=== PATIENT | male | born 1940 | race Caucasian/White ===

== ENCOUNTER 2018-02-25 18:37 | Inpatient (IN) | END 2018-03-13 14:15 | DRG 57 | DX: G30.1 Alzheimer's disease with late onset (principal); F02.81 Dementia in other diseases classified elsewhere, unspecified severity, with behavioral disturbance; I50.9 Heart failure, unspecified; R17 Unspecified jaundice; I25.10 Atherosclerotic heart disease of native coronary artery without angina pectoris; I25.2 Old myocardial infarction; Z59.0 Homelessness; Z86.73 Personal history of transient ischemic attack (TIA), and cerebral infarction without residual deficits; Z91.14 Patient's other noncompliance with medication regimen ==

== ENCOUNTER → 2018-03-27 | Outpatient (CLI) | payer MEDICARE ==
[~2018-03-27] MED LIST: CARV3.12 PO; ECASA81 PO; IOHEXOL 350 MG/ML 10 ML VIAL (for RAD DIAG) IVCONTRAST ONE; SERO50TA PO
--- NOTE | 2018-03-27 16:21 | RADRPT ---
EXAM DATE: 03/27/2018 4:06 PM EDT AGE/SEX: 77 years / Male INDICATIONS: Lower extremity pain with non healing wound left lower leg. CLINICAL DATA: This is the patient's initial encounter. Patient reports that signs and symptoms have been present for 1 month and indicates a pain score of 5/10. MEDICAL/SURGICAL HISTORY: Cardiovascular disease. Congestive heart failure. None. RADIATION DOSE: 8.20 CTDI (mGy) COMPARISON: No prior [place] exams available for comparison. TECHNIQUE: Volumetric scanning was performed using a multi-row detector CT scanner during bolus infu beto of 95 ml Omnipaque 350 (iohexol) nonionic water-soluble contrast as a single exam dose. The d johanna was post processed with a variety of visualization algorithms including full volume maximum inten sity projection, multi-planar sliding thin slab reformation, curved planar reformation, and surface r endering techniques. Using automated exposure control and adjustment of the mA and/or kV according t o patient size, radiation dose was kept as low as reasonably achievable to obtain optimal diagnostic quality images. FINDINGS: The abdominal aorta is notable for mild atheromatous irregularity and patchy intimal calcification. N o aortic stenosis, aneurysm or dissection is identified. Looking at the aortic visceral vessels, ther e is moderate arcuate ligament compression of the celiac artery. 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 Moderately severe bilateral renal artery stenosis. Ostial stenosis of the TIFFANI. In the pelvis, no significant iliac inflow stenosis is identified. The hypogastrics are patent bilate rally. Moderately diseased common femoral arteries are patent. Profundas are patent bilaterally. In the legs, the superficial femoral arteries are occluded bilaterally. On the left, flow reconstitutes in a severely diseased distal SFA which continues to a severely disea sed popliteal artery. The anterior tibial artery is patent to the distal calf however the vessel appe ars discontinuous distally. The peroneal reconstitutes and continues to the ankle. On the right side, SFA and popliteal are occluded. Tenuous flow reconstitutes in the proximal right p eroneal which continues to the foot. Elsewhere on the exam, note is made of fibrotic changes in the lung bases and small bilateral effusio ns. Cardiomegaly. Renal cysts, including a greater than 10 cm cyst arising from the lower pole of the right kidney. 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 CONCLUSION: Severe, unreconstructable occlusive runoff disease bilaterally Severe disease involving the visceral arteries Electronically signed by: Cihco Zheng MD 03/27/2018 4:19 PM EDT
== END ==
LOC: HRAD 13:06
PROVIDERS: ATTEND Family Medicine
DX: I25.10 Atherosclerotic heart disease of native coronary artery without angina pectoris (principal); I10 Essential (primary) hypertension; I74.3 Embolism and thrombosis of arteries of the lower extremities; I50.40 Unspecified combined systolic (congestive) and diastolic (congestive) heart failure; G30.1 Alzheimer's disease with late onset; F02.81 Dementia in other diseases classified elsewhere, unspecified severity, with behavioral disturbance
CPT/HCPCS: 75635; Q9967

== ENCOUNTER 2018-04-15 01:21 | Inpatient (IN) | payer MEDICARE ==
[2018-04-15] VITALS (47 sets, daily range): BP systolic 74–148; BP diastolic 44–84; PULSE 60–90; RESP 0–31; TEMP 93.2–99.4; O2SAT 95–100
[~2018-04-15] VITALS: Ht 177.8 cm; Wt 76.2 kg
[~2018-04-15 01:21] MED LIST changes: -IOHEXOL 350 MG/ML 10 ML VIAL (for RAD DIAG) IVCONTRAST ONE
[2018-04-15] MEDS ORDERED: PROPOFOL 1000 MG/100 ML INJ 100 ML IV PRN ×2 (01:30→04:00)
[2018-04-15] MEDS ORDERED: TERBUTALINE INJ 1 MG/ML AMP SQ PRN ×2 (01:30→04:00)
[2018-04-15] MEDS ORDERED: NOREPINEPHRINE-DEXTROSE DRIP 250 ML IV PRN ×3 (01:30→04:00)
[2018-04-15] MEDS: NOREPINEPHRINE 4 MG/4 ML AMP ONE ×2 (01:41→02:27)
[2018-04-15 01:54] LABS: AUTOMATED NEUTROPHIL # 6.1 TH/MM3 (1.8-7.7); BASOPHIL % 0.5 % (0.0-2.0); EOSINOPHIL % 0.2 % (0.0-4.0); HEMATOCRIT 33.6 % (39.0-51.0); LYMPH % 11.9 % (9.0-44.0); LYMPHOCYTE # 0.9 TH/MM3 (1.0-4.8); MEAN CELL VOLUME 102.8 FL (80.0-100.0); MEAN CORPUSCULAR HEMOGLOBIN 30.7 PG (27.0-34.0); MEAN PLATELET VOLUME 9.4 FL (7.0-11.0); MONOCYTE # 0.5 TH/MM3 (0-0.9); NEUT % 80.4 % (16.0-70.0); PLATELET COUNT 120 TH/MM3 (150-450); RED BLOOD COUNT 3.27 MIL/MM3 (4.50-5.90); RED CELL DISTRIBUTION WIDTH 18.2 % (11.6-17.2); WHITE BLOOD COUNT 7.5 TH/MM3 (4.0-11.0)
[2018-04-15 01:55] LABS: MEAN CORPUSCULAR HGB CONC 29.9 % (32.0-36.0)
--- NOTE | 2018-04-15 02:00 | RADRPT ---
EXAM DATE: 04/15/2018 1:50 AM EDT AGE/SEX: 77 years / Male INDICATIONS: Intubation on a unresponsive patient. CLINICAL DATA: This is the patient's initial encounter. Patient reports that signs and symptoms have been present for 1 day and indicates a pain score of Nonresponsive. MEDICAL/SURGICAL HISTORY: Cardiovascular disease. Congestive heart failure. None. COMPARISON: No prior exams available for comparison. FINDINGS: The ET tube tip is 5 cm from the henry. The NG tube tip is in the distal esophagus. This should be a dvanced. The heart size is mildly enlarged. This increased density at the medial left base in the ret rocardiac area. There is an increased density seen at the upper medial left chest. This could be rela jermaine to something on the patient. CONCLUSION: ET tube in good position. NG tube with tip in the distal esophagus. This should be advanced. Linear atelectasis or consolidation medial left base. Electronically signed by: Chico Stokes MD 04/15/2018 1:59 AM EDT
[2018-04-15 02:04] LABS: INTERNATIONAL NORMALIZED RATIO 2.5 RATIO; PROTHROMBIN TIME - PATIENT 25.5 SEC (9.8-11.6)
[2018-04-15 02:30] LABS: LACTIC ACID SEPSIS PROTOCOL 11.9 mmol/L (0.4-2.0)
[2018-04-15 02:44] LABS: BANDS 37 % (0-6); LYMPHOCYTES 10 % (9-44); METAMYELOCYTES 4 % (0-1); MONOCYTES 4 % (0-8); MYELOCYTES 1 % (0-0); NEUTROPHIL # MANUAL DIFF 6.5 TH/MM3 (1.8-7.7); POLYS (SEG NEUTROPHILS) 44 % (16-70)
--- NOTE | 2018-04-15 02:54 | PD ---
HPI Chief Complaint: Code Blue Time Seen by Provider: 01:29 Travel History International Travel<30 days: No (CARLOS) Contact w/Intl Traveler<30days: No (CARLOS) Traveled to known affect area: No (CARLOS) History of Present Illness HPI 77-year-old man presents emergency department from nursing facility following cardiac arrest. Patient was reportedly normal an hour before EMS was called, with a medical check on again he was unresponsive. EMS arrived to find CPR in progress. Therefore presenting rhythm of PEA, got to epi, had return of spontaneous circulation in route. Then lost pulses again and PEA arrest, responded again to epi. He was intubated. No other history is available. History Past Medical History Narrative Medical From review of records: Dementia, no next of kin ASCVD CHF Hypertension Peripheral arterial disease Social History Alcohol Use: No Tobacco Use: No Allergies-Medications (Allergen,Severity, Reaction): Coded Allergies: No Known Allergies (Unverified , 02/25/18) Reported Meds & Prescriptions Reported Meds & Active Scripts Active Seroquel (Quetiapine Fumarate) 50 Mg Tab 50 Mg PO DAILY@1200,[address] (Aspirin) 81 Mg Tabdr 81 Mg PO DAILY Carvedilol 3.125 Mg Tab 3.125 Mg PO BID Review of Systems ROS Limitations: Clinical Condition Physical Exam Narrative GENERAL: Ill-appearing 77-year-old man, toxic, unresponsive to any stimuli SKIN: Pale, slightly decreased skin turgor, edema in the lower extremities. HEAD: Atraumatic. Normocephalic. EYES: Pupils small, 1 mm, no response to light. ENT: No nasal bleeding or discharge. Mucous membranes pink and moist. NECK: Trachea midline. No JVD. CARDIOVASCULAR: Regular rate and rhythm. No murmur appreciated. RESPIRATORY: No spontaneous respirations GASTROINTESTINAL: Abdomen soft, non-tender, nondistended. Hepatic and splenic margins not palpable. MUSCULOSKELETAL: No obvious deformities. Decreased muscle bulk. Edema in both lower extremities. NEUROLOGICAL: Obtunded. No response to any stimulus. Data Data Last Documented VS Vital Signs Date Time Temp Pulse Resp B/P (MAP) Pulse Ox O2 Delivery O2 Flow Rate FiO2 04/15/18 02:14 79 24 99/66 (77) 100 Ventilator 100 04/15/18 01:44 99.4 Orders Orders Complete Blood Count With Diff (04/15/18 01:29) Comprehensive Metabolic Panel (04/15/18 01:29) Act Partial Throm Time (Ptt) (04/15/18 01:29) Prothrombin Time / Inr (Pt) (04/15/18 01:29) Arterial Blood Gas (Abg) (04/15/18 ) Iv Access Insert/Monitor (04/15/18 01:29) Ct Brain W/O Iv Contrast(Rout) (04/15/18 ) Chest, Single Ap (04/15/18 ) ^ Infusion (04/15/18 ) Norepinephrine-Dextrose Drip (Levophed-D (04/15/18 01:30) Terbutaline Inj (Brethine Inj) (04/15/18 01:30) Propofol 1000 Mg/100 Ml Inj (Diprivan 10 (04/15/18 01:30) Lactic Acid Sepsis Protocol (04/15/18 01:29) Blood Culture (04/15/18 01:29) Norepinephrine-Dextrose Drip (Levophed-D (04/15/18 01:45) Norepinephrine Inj (Levophed Inj) (04/15/18 01:41) Urinary Catheter Insert/Apply (04/15/18 02:24) Restraints Non-Violent MATTHEW.Q3H (04/15/18 02:24) Urinalysis - C+S If Indicated (04/15/18 02:24) Admit Order (Ed Use Only) (04/15/18 ) Ed Poc Ultrasound (04/15/18 ) Labs Laboratory Tests Test 04/15/18 01:35 04/15/18 02:05 04/15/18 02:30 04/15/18 02:39 White Blood Count 7.5 TH/MM3 Red Blood Count 3.27 MIL/MM3 Hemoglobin 10.0 GM/DL Hematocrit 33.6 % Mean Corpuscular Volume 102.8 FL Mean Corpuscular Hemoglobin 30.7 PG Mean Corpuscular Hemoglobin Concent 29.9 % Red Cell Distribution Width 18.2 % Platelet Count 120 TH/MM3 Mean Platelet Volume 9.4 FL Neutrophils (%) (Auto) 80.4 % Lymphocytes (%) (Auto) 11.9 % Monocytes (%) (Auto) 7.0 % Eosinophils (%) (Auto) 0.2 % Basophils (%) (Auto) 0.5 % Neutrophils # (Auto) 6.1 TH/MM3 Lymphocytes # (Auto) 0.9 TH/MM3 Monocytes # (Auto) 0.5 TH/MM3 Eosinophils # (Auto) 0.0 TH/MM3 Basophils # (Auto) 0.0 TH/MM3 CBC Comment AUTO DIFF Prothrombin Time 25.5 SEC Prothromb Time International Ratio 2.5 RATIO Activated Partial Thromboplast Time 61.2 SEC Lactic Acid Level 11.9 mmol/L Blood Gas Puncture Site RT FEMORAL Blood Gas Patient Temperature 98.6 Blood Gas HCO3 9 mmol/L Blood Gas Base Excess -20.3 mmol/L Blood Gas Oxygen Saturation 97 % Arterial Blood pH 7.01 Arterial Blood Partial Pressure CO2 35 mmHg Arterial Blood Partial Pressure O2 206 mmHG Arterial Blood Oxygen Content 14.4 Vol % Arterial Blood Carboxyhemoglobin 0.2 % Arterial Blood Methemoglobin 0.5 % Blood Gas Hemoglobin 10.2 G/DL Oxygen Delivery Device VENTILATOR Blood Gas Ventilator Setting Blood Gas Inspired Oxygen 100 % MDM Medical Decision Making Medical Screen Exam Complete: Yes Emergency Medical Condition: Yes Interpretation(s) My review of EKG: Normal sinus rhythm at a rate of 85, leftward axis, QRS complexes wide at 141, no definite evidence of acute ischemia. LABS: CBC shows mild anemia CMP Lactate 11.9 INR 2.5 UA pending ABG 7.0 /, base excess -20.3 Chest x-ray: ET tube in good position. NG tube within the distal esophagus. Differential Diagnosis Cardiac arrest, hypoglycemia, infection, Narrative Course Medical decision making This is a 77-year-old longterm patient with dementia. No known next of kin. Came in following cardiac arrest. Etiology of cardiac arrest and ischemic. This could cause a cardiac arrest could be secondary to the arrest or to sepsis or infection. Final return of spontaneous relations perfusion still appeared very poor. His gas shows severe metabolic acidosis. He appears volume up on exam. He has edema. I did a bedside ultrasound which showed full left ventricle, and a plethoric IVC with no respiratory variation. Proceeded with adding vasopressor, and propofol as he was jumping on the tube. We will get a CT scan of his head. Will admit to the ICU. I spoke with Dr. Worrell, who will admit the patient. Critical Care Narrative Aggregate critical care time was 45 minutes. Time to perform other separately billable procedures was not included in the critical care time. My time did not include minutes spent treating any other patients simultaneously or on activities that did not directly contribute to the patient's treatment. The services I provided to this patient were to treat and/or prevent clinically significant deterioration that could result in: , disability, recommend sepsis, heart failure, increased morbidity. I provided critical care services requiring my management, as noted below: Chart data review, documentation time, medication orders and management, vital sign assessments/reviewing monitor data, ordering and reviewing lab tests, ordering and interpreting/reviewing x-rays and diagnostic studies, care of the patient and discussion of the patient with the admitting physicians. Procedures Procedure Narrative [id number] ultrasound: Focused echo shows full LV with decreased contractility, plethoric IVC with no respiratory variation. Physician Communication Physician Communication Spoke with Dr. Worrell, will admit the patient to the ICU. José Miguel Morales MD Apr 15, 2018 02:54
[2018-04-15 02:56] LABS: BACTERIA, URINE MANY /hpf; BILIRUBIN, URINE NEG (NEG); BLOOD, URINE MOD (NEG); GLUCOSE,URINE NEG (NEG); HYALINE CAST, URINE 32 /lpf (RARE); KETONE, URINE NEG (NEG); MUCUS URINE FEW /lpf (OCC); NITRITE,URINE NEG (NEG); SPERM, URINE RARE; SQUAMOUS EPITHELIAL CELL URINE 2 /hpf (0-5); URINE COLOR Amber (YELLW/STRAW); URINE LEUKOCYTE ESTERASE NEG (NEG)
[2018-04-15] MEDS ORDERED: CEFEPIME INJ 2,000 MG in SODIUM CHLORIDE 0.9% INJ 100 ML IV ONE (03:00)
[2018-04-15] MEDS ORDERED: VANCOMYCIN INJ 1,000 MG in SODIUM CHLOR 0.9% 250 ML INJ 250 ML IV ONE (03:00)
[2018-04-15] MEDS ORDERED: SODIUM CHLOR 0.9% 1000 ML INJ 1,000 ML IV ONE (03:15)
[2018-04-15] MEDS ORDERED: fentaNYL DRIP 250 ML ONE (03:39)
[2018-04-15] MEDS ORDERED: SODIUM CHLOR 0.9% 1000 ML INJ 1,000 ML IV SCH (03:47)
[2018-04-15] MEDS: fentaNYL DRIP 250 ML IV PRN ×2 (03:50→15:49)
--- NOTE | 2018-04-15 03:58 | HHI.HP ---
HPI Service Critical Care Medicine Primary Care Physician Unknown Admission Diagnosis Cardiac arrest Diagnosis: Travel History International Travel<30 Days: No (CARLOS) Contact w/Intl Traveler <30 Da: No (CARLOS) Traveled to Known Affected Are: No (CARLOS) History of Present Illness 77-year-old man presents emergency department from nursing facility following cardiac arrest. Patient was reportedly normal an hour before EMS was called, with a medical check on again he was unresponsive. EMS arrived to find CPR in progress. Initial rhythm of PEA, he has received 2 cycles of CPR and 2 doses of epinephrine with return of spontaneous circulation in route. Then lost pulses again and PEA arrest, responded again to epinephrine. He was intubated. No other history is available. Review of Systems ROS Unobtainable patient sedated and intubated Past Family Social History Allergies: Coded Allergies: No Known Allergies (Unverified , 04/15/18) Past Medical History Dementia, no next of kin ASCVD CHF Hypertension Peripheral arterial disease Past Surgical History Unable to obtain Reported Medications Reported Meds & Active Scripts Active Seroquel (Quetiapine Fumarate) 50 Mg Tab 50 Mg PO DAILY@1200,[address] (Aspirin) 81 Mg Tabdr 81 Mg PO DAILY Carvedilol 3.125 Mg Tab 3.125 Mg PO BID Reported Tylenol (Acetaminophen) 325 Mg Tab 325 Mg PO BID Hydrochlorothiazide 12.5 Mg Cap 12.5 Mg PO DAILY Aricept (Donepezil) 23 Mg Tab 10 Mg PO HS Do not split, crushed or chewed. Active Ordered Medications Current Medications Medications (Trade) Dose Ordered Sig/Aure Route PRN Reason Start Time Stop Time Status Last Admin Dose Admin Terbutaline Sulfate (Brethine Inj) 1 mg UNSCH PRN SQ For Extravasation 04/15/18 01:30 Fentanyl Citrate 250 ml @ 5 mls/hr TITRATE PRN IV SEDATION 04/15/18 03:30 04/15/18 03:50 Aspirin (Ecotrin Ec) 81 mg DAILY PO 04/15/18 09:00 Quetiapine Fumarate (SEROquel) 50 mg DAILY@1200,1800 PO 04/15/18 12:00 Sodium Chloride 1,000 ml @ 84 mls/hr [id number] IV 04/15/18 03:47 Sodium Chloride (NS Flush) 2 ml UNSCH PRN IV FLUSH FLUSH AFTER USING IV ACCESS 04/15/18 04:00 Sodium Chloride (NS Flush) 2 ml BID IV FLUSH 04/15/18 09:00 Acetaminophen (Tylenol) 650 mg Q6H PRN PO PAIN 1-5 AND/OR FEVER >101F 04/15/18 04:00 Morphine Sulfate (Morphine Inj) 2 mg Q2H PRN IV PUSH PAIN SCALE 6 TO 10 04/15/18 04:00 Famotidine (Pepcid Inj) 20 mg Q12HR IV PUSH 04/15/18 09:00 Lorazepam (Ativan Inj) 1 mg Q1H PRN IV PUSH Agitation/Sedation 04/15/18 04:00 Artificial Tears (Tears Naturale Opth Soln) 1 drop TID EACH EYE 04/15/18 09:00 Ondansetron HCl (Zofran Odt) 4 mg Q6H PRN PO NAUSEA OR VOMITING 04/15/18 04:00 Albuterol/ Ipratropium (Duoneb Neb) 1 ampule Q2HR NEB PRN INH WHEEZING 04/15/18 04:00 Miscellaneous Information ([facility] [place] Nursing Information) 1 [id number] XX 04/15/18 04:00 Chlorhexidine Gluconate (Chlorhexidine 2% Cloth) 3 pack Taper DAILY@04 TOP 04/15/18 04:00 04/11/19 03:59 Chlorhexidine Gluconate (Chlorhexidine 2% Cloth) 3 pack UNSCH PRN TOP HYGIENIC CARE 04/15/18 04:00 Senna/Docusate Sodium (Mary-Colace) 1 tab BID PO 04/15/18 09:00 Magnesium Hydroxide (Milk Of Magnesia Liq) 30 ml Q12H PRN PO Mild constipation 04/15/18 04:00 Sennosides (Senokot) 17.2 mg Q12H PRN PO Moderate constipation 04/15/18 04:00 Bisacodyl (Dulcolax Supp) 10 mg DAILY PRN RECTAL SEVERE CONSITIPATION 04/15/18 04:00 Lactulose (Lactulose Liq) 30 ml DAILY PRN PO SEVERE CONSITIPATION 04/15/18 04:00 Chlorhexidine Gluconate (Peridex 0.12% Liq) 15 ml BID@08,20 MT 04/15/18 08:00 Propofol 100 ml @ 2.1 mls/hr TITRATE PRN IV SEDATION 04/15/18 04:00 Lorazepam (Ativan Inj) 1 mg Q1H PRN IV PUSH SEE LABEL COMMENTS 04/15/18 04:00 Meperidine HCl (Demerol Inj) 25 mg Q2H PRN IV PUSH SHIVERING 04/15/18 04:00 Artificial Tears (Lacrilube Opht Oint) 1 applic Q4H PRN EACH EYE While on Neuromuscular Nelia 04/15/18 04:00 Miscellaneous Information 0 ml @ 0 mls/hr UNSCH IV 04/15/18 04:00 Potassium Chloride 100 ml @ 50 mls/hr Q2H PRN IV For Potassium 2.8 - 3.2 mEq/L 04/15/18 04:00 Potassium Chloride 100 ml @ 50 mls/hr Q2H PRN IV For Potassium 2.8 - 3.2 mEq/L 04/15/18 04:00 Potassium Bicarb/ Potassium Chloride (K-Lyte Cl Eff) 50 meq UNSCH PRN PO For Potassium 3.3 - 3.5 mEq/L 04/15/18 04:00 Potassium Chloride 100 ml @ 25 mls/hr UNSCH PRN IV For Potassium 3.3 - 3.5 mEq/L 04/15/18 04:00 Potassium Chloride 100 ml @ 50 mls/hr Q2H PRN IV For Potassium 3.3 - 3.5 mEq/L 04/15/18 04:00 Magnesium Sulfate 4 gm/Sodium Chloride 100 ml @ 50 mls/hr UNSCH PRN IV For Magnesium 0.9 - 1.1 mg/dL 04/15/18 04:00 Magnesium Oxide (Mag-Ox) 800 mg UNSCH PRN PO For Magnesium 1.2 - 1.6 mg/dL 04/15/18 04:00 Magnesium Sulfate 2 gm/Sodium Chloride 100 ml @ 50 mls/hr UNSCH PRN IV For Magnesium 1.2 - 1.6 mg/dL 04/15/18 04:00 Potassium Phosphate (K-Phos) 2,000 mg Q4H PRN PO For Phosphorus < 2.5 mg/dL 04/15/18 04:00 Sodium Phosphate 30 mmol/Sodium Chloride 250 ml @ 42 mls/hr UNSCH PRN IV For Phosphorus < 2.5 mg/dL 04/15/18 04:00 Potassium Phosphate (K-Phos) 2,000 mg UNSCH PRN PO/TUBE SEE LABEL COMMENTS 04/15/18 04:00 Potassium Phosphate 30 mmol/ Sodium Chloride 260 ml @ 42 mls/hr UNSCH PRN IV SEE LABEL COMMENTS 04/15/18 04:00 Terbutaline Sulfate (Brethine Inj) 1 mg UNSCH PRN SQ For Extravasation 04/15/18 04:00 Norepinephrine Bitartrate 4 mg/ Sodium Chloride 250 ml @ 7.5 mls/hr TITRATE PRN IV Blood pressure management 04/15/18 04:15 Dextrose (D50w (Vial) Inj) 50 ml UNSCH PRN IV PUSH HYPOGLYCEMIA-SEE COMMENTS 04/15/18 04:30 Glucagon (Glucagon Inj) 1 mg UNSCH PRN OTHER HYPOGLYCEMIA-SEE COMMENTS 04/15/18 04:30 Family History Unable to obtain Social History Unable to obtain Physical Exam Vital Signs Vital Signs Date Time Temp Pulse Resp B/P (MAP) Pulse Ox O2 Delivery O2 Flow Rate FiO2 04/15/18 03:30 78 95/49 (64) 04/15/18 03:18 72 28 83/44 (57) 97 Ventilator 70 04/15/18 03:13 71 78/42 04/15/18 03:12 71 30 79/44 (56) 97 Ventilator 70 04/15/18 03:09 71 31 89/44 (59) 99 Ventilator 70 04/15/18 03:02 72 30 86/46 (59) 98 Ventilator 70 04/15/18 03:01 73 86/46 04/15/18 02:57 73 29 100/47 (64) 98 Ventilator 70 04/15/18 02:47 76 30 148/56 (86) 100 Ventilator 70 04/15/18 02:14 79 24 99/66 (77) 100 Ventilator 100 04/15/18 02:05 100 70 04/15/18 02:03 82 24 92/59 (70) 99 Ventilator 100 04/15/18 01:51 84 22 92/58 (69) 99 Ventilator 100 04/15/18 01:44 99.4 84 21 91/58 (69) 100 Ventilator 100 04/15/18 01:40 100 04/15/18 01:30 85 14 109/72 (84) 98 04/15/18 01:20 98 100 Physical Exam GENERAL: Elderly appearing gentleman, comatose, mechanically ventilated SKIN: Warm and dry. HEAD: Normocephalic. EYES: No scleral icterus. No injection or drainage. NECK: Supple, trachea midline. No JVD or lymphadenopathy. CARDIOVASCULAR: Regular rate and rhythm without murmurs, gallops, or rubs. RESPIRATORY: Breath sounds equal bilaterally. No accessory muscle use. GASTROINTESTINAL: Abdomen soft, non-tender, nondistended. MUSCULOSKELETAL: No cyanosis, or edema. BACK: Nontender without obvious deformity. NEURO EXAM: GCS: 3 Mental Status: The patient is unresponsive, GCS 3, pupils symmetrical 1 mm sluggish. Laboratory Laboratory Tests Test 04/15/18 01:35 04/15/18 02:05 04/15/18 02:30 04/15/18 03:00 White Blood Count 7.5 Red Blood Count 3.27 Hemoglobin 10.0 Hematocrit 33.6 Mean Corpuscular Volume 102.8 Mean Corpuscular Hemoglobin 30.7 Mean Corpuscular Hemoglobin Concent 29.9 Red Cell Distribution Width 18.2 Platelet Count 120 Mean Platelet Volume 9.4 Neutrophils (%) (Auto) 80.4 Lymphocytes (%) (Auto) 11.9 Monocytes (%) (Auto) 7.0 Eosinophils (%) (Auto) 0.2 Basophils (%) (Auto) 0.5 Neutrophils # (Auto) 6.1 Lymphocytes # (Auto) 0.9 Monocytes # (Auto) 0.5 Eosinophils # (Auto) 0.0 Basophils # (Auto) 0.0 CBC Comment AUTO DIFF Differential Total Cells Counted 100 Neutrophils % (Manual) 44 Band Neutrophils % 37 Lymphocytes % 10 Monocytes % 4 Neutrophils # (Manual) 6.5 Metamyelocytes 4 Myelocytes 1 Differential Comment FINAL DIFF MANUAL Platelet Estimate LOW Platelet Morphology Comment ENLARGED Prothrombin Time 25.5 Prothromb Time International Ratio 2.5 Activated Partial Thromboplast Time 61.2 Lactic Acid Level 11.9 Blood Gas Puncture Site RT FEMORAL RT FEMORAL Blood Gas Patient Temperature 98.6 98.6 Blood Gas HCO3 9 8 Blood Gas Base Excess -20.3 -19.1 Blood Gas Oxygen Saturation 97 97 Arterial Blood pH 7.01 7.12 Arterial Blood Partial Pressure CO2 35 27 Arterial Blood Partial Pressure O2 206 183 Arterial Blood Oxygen Content 14.4 13.8 Arterial Blood Carboxyhemoglobin 0.2 0.6 Arterial Blood Methemoglobin 0.5 0.7 Blood Gas Hemoglobin 10.2 9.9 Oxygen Delivery Device VENTILATOR VENTILATOR Blood Gas Ventilator Setting Blood Gas Inspired Oxygen 100 70 Urine Color Kristy Urine Turbidity TURBID Urine pH 5.0 Urine Specific [place] 1.024 Urine Protein >=500 Urine Glucose (UA) NEG Urine Ketones NEG Urine Occult Blood MOD Urine Nitrite NEG Urine Bilirubin NEG Urine Urobilinogen 4.0 OR GREATER Urine Leukocyte Esterase NEG Urine RBC 56 Urine WBC 25 Urine Squamous Epithelial Cells 2 Urine Bacteria MANY Urine Hyaline Casts 32 Urine Granular Casts 25 Urine Mucus FEW Urine Sperm RARE Microscopic Urinalysis Comment CATH-CULTURE IND Test 04/15/18 03:50 Date/Time Source Procedure Growth Status 04/15/18 01:35 Blood Peripheral Aerobic Blood Culture Pending Received 04/15/18 01:35 Blood Peripheral Anaerobic Blood Culture Pending Received 04/15/18 02:30 Urine Catheterized Urine Urine Culture Pending Received Result Diagram: 04/15/18 0135 Imaging Last 24 hours Impressions Chest X-Ray 04/15/18 0000 Signed Impressions: CONCLUSION: ET tube in good position. NG tube with tip in the distal esophagus. This should be advanced. Linear atelectasis or consolidation medial left base. Caprini VTE Risk Assessment Caprini VTE Risk Assessment: Mod/High Risk (score >= 2) Caprini Risk Assessment Model Point Value = 1 Point Value = 2 Point Value = 3 Point Value = 5 Age 41-60 Minor surgery BMI > 25 kg/m2 Swollen legs Varicose veins or History of unexplained or recurrent spontaneous Oral contraceptives or hormone replacement Sepsis (< 1 month) Serious lung disease, including pneumonia (< 1 month) Abnormal pulmonary function Acute myocardial infarction Congestive heart failure (< 1 month) History of inflammatory bowel disease Medical patient at bed rest Age 61-74 Arthroscopic surgery Major open surgery (> 45 min) Laparoscopic surgery (> 45 min) Malignancy Confined to bed (> 72 hours) Immobilizing plaster cast Central venous access Age >= 75 History of VTE Family history of VTE Factor V Leiden Prothrombin [id number] Lupus anticoagulant Anticardiolipin antibodies Elevated serum homocysteine Heparin-induced thrombocytopenia Other congenital or acquired thrombophilia Stroke (< 1 month) Elective arthroplasty Hip, pelvis, or leg fracture Acute spinal cord injury (< 1 month) Prophylaxis Regimen Total Risk Factor Score Risk Level Prophylaxis Regimen 0-1 Low Early ambulation 2 Moderate Order ONE of the following: *Sequential Compression Device (SCD) *Heparin 5000 units SQ BID 3-4 Higher Order ONE of the following medications: *Heparin 5000 units SQ TID *Enoxaparin/Lovenox 40 mg SQ daily (WT < 150 kg, CrCl > 30 mL/min) *Enoxaparin/Lovenox 30 mg SQ daily (WT < 150 kg, CrCl > 10-29 mL/min) *Enoxaparin/Lovenox 30 mg SQ BID (WT < 150 kg, CrCl > 30 mL/min) AND/OR *Sequential Compression Device (SCD) 5 or more Highest Order ONE of the following medications: *Heparin 5000 units SQ TID (Preferred with Epidurals) *Enoxaparin/Lovenox 40 mg SQ daily (WT < 150 kg, CrCl > 30 mL/min) *Enoxaparin/Lovenox 30 mg SQ daily (WT < 150 kg, CrCl > 10-29 mL/min) *Enoxaparin/Lovenox 30 mg SQ BID (WT < 150 kg, CrCl > 30 mL/min) AND *Sequential Compression Device (SCD) Assessment and Plan Assessment and Plan Respiratory failure -Status post cardiac arrest -Mechanical ventilation -No weaning until neurologically improved -Vent bundle -CXR and ABG daily Cardiac arrest -Rule out acute coronary syndrome -No EKG changes suggestive ST elevation -Troponin 0.5 -We will monitor trend -Hypothermia protocol -CT head pending Metabolic acidosis -With shock liver -Likely due to hypoperfusion -Sodium bicarbonate -Follow-up blood cultures to rule out sepsis Coagulopathy -With shock liver -No documented anticoagulation meds -Monitor for bleeding -Supportive care DVT GI prophylaxis -Teds SCDs -No pharmacological DVT prophylaxis due to coagulopathy and liver failure -IV Pepcid Critical Care: The total critical care time was 35 minutes. Time to perform other separately billable procedures was not included in the critical care time. Brennan Worrell MD Apr 15, 2018 3:58 am
[2018-04-15] MEDS ORDERED: POTASSIUM CHLORIDE 25 MEQ EFFERVESCENT TAB PO PRN (04:00)
[2018-04-15] MEDS: CHLORHEXIDINE GLUCONATE 2 % 1 PACK (2 CLOTHS) TOP SCH (04:00)
[2018-04-15] MEDS ORDERED: MORPHINE SULFATE 4 MG/ML INJ IV PUSH PRN (04:00)
[2018-04-15] MEDS ORDERED: RESP: ALBUTEROL 2.5 MG/IPRATROPIUM 0.5 MG NEB (PRN) INH (04:00)
[2018-04-15] MEDS ORDERED: LACTULOSE SYRUP 20 GM/30 ML CUP PO PRN (04:00)
[2018-04-15] MEDS ORDERED: MAGNESIUM HYDROXIDE SUSP 30 ML CUP PO PRN (04:00)
[2018-04-15] MEDS ORDERED: ONDANSETRON ODT 4 MG TAB PO PRN (04:00)
[2018-04-15] MEDS ORDERED: SODIUM PHOSPHATE INJ 30 MMOL in SODIUM CHLOR 0.9% 250 ML INJ 240 ML IV PRN (04:00)
[2018-04-15] MEDS ORDERED: POTASSIUM PHOSPHATE MONOBASIC 500 MG TAB PO PRN (04:00)
[2018-04-15] MEDS ORDERED: NURSING INFORMATION XX SCH (04:00)
[2018-04-15] MEDS ORDERED: CHLORHEXIDINE GLUCONATE 2 % 1 PACK (2 CLOTHS) TOP PRN (04:00)
[2018-04-15] MEDS ORDERED: SENNOSIDES 8.6 MG TAB PO PRN (04:00)
[2018-04-15] MEDS ORDERED: MEPERIDINE HCL 25 MG/ML VIAL IV PUSH PRN (04:00)
[2018-04-15] MEDS ORDERED: POTASSIUM CHLOR 40 MEQ PREMIX 100 ML IV PRN ×2 (04:00)
[2018-04-15] MEDS ORDERED: SODIUM CHLORIDE 0.9% FLUSH 10 ML FLUSH IV FLUSH PRN ×2 (04:00)
[2018-04-15] MEDS ORDERED: POTASSIUM PHOSPHATE MONOBASIC 500 MG TAB PO/TUBE PRN (04:00)
[2018-04-15] MEDS ORDERED: MAGNESIUM SULFATE INJ 2 GM in SODIUM CHLORIDE 0.9% INJ 96 ML IV PRN (04:00)
[2018-04-15] MEDS ORDERED: MAGNESIUM OXIDE 400 MG TAB PO PRN (04:00)
[2018-04-15] MEDS ORDERED: POTASSIUM PHOSPHATE INJ 30 MMOL in SODIUM CHLOR 0.9% 250 ML INJ 250 ML IV PRN (04:00)
[2018-04-15] MEDS ORDERED: LORazepam 2 MG/ML VIAL IV PUSH PRN ×2 (04:00)
[2018-04-15] MEDS ORDERED: BISACODYL 10 MG SUPP RECTAL PRN (04:00)
[2018-04-15] MEDS ORDERED: ACETAMINOPHEN 325 MG TAB PO PRN (04:00)
[2018-04-15] MEDS ORDERED: ARTIFICIAL TEARS OPTH OINT 3.5 APPLIC/3.5 GM TUBO EACH EYE PRN (04:00)
[2018-04-15] MEDS ORDERED: POTASSIUM CHLOR 20 MEQ PREMIX 100 ML IV PRN ×2 (04:00)
[2018-04-15] MEDS ORDERED: MAGNESIUM SULFATE INJ 4 GM in SODIUM CHLORIDE 0.9% INJ 92 ML IV PRN (04:00)
[2018-04-15] MEDS ORDERED: HYDR12.57 PO (04:27)
[2018-04-15] MEDS ORDERED: ARIC23TA PO (04:27)
[2018-04-15] MEDS ORDERED: TYLE325T PO (04:27)
[2018-04-15] MEDS ORDERED: DEXTROSE 50% IN WATER 50 ML VIAL(D50) IV PUSH PRN ×2 (04:30→05:00)
[2018-04-15] MEDS ORDERED: GLUCAGON 1 MG/ML VIAL OTHER PRN ×2 (04:30→05:00)
[2018-04-15 04:43] LABS: CREATININE 1.63 MG/DL (0.60-1.30)
[2018-04-15 04:44] LABS: TOTAL PROTEIN 4.4 GM/DL (6.4-8.2)
[2018-04-15 04:45] LABS: ALBUMIN 1.9 GM/DL (3.4-5.0); CALCIUM 6.3 MG/DL (8.5-10.1); CALCIUM-PROTEIN CORRECTED 7.6 MG/DL (8.5-10.1); MAGNESIUM 2.2 MG/DL (1.5-2.5); PHOSPHORUS 7.2 MG/DL (2.5-4.9)
[2018-04-15 04:46] LABS: TOTAL BILIRUBIN ADULT 1.4 MG/DL (0.2-1.0)
[2018-04-15 04:47] LABS: TROPONIN I 0.51 NG/ML (0.02-0.05)
[2018-04-15] MEDS: SODIUM BICARBONATE 8.4% INJ 150 MEQ in DEXTROSE 5% IN WATE 1000ML INJ 1,000 ML IV SCH ×4 (05:34→17:39)
--- NOTE | 2018-04-15 05:58 | RADRPT ---
EXAM DATE: 04/15/2018 5:53 AM EDT AGE/SEX: 77 years / Male INDICATIONS: Post code. CLINICAL DATA: This is the patient's initial encounter. Patient reports that signs and symptoms have been present for 1 day and indicates a pain score of Nonresponsive. MEDICAL/SURGICAL HISTORY: Congestive heart failure. Myocardial infarction Tonsillectomy. RADIATION DOSE: 66.34 CTDI (mGy) COMPARISON: No prior exams available for comparison. TECHNIQUE: CT of the head without contrast. Using automated exposure control and adjustment of the mA and/or kV according to patient size, radiation dose was kept as low as reasonably achievable to ob tain optimal diagnostic quality images. DICOM format image data is available electronically for revi ew and comparison. FINDINGS: Cerebrum: The ventricles are dilated. There is mild widening of the sulci. There is decreased densit y in the periventricular regions. There is decreased density in the right frontal white matter. No e vidence of midline shift, mass lesion, hemorrhage or acute infarction. No extraaxial fluid collectio ns are seen. Posterior Fossa: There appears to be a small hypodensity potentially representing an old lacunar inf arct at the posterior medial left cerebellar hemisphere. Otherwise, the cerebellum and brainstem are intact. The 4th ventricle is midline. The cerebellopontine angle is unremarkable. Extracranial: The visualized portion of the orbits is intact. Skull: The calvaria is intact. No evidence of skull fracture. CONCLUSION: 1. Enlargement of the ventricles and mild dilatation of the sulci. This could be related to normal p ressure hydrocephalus given the ventricles are dilated out of proportion to the sulcal widening. 2. Decreased density in the periventricular white matter. This is most prominent in the right fronta l white matter 3. No areas of definite hemorrhage or mass effect are seen. Electronically signed by: Chico Stokes MD 04/15/2018 5:57 AM EDT
[2018-04-15] MEDS ORDERED: VASOPRESSIN INJ 40 UNITS in DEXTROSE 5% IN WATER 100ML INJ 98 ML IV SCH ×2 (07:54)
[2018-04-15] MEDS ORDERED: MIDAZOLAM 100 MG/100 ML INJ 100 ML IV PRN (08:00)
[2018-04-15] MEDS: INSULIN NovoLIN REGULAR SUPPLEMENTAL SCALE SQ SCH ×4 (08:00→20:21)
[2018-04-15] MEDS ORDERED: RASS Change Order XX ONE (08:30)
[2018-04-15] MEDS ORDERED: SODIUM BICARBONATE 8.4% INJ 50 MEQ/50 ML SYR IV PUSH ONE (08:30)
[2018-04-15] MEDS: VASOPRESSIN INJ 40 UNITS in SODIUM CHLORIDE 0.9% INJ 98 ML IV SCH (08:55)
[2018-04-15] MEDS: MIDAZOLAM 50 MG/NS 50 ML DRIP Premix IV PRN ×2 (08:57→15:49)
[2018-04-15] MEDS: NOREPINEPHRINE INJ 4 MG in SODIUM CHLOR 0.9% 250 ML INJ 246 ML IV PRN ×2 (08:57→15:49)
[2018-04-15] MEDS: DOCUSATE SODIUM 50 MG/SENNA 8.6 MG TAB PO SCH ×2 (08:58→20:12)
[2018-04-15] MEDS: ASPIRIN EC 81 MG TABEC PO SCH (08:58)
[2018-04-15] MEDS: FAMOTIDINE 20 MG/2 ML VIAL IV PUSH SCH ×2 (08:58→20:15)
[2018-04-15] MEDS ORDERED: SODIUM CHLORIDE 0.9% FLUSH 10 ML FLUSH IV FLUSH SCH (09:00)
[2018-04-15] MEDS: ARTIFICIAL TEARS OPTH SOLN 15 ML BTL EACH EYE SCH ×3 (09:00→17:40)
[2018-04-15] MEDS: SODIUM CHLORIDE 0.9% FLUSH 10 ML FLUSH IV FLUSH SCH ×2 (09:01→20:11)
[2018-04-15] MEDS: CHLORHEXIDINE 0.12% (ORAL KIT) 15 ML CUP MT SCH ×2 (09:01→20:00)
[2018-04-15] MEDS ORDERED: GELATIN 12 MM/7 MM FOAM ONE ×2 (10:17→12:51)
--- NOTE | 2018-04-15 11:42 | PD.CONS ---
Consult Service Palliative Care . Consult Requested By Dr. Worrell . Primary Care Physician Unknown . Reason for Consultation a. To assist with evaluation and management of symptoms including: pain b. To assist medical decision maker(s) with: better understanding of current medical conditions; weighing benefits/burdens of medical treatment options; making medical treatment decisions. . HPI History of Present Illness Mr. Fountain is a 77-year-old male shelter resident who presented to [facility] ED status post PEA arrest. Patient had reportedly been seen normal 1 hour before 911 was activated. Upon EMS arrival, CPR was in progress. Initial rhythm of PEA; patient received 2 rounds of CPR and 2 doses of epinephrine with ROSC. He again went into PEA arrest and responded again to epinephrine. Patient was intubated en route. Additional diagnostic data: * Vital signs: Pulse 85, respirations 14, BP 109/72, oxygen saturation 98% on room air * WBC: 7.5, hemoglobin 10.0, hematocrit 33.6, platelets 120, neutrophils 80.4% * Lactic acid: 11.9 * Sodium: 138, potassium 5.6, chloride 107, glucose 288, calcium 6.3, phosphorus 7.2, magnesium 2.2 * BUN: 25, creatinine 1.63, GFR 41 * Total bilirubin: 1.4, AST 7768, ALT 3281, alkaline phosphatase 240 * Ammonia: 77 * Troponin: 0.51 * Total protein: 4.4, albumin 1.9 * PT: 25.5, INR 2.5, APTT 61.2 * Urinalysis indicative of UTI; culture pending * Blood culture pending * Toxicology screenings were negative * CT brain showing enlargement of the ventricles and mild dilatation of the sulci. This could be related to normal pressure hydrocephalus given the ventricles are dilated out of proportion to the sulcal widening. Decreased density in the periventricular white matter. This is most prominent in the right frontal white matter. No areas of definite hemorrhage or mass-effect are seen. * Chest x-ray showed linear atelectasis or consolidation medial left base. Patient was admitted to the intensive care unit; hypothermia protocol was initiated. Patient is sedated on fentanyl and Versed, requiring significant pressor support. Palliative Care was consulted to assist with symptom management and to assist with clarification of medical treatment goals. In reviewing the notes, patient has a niece (Kathryn Manriquez) who previously expressed that she did not wish to act in the role of healthcare proxy decision- maker. A message was left on her voicemail with palliative care contact information x 2; awaiting return phone call. . Function/Cognitive Trajectory Patient has a history of dementia. Per facility staff, patient was ambulating with a rolling walker. He was relatively independent with ADLs and would refuse assistance from staff members. Occasionally incontinent of urine. . Review of Systems ROS Limitations: Clinical Condition, Intubated, Altered Mental Status, Poor Historian Past Family Social History Coded Allergies: No Known Allergies (Unverified , 04/15/18) Past Medical History Dementia ASCVD CHF Hypertension Peripheral arterial disease . Past Surgical History Seroquel (Quetiapine Fumarate) 50 Mg Tab 50 Mg PO DAILY@1200,[address] (Aspirin) 81 Mg Tabdr 81 Mg PO DAILY Carvedilol 3.125 Mg Tab 3.125 Mg PO BID . Reported Medications Reported Tylenol (Acetaminophen) 325 Mg Tab 325 Mg PO BID Hydrochlorothiazide 12.5 Mg Cap 12.5 Mg PO DAILY Aricept (Donepezil) 23 Mg Tab 10 Mg PO HS Do not split, crushed or chewed. . Current Medications Medications (Trade) Dose Ordered Sig/Aure Route Start Time Stop Time Status Last Admin Fentanyl Citrate 250 ml @ 5 mls/hr TITRATE PRN IV 04/15/18 03:30 04/15/18 03:50 (Ecotrin Ec) 81 mg DAILY PO 04/15/18 09:00 04/15/18 08:58 (SEROquel) 50 mg DAILY@1200,1800 PO 04/15/18 12:00 (NS Flush) 2 ml UNSCH PRN IV FLUSH 04/15/18 04:00 (NS Flush) 2 ml BID IV FLUSH 04/15/18 09:00 04/15/18 09:01 (Tylenol) 650 mg Q6H PRN PO 04/15/18 04:00 (Morphine Inj) 2 mg Q2H PRN IV PUSH 04/15/18 04:00 (Pepcid Inj) 20 mg Q12HR IV PUSH 04/15/18 09:00 04/15/18 08:58 (Ativan Inj) 1 mg Q1H PRN IV PUSH 04/15/18 04:00 (Tears Naturale Opth Soln) 1 drop TID EACH EYE 04/15/18 09:00 (Zofran Odt) 4 mg Q6H PRN PO 04/15/18 04:00 (Duoneb Neb) 1 ampule Q2HR NEB PRN INH 04/15/18 04:00 ([facility] Information) 1 [id number] XX 04/15/18 04:00 (Chlorhexidine 2% Cloth) 3 pack Taper DAILY@04 TOP 04/15/18 04:00 04/11/19 03:59 (Chlorhexidine 2% Cloth) 3 pack UNSCH PRN TOP 04/15/18 04:00 (Mary-Colace) 1 tab BID PO 04/15/18 09:00 04/15/18 08:58 (Milk Of Magnesia Liq) 30 ml Q12H PRN PO 04/15/18 04:00 (Senokot) 17.2 mg Q12H PRN PO 04/15/18 04:00 (Dulcolax Supp) 10 mg DAILY PRN RECTAL 04/15/18 04:00 (Lactulose Liq) 30 ml DAILY PRN PO 04/15/18 04:00 (Peridex 0.12% Liq) 15 ml BID@08,20 MT 04/15/18 08:00 04/15/18 09:01 Propofol 100 ml @ 2.1 mls/hr TITRATE PRN IV 04/15/18 04:00 (Ativan Inj) 1 mg Q1H PRN IV PUSH 04/15/18 04:00 (Demerol Inj) 25 mg Q2H PRN IV PUSH 04/15/18 04:00 (Lacrilube Opht Oint) 1 applic Q4H PRN EACH EYE 04/15/18 04:00 Miscellaneous Information 0 ml @ 0 mls/hr UNSCH IV 04/15/18 04:00 Potassium Chloride 100 ml @ 50 mls/hr Q2H PRN IV 04/15/18 04:00 Potassium Chloride 100 ml @ 50 mls/hr Q2H PRN IV 04/15/18 04:00 (K-Lyte Cl Eff) 50 meq UNSCH PRN PO 04/15/18 04:00 Potassium Chloride 100 ml @ 25 mls/hr UNSCH PRN IV 04/15/18 04:00 Potassium Chloride 100 ml @ 50 mls/hr Q2H PRN IV 04/15/18 04:00 Magnesium Sulfate 4 gm/Sodium Chloride 100 ml @ 50 mls/hr UNSCH PRN IV 04/15/18 04:00 (Mag-Ox) 800 mg UNSCH PRN PO 04/15/18 04:00 Magnesium Sulfate 2 gm/Sodium Chloride 100 ml @ 50 mls/hr UNSCH PRN IV 04/15/18 04:00 (K-Phos) 2,000 mg Q4H PRN PO 04/15/18 04:00 Sodium Phosphate 30 mmol/Sodium Chloride 250 ml @ 42 mls/hr UNSCH PRN IV 04/15/18 04:00 (K-Phos) 2,000 mg UNSCH PRN PO/TUBE 04/15/18 04:00 Potassium Phosphate 30 mmol/ Sodium Chloride 260 ml @ 42 mls/hr UNSCH PRN IV 04/15/18 04:00 (Brethine Inj) 1 mg UNSCH PRN SQ 04/15/18 04:00 Norepinephrine Bitartrate 4 mg/ Sodium Chloride 250 ml @ 7.5 mls/hr TITRATE PRN IV 04/15/18 04:15 04/15/18 08:57 (D50w (Vial) Inj) 50 ml UNSCH PRN IV PUSH 04/15/18 05:00 (Glucagon Inj) 1 mg UNSCH PRN OTHER 04/15/18 05:00 (NovoLIN R SUPPLEMENTAL SCALE) 1 ACHS SLIDING SCALE SQ 04/15/18 08:00 Sodium Bicarbonate 150 meq/Dextrose 1,150 ml @ 75 mls/hr [id number] IV 04/15/18 05:00 04/15/18 05:34 Midazolam HCl 50 ml @ 2 mls/hr TITRATE PRN IV 04/15/18 08:15 04/15/18 08:57 Vasopressin 40 units/Sodium Chloride 100 ml @ 6 mls/hr [id number] IV 04/15/18 08:30 04/15/18 08:55 Family History Patient was born in [place]. He is single. Substance Use Tobacco: Alcohol: Prescription med abuse: Illicits: Psychosocial History Patient is originally from [place], [place]. He was Mcbride Acted on 02/26/2018 secondary to self neglecting behavior and disorganization. Patient was homeless at that time; he has been living at [facility] since being discharged on 03/13/2018. . . Spiritual/Cultural Factors Unknown at this time. . Ethical and Legal Issues No known ethical or legal issues at this time. Physical Exam Vital Signs Date Time Temp Pulse Resp B/P (MAP) Pulse Ox O2 Delivery O2 Flow Rate FiO2 04/15/18 09:55 100 40 04/15/18 08:57 74 99/53 04/15/18 08:57 74 95/52 04/15/18 08:55 74 102/55 04/15/18 08:21 100 50 04/15/18 06:24 04/15/18 06:10 96.1 90 14 117/73 (88) 98 04/15/18 06:01 99 50 04/15/18 05:48 100 100 04/15/18 05:48 100 50 04/15/18 05:48 82 26 98 Ventilator 60 136/71 (92) 04/15/18 05:18 83 23 98 Ventilator 60 121/59 (79) 04/15/18 05:05 82 28 99 Ventilator 60 119/55 (76) 04/15/18 04:46 81 27 97 Ventilator 60 114/55 (74) 04/15/18 04:35 78 20 95 Ventilator 70 114/51 (72) 04/15/18 04:30 79 18 95 Ventilator 70 80/50 (60) 04/15/18 04:12 77 30 97 Ventilator 91/50 (64) 04/15/18 03:30 78 95/49 (64) 04/15/18 03:18 72 28 83/44 (57) 97 Ventilator 70 04/15/18 03:13 71 78/42 04/15/18 03:12 71 30 79/44 (56) 97 Ventilator 70 04/15/18 03:09 71 31 89/44 (59) 99 Ventilator 70 04/15/18 03:02 72 30 86/46 (59) 98 Ventilator 70 04/15/18 03:01 73 86/46 04/15/18 02:57 73 29 100/47 (64) 98 Ventilator 70 04/15/18 02:47 76 30 148/56 (86) 100 Ventilator 70 04/15/18 02:14 79 24 99/66 (77) 100 Ventilator 100 04/15/18 02:05 100 70 04/15/18 02:03 82 24 92/59 (70) 99 Ventilator 100 04/15/18 01:51 84 22 92/58 (69) 99 Ventilator 100 04/15/18 01:44 99.4 84 21 91/58 (69) 100 Ventilator 100 04/15/18 01:40 100 04/15/18 01:30 85 14 109/72 (84) 98 04/15/18 01:20 98 100 . 04/15/18 04/16/18 19:00 07:00 Intake Total 190 ml Output Total 0 ml Balance 190 ml Intake IV Total 190 ml Output Urine Total 0 ml . Exam CONSTITUTIONAL/GENERAL: This is an elderly, male patient currently intubated on mechanical ventilation. TUBES/LINES/DRAINS: CVL, PIV x 3, horton, ETT, arterial line SKIN: Jaundice. Ecchymoses on upper extremities. Wound on left lower extremity skin temperature appropriate. Not diaphoretic. Chronic stasis changes over bilateral lower extremities HEAD: Atraumatic. Normocephalic. EYES: Pupils round and reactive, sluggish. No injection or drainage. ENT: Nose without bleeding or purulent drainage. Unable to visualize throat secondary to tubes. NECK: Trachea midline. Supple, nontender. No palpable thyroid enlargement or nodularity. CARDIOVASCULAR: Regular rate and rhythm without murmurs, gallops, or rubs. No JVD. Peripheral pulses symmetric. RESPIRATORY/CHEST: Intubated on mechanical ventilation. Coarse air exchange. GASTROINTESTINAL: Abdomen soft, non-tender, nondistended. No guarding. Bowel sounds present. GENITOURINARY: Without palpable bladder distension. Horton catheter in place. MUSCULOSKELETAL: Extremities without clubbing, cyanosis, or edema. No mottling or clubbing. LYMPHATICS: No palpable cervical or supraclavicular adenopathy. NEUROLOGICAL: Sedated. Unresponsive. Does not withdraw to noxious stimuli. PSYCHIATRIC: Unable to assess given current clinical condition. . Diagnostic Tests Laboratory Laboratory Tests Test 04/15/18 01:35 04/15/18 02:05 04/15/18 02:30 04/15/18 03:00 White Blood Count 7.5 TH/MM3 (4.0-11.0) Red Blood Count 3.27 MIL/MM3 (4.50-5.90) Hemoglobin 10.0 GM/DL (13.0-17.0) Hematocrit 33.6 % (39.0-51.0) Mean Corpuscular Volume 102.8 FL (80.0-100.0) Mean Corpuscular Hemoglobin 30.7 PG (27.0-34.0) Mean Corpuscular Hemoglobin Concent 29.9 % (32.0-36.0) Red Cell Distribution Width 18.2 % (11.6-17.2) Platelet Count 120 TH/MM3 (150-450) Mean Platelet Volume 9.4 FL (7.0-11.0) Neutrophils (%) (Auto) 80.4 % (16.0-70.0) Lymphocytes (%) (Auto) 11.9 % (9.0-44.0) Monocytes (%) (Auto) 7.0 % (0.0-8.0) Eosinophils (%) (Auto) 0.2 % (0.0-4.0) Basophils (%) (Auto) 0.5 % (0.0-2.0) Neutrophils # (Auto) 6.1 TH/MM3 (1.8-7.7) Lymphocytes # (Auto) 0.9 TH/MM3 (1.0-4.8) Monocytes # (Auto) 0.5 TH/MM3 (0-0.9) Eosinophils # (Auto) 0.0 TH/MM3 (0-0.4) Basophils # (Auto) 0.0 TH/MM3 (0-0.2) CBC Comment AUTO DIFF Differential Total Cells Counted 100 Neutrophils % (Manual) 44 % (16-70) Band Neutrophils % 37 % (0-6) Lymphocytes % 10 % (9-44) Monocytes % 4 % (0-8) Neutrophils # (Manual) 6.5 TH/MM3 (1.8-7.7) Metamyelocytes 4 % (0-1) Myelocytes 1 % (0-0) Differential Comment FINAL DIFF MANUAL Platelet Estimate LOW (NORMAL) Platelet Morphology Comment ENLARGED (NORMAL) Prothrombin Time 25.5 SEC (9.8-11.6) Prothromb Time International Ratio 2.5 RATIO Activated Partial Thromboplast Time 61.2 SEC (24.3-30.1) Lactic Acid Level 11.9 mmol/L (0.4-2.0) Blood Gas Puncture Site RT FEMORAL RT FEMORAL Blood Gas Patient Temperature 98.6 98.6 Blood Gas HCO3 9 mmol/L (22-26) 8 mmol/L (22-26) Blood Gas Base Excess -20.3 mmol/L (-2-2) -19.1 mmol/L (-2-2) Blood Gas Oxygen Saturation 97 % (90-100) 97 % (90-100) Arterial Blood pH 7.01 (7.380-7.420) 7.12 (7.380-7.420) Arterial Blood Partial Pressure CO2 35 mmHg (38-42) 27 mmHg (38-42) Arterial Blood Partial Pressure O2 206 mmHG (61-120) 183 mmHG (61-120) Arterial Blood Oxygen Content 14.4 Vol % (12.0-20.0) 13.8 Vol % (12.0-20.0) Arterial Blood Carboxyhemoglobin 0.2 % (0-4) 0.6 % (0-4) Arterial Blood Methemoglobin 0.5 % (0-2) 0.7 % (0-2) Blood Gas Hemoglobin 10.2 G/DL (12.0-16.0) 9.9 G/DL (12.0-16.0) Oxygen Delivery Device VENTILATOR VENTILATOR Blood Gas Ventilator Setting Blood Gas Inspired Oxygen 100 % 70 % Urine Color Kristy (YELLW/STRAW) Urine Turbidity TURBID (CLEAR) Urine pH 5.0 (5.0-8.5) Urine Specific [place] 1.024 (1.002-1.035) Urine Protein >=500 mg/dL (NEG-TRACE) Urine Glucose (UA) NEG mg/dL (NEG) Urine Ketones NEG mg/dL (NEG) Urine Occult Blood MOD (NEG) Urine Nitrite NEG (NEG) Urine Bilirubin NEG (NEG) Urine Urobilinogen 4.0 OR GREATER mg/dL (LESS Urine Leukocyte Esterase NEG (NEG) Urine RBC 56 /hpf (0-3) Urine WBC 25 /hpf (0-5) Urine Squamous Epithelial Cells 2 /hpf (0-5) Urine Bacteria MANY /hpf (NONE) Urine Hyaline Casts 32 /lpf (RARE) Urine Granular Casts 25 /lpf (NONE) Urine Mucus FEW /lpf (OCC) Urine Sperm RARE (NONE) Microscopic Urinalysis Comment CATH-CULTURE IND Urine Opiates Screen NEG (NEG) Urine Barbiturates Screen NEG (NEG) Urine Amphetamines Screen NEG (NEG) Urine Benzodiazepines Screen NEG (NEG) Urine Cocaine Screen NEG (NEG) Urine Cannabinoids Screen NEG (NEG) Test 04/15/18 04:15 04/15/18 04:17 04/15/18 06:17 04/15/18 09:02 Lactic Acid Level 12.6 mmol/L (0.4-2.0) Blood Urea Nitrogen 25 MG/DL (7-18) Creatinine 1.63 MG/DL (0.60-1.30) Random Glucose 288 MG/DL (74-106) Total Protein 4.4 GM/DL (6.4-8.2) Albumin 1.9 GM/DL (3.4-5.0) Calcium Level 6.3 MG/DL (8.5-10.1) Phosphorus Level 7.2 MG/DL (2.5-4.9) Magnesium Level 2.2 MG/DL (1.5-2.5) Alkaline Phosphatase 240 U/L (45-117) Aspartate Amino Transf (AST/SGOT) 7768 U/L (15-37) Alanine Aminotransferase (ALT/SGPT) 3281 U/L (12-78) Total Bilirubin 1.4 MG/DL (0.2-1.0) Sodium Level 138 MEQ/L (136-145) Potassium Level 5.6 MEQ/L (3.5-5.1) Chloride Level 107 MEQ/L (98-107) Carbon Dioxide Level 10.0 MEQ/L (21.0-32.0) Anion Gap 21 MEQ/L (5-15) Estimat Glomerular Filtration Rate 41 ML/MIN (>89) Protein Corrected Calcium 7.6 MG/DL (8.5-10.1) Ammonia 77 MCMOL/L (11-32) Troponin I 0.51 NG/ML (0.02-0.05) Blood Gas Puncture Site ART LINE ART LINE Blood Gas Patient Temperature 98.6 98.6 Blood Gas HCO3 10 mmol/L (22-26) 16 mmol/L (22-26) Blood Gas Base Excess -18.2 mmol/L (-2-2) -9.7 mmol/L (-2-2) Blood Gas Oxygen Saturation 95 % (90-100) 96 % (90-100) Arterial Blood pH 7.10 (7.380-7.420) 7.25 (7.380-7.420) Arterial Blood Partial Pressure CO2 32 mmHg (38-42) 39 mmHg (38-42) Arterial Blood Partial Pressure O2 137 mmHg (61-120) 136 mmHg (61-120) Arterial Blood Oxygen Content 14.0 Vol % (12.0-20.0) 13.6 Vol % (12.0-20.0) Arterial Blood Carboxyhemoglobin 0.3 % (0-4) 0.6 % (0-4) Arterial Blood Methemoglobin 1.4 % (0-2) 1.2 % (0-2) Blood Gas Hemoglobin 10.3 G/DL (12.0-16.0) 9.8 G/DL (12.0-16.0) Oxygen Delivery Device VENTILATOR VENTILATOR Blood Gas Ventilator Setting PRVC/ AC Blood Gas Inspired Oxygen 50 % 50 % Test 04/15/18 09:36 . Result Diagram: 04/15/18 0135 04/15/18 0417 Microbiology Microbiology Date/Time Source Procedure Growth Status 04/15/18 01:35 Blood Peripheral Aerobic Blood Culture Pending Received 04/15/18 01:35 Blood Peripheral Anaerobic Blood Culture Pending Received 04/15/18 01:20 Blood Peripheral Aerobic Blood Culture Pending Received 04/15/18 01:20 Blood Peripheral Anaerobic Blood Culture Pending Received 04/15/18 02:30 Urine Catheterized Urine Urine Culture Pending Received . Imaging Last [address] 04/15/18 0000 Signed Impressions: CONCLUSION: 1. Enlargement of the ventricles and mild dilatation of the sulci. This could be related to normal pressure hydrocephalus given the ventricles are dilated ou t of proportion to the sulcal widening. 2. Decreased density in the periventricular white matter. This is most promine nt in the right frontal white matter 3. No areas of definite hemorrhage or mass effect are seen. Chest X-Ray 04/15/18 0000 Signed Impressions: CONCLUSION: ET tube in good position. NG tube with tip in the distal esophagus. This should be advanced. Linear atelectasis or consolidation medial left base. . Procedures 04/15/2018: Intubation (en route) 04/15/2018: NGT placed Patient/Family Conference Present at Family Conference: Phone calls placed to patient's niece 2. Messages left with palliative care contact information; awaiting return phone call. . Family Conference Location: Telephone Issues Discussed: * Palliative care role, purpose, approach * Palliative care contact information provided . Assessment and Plan Disease Oriented Problem List: (1) Cardiac arrest (2) Major neurocognitive disorder due to Alzheimer's disease, probable, without behavioral disturbance (3) Acute renal failure (4) CAD (coronary artery disease) (5) Elevated bilirubin Symptom Scale: (1) Pain 0-10 Scale: Unable to quantify Pertinent Non-Medical Issues Psychosocial:Patient is originally from [place], [place]. He was Mcbride Acted on 02/26/2018 secondary to self neglecting behavior and disorganization. Patient was homeless at that time; he has been living at [facility] since being discharged on 03/13/2018. Spiritual: Unknown at this time. Legal: Per [place] statutes, in the absence of written advanced directives healthcare proxy decision making would fall to the patient's niece. Ethical issues impacting care: No known ethical issues impacting care at this time. . Important Contacts Kathryn Manriquez, niece: [phone] . Prognosis 77-year-old male status post cardiac arrest who was started on hypothermia protocol; now with multisystem organ dysfunction. Multisystem organ dysfunction. Overall prognosis is poor. . Code Status: Full Code Plan * FULL CODE * Decision-making. Patient currently does not have capacity for medical decision -making. He has a niece (Kathryn Manriquez) who, per review of notes, had previously stated she did not wish to act in the role as the healthcare proxy decision-maker, however nurse (Josr) has been getting consents for treatment from her today. * Attempt to reach the patient's niece via telephone x 2 today. Palliative Care contact information was provided; awaiting return phone call. * Discussed patient with RN (Josr). * Symptom management-pain: Multifactoral. Status post CPR 2; suspected infection, poor circulation, intubation, invasive lines, immobility. Currently sedated on fentanyl and midazolam, PRN morphine is available but has not been required. * Palliative care will continue to follow this patient throughout his hospitalization to establish trust, assist with symptom management and clarification of medical treatment goals. Thank you for the opportunity to participate in the care of Mr. Fountain. . Attestation To help prompt me to consider important information that might be impacting today's encounter and assessment, information from prior notes written by myself or my colleagues may have been "brought forward" into today's note. My signature on this note, however, is an attestation that I personally performed the exam, history, and/or decision-making noted today, and, unless otherwise indicated, the interactions with patient, family, and staff as well as the review of records all occurred today. I also attest that the listed assessment and stated plan reflect my best clinical judgment today based on the combination of historical information, prior notes, and today's exam/ interactions. When time spent is documented, it refers only to time spent today by the signer, or if indicated, combined time spent today by collaborating physician/nurse practitioner. . Winifred Freeman Apr 15, 2018 11:42
[2018-04-15] MEDS: QUEtiapine FUMARATE 25 MG TAB PO SCH ×2 (12:21→17:41)
[2018-04-15 12:59] LABS: AUTOMATED NEUTROPHIL # 8.5 TH/MM3 (1.8-7.7); BASOPHIL % 0.3 % (0.0-2.0); HEMATOCRIT 30.8 % (39.0-51.0); HEMOGLOBIN 9.5 GM/DL (13.0-17.0); LYMPH % 3.2 % (9.0-44.0); LYMPHOCYTE # 0.3 TH/MM3 (1.0-4.8); MEAN CELL VOLUME 96.7 FL (80.0-100.0); MEAN CORPUSCULAR HEMOGLOBIN 29.8 PG (27.0-34.0); MEAN CORPUSCULAR HGB CONC 30.8 % (32.0-36.0); MEAN PLATELET VOLUME 9.3 FL (7.0-11.0); MONO % 6.4 % (0.0-8.0); MONOCYTE # 0.6 TH/MM3 (0-0.9); NEUT % 90.1 % (16.0-70.0); PLATELET COUNT 114 TH/MM3 (150-450); RED BLOOD COUNT 3.18 MIL/MM3 (4.50-5.90); RED CELL DISTRIBUTION WIDTH 17.3 % (11.6-17.2); WHITE BLOOD COUNT 9.5 TH/MM3 (4.0-11.0)
[2018-04-15 13:16] LABS: INTERNATIONAL NORMALIZED RATIO 3.9 RATIO; PROTHROMBIN TIME - PATIENT 39.4 SEC (9.8-11.6)
[2018-04-15] MEDS ORDERED: SODIUM CHLOR 0.9% 250 ML INJ 250 ML IV ONE (13:30)
[2018-04-15 13:36] LABS: BANDS 20 % (0-6); LYMPHOCYTES 6 % (9-44); METAMYELOCYTES 1 % (0-1); MONOCYTES 5 % (0-8); NEUTROPHIL # MANUAL DIFF 8.5 TH/MM3 (1.8-7.7); POLYS (SEG NEUTROPHILS) 68 % (16-70)
[2018-04-15 13:37] LABS: OVALOCYTES 1+ (NORMAL)
[2018-04-15 13:51] LABS: ALBUMIN 2.2 GM/DL (3.4-5.0); CALCIUM 6.6 MG/DL (8.5-10.1); CREATININE 2.06 MG/DL (0.60-1.30)
--- NOTE | 2018-04-15 13:56 | HHI.CCPN ---
Subjective Remarks/Hospital Course 77-year-old man presents emergency department from nursing facility following cardiac arrest. Patient was reportedly normal an hour before EMS was called, with a medical check on again he was unresponsive. EMS arrived to find CPR in progress. Initial rhythm of PEA, he has received 2 cycles of CPR and 2 doses of epinephrine with return of spontaneous circulation in route. Then lost pulses again and PEA arrest, responded again to epinephrine. He was intubated. No other history is available. 04/15: Patient remains very critically ill. This morning due to increased pressor requirements patient was started on vasopressin in addition to norepinephrine. He is currently undergoing hypothermia protocol. Continuous oozing from cooling catheter site. Currently on norepinephrine at 12 micrograms per minute and vasopressin at 0.04. Urine output is low. Refractory metabolic acidosis requiring additional bicarb pushes this morning and continues bicarb infusion. He sedated with midazolam and fentanyl infusions. Objective Vital Signs Date Time Temp Pulse Resp B/P (MAP) Pulse Ox O2 Delivery O2 Flow Rate FiO2 04/15/18 13:10 100 40 04/15/18 08:57 74 99/53 04/15/18 06:10 96.1 14 04/15/18 05:48 Ventilator Intake and Output 04/15/18 04/15/18 04/16/18 08:00 16:00 00:00 Intake Total 1350 ml 190 ml Output Total 0 ml 0 ml Balance 1350 ml 190 ml Result Diagram: 04/15/18 1230 04/15/18 0417 Other Results Laboratory Tests Test 04/15/18 02:05 04/15/18 03:00 04/15/18 06:17 04/15/18 09:02 Blood Gas Puncture Site RT FEMORAL RT FEMORAL ART LINE ART LINE Blood Gas Patient Temperature 98.6 98.6 98.6 98.6 Blood Gas HCO3 9 mmol/L (22-26) 8 mmol/L (22-26) 10 mmol/L (22-26) 16 mmol/L (22-26) Blood Gas Base Excess -20.3 mmol/L (-2-2) -19.1 mmol/L (-2-2) -18.2 mmol/L (-2-2) -9.7 mmol/L (-2-2) Blood Gas Oxygen Saturation 97 % (90-100) 97 % (90-100) 95 % (90-100) 96 % ( 90-100) Arterial Blood pH 7.01 (7.380-7.420) 7.12 (7.380-7.420) 7.10 (7.380-7.420) 7.25 (7.380-7.420) Arterial Blood Partial Pressure CO2 35 mmHg (38-42) 27 mmHg (38-42) 32 mmHg (38-42) 39 mmHg (38-42) Arterial Blood Partial Pressure O2 206 mmHG (61-120) 183 mmHG (61-120) 137 mmHg (61-120) 136 mmHg (61-120) Arterial Blood Oxygen Content 14.4 Vol % (12.0-20.0) 13.8 Vol % (12.0-20.0) 14.0 Vol % (12.0-20.0) 13.6 Vol % (12.0-20.0) Arterial Blood Carboxyhemoglobin 0.2 % (0-4) 0.6 % (0-4) 0.3 % (0-4) 0.6 % (0-4) Arterial Blood Methemoglobin 0.5 % (0-2) 0.7 % (0-2) 1.4 % (0-2) 1.2 % (0-2) Blood Gas Hemoglobin 10.2 G/DL (12.0-16.0) 9.9 G/DL (12.0-16.0) 10.3 G/DL (12.0-16.0) 9.8 G/DL (12.0-16.0) Oxygen Delivery Device VENTILATOR VENTILATOR VENTILATOR VENTILATOR Blood Gas Ventilator Setting PRVC/ AC Blood Gas Inspired Oxygen 100 % 70 % 50 % 50 % Imaging Last 24 hours Impressions Chest X-Ray 04/15/18 0000 Signed Impressions: CONCLUSION: ET tube in good position. NG tube with tip in the distal esophagus. This should be advanced. Linear atelectasis or consolidation medial left base. Objective Remarks GENERAL: Elderly gentleman, intubated and sedated, unresponsive, ill-appearing SKIN: Chronic stasis changes over bilateral lower extremities HEAD: Normocephalic. Orally intubated EYES: Pupils are equal, small, very sluggishly reactive. Clear are anicteric. NECK: Supple, no rigidity. Neck vein distention appreciated. CARDIOVASCULAR: Regular heart sounds, no murmurs. RESPIRATORY: Coarse breath sounds bilateral. Good air entry. No wheezes. GASTROINTESTINAL: Abdomen soft, non-tender, nondistended. Bowel sounds are present. MUSCULOSKELETAL: No cyanosis, or edema. NEURO EXAM: Sedated and intubated. Unresponsive. No grimacing to pain. Pupils are equal, small and very sluggishly reactive. Patient is overbreathing the ventilator. No cough, no corneal. A/P Assessment and Plan 1. Cardiac arrest -started on hypothermia protocol 2. Acute respiratory failure 3. Circulatory shock 4. Acute kidney injury with oliguria 5. Shock liver 6. Severe lactic/metabolic acidosis 7. Hyperkalemia 8. Coagulopathy 9. Hyperammonemia 10. Non-STEMI -with mild troponin elevation 1. Continue PRVC current ventilator settings 520/24/40% with a PEEP of 5. Last blood gas 7.3/28.7/171/14. Patient is synchronized with the ventilator, no auto PEEP, PIP is 23 2. Vent bundle and bronchodilators 3. Continue norepinephrine and vasopressin to keep MAP above 65 4. Continue bicarb infusion 5. Echocardiogram 6. Repeat potassium. If potassium remains elevated we will need nephrology consult and possible CRRT 7. Serial lactic acid 8. Transfuse 10 units cryo and 4 units FFP due to continuous bleeding from cooling catheter site 9. On hypothermia. Labs per protocol 10. Start vancomycin and Zosyn pending cultures 11. Send sputum culture 12. Start stress dose steroids 13. Mechanical DVT prophylaxis with SCDs 14. GI prophylaxis with famotidine I spent an additional 45 minutes of critical care time, excluding procedures, managing ventilator, pressors, severe refractory acidosis, reviewing data and ordering investigations, discussing with nursing staff. No family present at bedside. Palliative care following -appreciate their help. Cal Freitas MD Apr 15, 2018 13:56
[2018-04-15 14:01] LABS: BICARBONATE 17.8 MEQ/L (21.0-32.0); CALCIUM-PROTEIN CORRECTED 7.9 MG/DL (8.5-10.1); TOTAL BILIRUBIN ADULT 2.7 MG/DL (0.2-1.0); TOTAL PROTEIN 4.6 GM/DL (6.4-8.2)
--- NOTE | 2018-04-15 14:09 | PD.CONS ---
HPI Service Nephrology Consult Requested By Dr. Worrell Reason for Consult Acute renal failure Primary Care Physician Unknown History of Present Illness Patient is a 77-year-old male with history of hypertension who had cardiac arrest and was brought in resuscitation, there is approximately 1 hour of time Before he was seen well, he was down for unknown amount of time and CPR was done and he responded has been intubated, he is in acute renal failure unresponsive. Creatinine is rising, he remains anuric, on ventilator Review of Systems ROS Limitations: Clinical Condition Past Family Social History Allergies: Coded Allergies: No Known Allergies (Unverified , 04/15/18) Past Medical History Dementia, no next of kin ASCVD CHF Hypertension Peripheral arterial disease Past Surgical History Not available Reported Medications Reported Meds & Active Scripts Active Seroquel (Quetiapine Fumarate) 50 Mg Tab 50 Mg PO DAILY@1200,[address] (Aspirin) 81 Mg Tabdr 81 Mg PO DAILY Carvedilol 3.125 Mg Tab 3.125 Mg PO BID Reported Tylenol (Acetaminophen) 325 Mg Tab 325 Mg PO BID Hydrochlorothiazide 12.5 Mg Cap 12.5 Mg PO DAILY Aricept (Donepezil) 23 Mg Tab 10 Mg PO HS Do not split, crushed or chewed. Active Ordered Medications Current Medications Medications (Trade) Dose Ordered Sig/Aure Route Start Time Stop Time Status Last Admin Fentanyl Citrate 250 ml @ 5 mls/hr TITRATE PRN IV 04/15/18 03:30 04/15/18 03:50 (Ecotrin Ec) 81 mg DAILY PO 04/15/18 09:00 04/15/18 08:58 (SEROquel) 50 mg DAILY@1200,1800 PO 04/15/18 12:00 04/15/18 12:21 (NS Flush) 2 ml UNSCH PRN IV FLUSH 04/15/18 04:00 (NS Flush) 2 ml BID IV FLUSH 04/15/18 09:00 04/15/18 09:01 (Tylenol) 650 mg Q6H PRN PO 04/15/18 04:00 (Morphine Inj) 2 mg Q2H PRN IV PUSH 04/15/18 04:00 (Pepcid Inj) 20 mg Q12HR IV PUSH 04/15/18 09:00 04/15/18 08:58 (Ativan Inj) 1 mg Q1H PRN IV PUSH 04/15/18 04:00 (Tears Naturale Opth Soln) 1 drop TID EACH EYE 04/15/18 09:00 (Zofran Odt) 4 mg Q6H PRN PO 04/15/18 04:00 (Duoneb Neb) 1 ampule Q2HR NEB PRN INH 04/15/18 04:00 ([facility] [place] Nursing Information) 1 [id number] XX 04/15/18 04:00 (Chlorhexidine 2% Cloth) 3 pack Taper DAILY@04 TOP 04/15/18 04:00 04/11/19 03:59 (Chlorhexidine 2% Cloth) 3 pack UNSCH PRN TOP 04/15/18 04:00 (Mary-Colace) 1 tab BID PO 04/15/18 09:00 04/15/18 08:58 (Milk Of Magnesia Liq) 30 ml Q12H PRN PO 04/15/18 04:00 (Senokot) 17.2 mg Q12H PRN PO 04/15/18 04:00 (Dulcolax Supp) 10 mg DAILY PRN RECTAL 04/15/18 04:00 (Lactulose Liq) 30 ml DAILY PRN PO 04/15/18 04:00 (Peridex 0.12% Liq) 15 ml BID@08,20 MT 04/15/18 08:00 04/15/18 09:01 Propofol 100 ml @ 2.1 mls/hr TITRATE PRN IV 04/15/18 04:00 (Ativan Inj) 1 mg Q1H PRN IV PUSH 04/15/18 04:00 (Demerol Inj) 25 mg Q2H PRN IV PUSH 04/15/18 04:00 (Lacrilube Opht Oint) 1 applic Q4H PRN EACH EYE 04/15/18 04:00 Miscellaneous Information 0 ml @ 0 mls/hr UNSCH IV 04/15/18 04:00 Potassium Chloride 100 ml @ 50 mls/hr Q2H PRN IV 04/15/18 04:00 Potassium Chloride 100 ml @ 50 mls/hr Q2H PRN IV 04/15/18 04:00 (K-Lyte Cl Eff) 50 meq UNSCH PRN PO 04/15/18 04:00 Potassium Chloride 100 ml @ 25 mls/hr UNSCH PRN IV 04/15/18 04:00 Potassium Chloride 100 ml @ 50 mls/hr Q2H PRN IV 04/15/18 04:00 Magnesium Sulfate 4 gm/Sodium Chloride 100 ml @ 50 mls/hr UNSCH PRN IV 04/15/18 04:00 (Mag-Ox) 800 mg UNSCH PRN PO 04/15/18 04:00 Magnesium Sulfate 2 gm/Sodium Chloride 100 ml @ 50 mls/hr UNSCH PRN IV 04/15/18 04:00 (K-Phos) 2,000 mg Q4H PRN PO 04/15/18 04:00 Sodium Phosphate 30 mmol/Sodium Chloride 250 ml @ 42 mls/hr UNSCH PRN IV 04/15/18 04:00 (K-Phos) 2,000 mg UNSCH PRN PO/TUBE 04/15/18 04:00 Potassium Phosphate 30 mmol/ Sodium Chloride 260 ml @ 42 mls/hr UNSCH PRN IV 04/15/18 04:00 (Brethine Inj) 1 mg UNSCH PRN SQ 04/15/18 04:00 Norepinephrine Bitartrate 4 mg/ Sodium Chloride 250 ml @ 7.5 mls/hr TITRATE PRN IV 04/15/18 04:15 04/15/18 08:57 (D50w (Vial) Inj) 50 ml UNSCH PRN IV PUSH 04/15/18 05:00 (Glucagon Inj) 1 mg UNSCH PRN OTHER 04/15/18 05:00 (NovoLIN R SUPPLEMENTAL SCALE) 1 ACHS SLIDING SCALE SQ 04/15/18 08:00 Sodium Bicarbonate 150 meq/Dextrose 1,150 ml @ 75 mls/hr [id number] IV 04/15/18 05:00 04/15/18 05:34 Midazolam HCl 50 ml @ 2 mls/hr TITRATE PRN IV 04/15/18 08:15 04/15/18 08:57 Vasopressin 40 units/Sodium Chloride 100 ml @ 6 mls/hr [id number] IV 04/15/18 08:30 04/15/18 08:55 Sodium Chloride 250 ml @ 15 mls/hr ONCE ONCE IV 04/15/18 13:30 04/16/18 06:09 Family History Not available Social History Not available Physical Exam Vital Signs Vital Signs Date Time Temp Pulse Resp B/P (MAP) Pulse Ox O2 Delivery O2 Flow Rate FiO2 04/15/18 13:10 100 40 04/15/18 09:55 100 40 04/15/18 08:57 74 99/53 04/15/18 08:57 74 95/52 04/15/18 08:55 74 102/55 04/15/18 08:21 100 50 04/15/18 06:24 04/15/18 06:10 96.1 90 14 117/73 (88) 98 04/15/18 06:01 99 50 04/15/18 05:48 100 100 04/15/18 05:48 100 50 04/15/18 05:48 82 26 98 Ventilator 60 136/71 (92) 04/15/18 05:18 83 23 98 Ventilator 60 121/59 (79) 04/15/18 05:05 82 28 99 Ventilator 60 119/55 (76) 04/15/18 04:46 81 27 97 Ventilator 60 114/55 (74) 04/15/18 04:35 78 20 95 Ventilator 70 114/51 (72) 04/15/18 04:30 79 18 95 Ventilator 70 80/50 (60) 04/15/18 04:12 77 30 97 Ventilator 91/50 (64) 04/15/18 03:30 78 95/49 (64) 04/15/18 03:18 72 28 83/44 (57) 97 Ventilator 70 04/15/18 03:13 71 78/42 04/15/18 03:12 71 30 79/44 (56) 97 Ventilator 70 04/15/18 03:09 71 31 89/44 (59) 99 Ventilator 70 04/15/18 03:02 72 30 86/46 (59) 98 Ventilator 70 04/15/18 03:01 73 86/46 04/15/18 02:57 73 29 100/47 (64) 98 Ventilator 70 04/15/18 02:47 76 30 148/56 (86) 100 Ventilator 70 04/15/18 02:14 79 24 99/66 (77) 100 Ventilator 100 04/15/18 02:05 100 70 04/15/18 02:03 82 24 92/59 (70) 99 Ventilator 100 04/15/18 01:51 84 22 92/58 (69) 99 Ventilator 100 04/15/18 01:44 99.4 84 21 91/58 (69) 100 Ventilator 100 04/15/18 01:40 100 04/15/18 01:30 85 14 109/72 (84) 98 04/15/18 01:20 98 100 Physical Exam GENERAL: Sick appearing patient. SKIN: Warm and dry. HEAD: Intubated. EYES: No scleral icterus. No injection or drainage. NECK: Supple, trachea midline. No JVD or lymphadenopathy. CARDIOVASCULAR: Regular rate and rhythm without murmurs, gallops, or rubs. RESPIRATORY: Breath sounds equal bilaterally. No accessory muscle use. GASTROINTESTINAL: Abdomen soft, non-tender, nondistended. EXTREMITIES: No cyanosis, or edema. NEUROLOGICAL: Intubated unresponsive Laboratory Laboratory Tests Test 04/15/18 01:35 04/15/18 02:05 04/15/18 02:30 04/15/18 03:00 White Blood Count 7.5 Red Blood Count 3.27 Hemoglobin 10.0 Hematocrit 33.6 Mean Corpuscular Volume 102.8 Mean Corpuscular Hemoglobin 30.7 Mean Corpuscular Hemoglobin Concent 29.9 Red Cell Distribution Width 18.2 Platelet Count 120 Mean Platelet Volume 9.4 Neutrophils (%) (Auto) 80.4 Lymphocytes (%) (Auto) 11.9 Monocytes (%) (Auto) 7.0 Eosinophils (%) (Auto) 0.2 Basophils (%) (Auto) 0.5 Neutrophils # (Auto) 6.1 Lymphocytes # (Auto) 0.9 Monocytes # (Auto) 0.5 Eosinophils # (Auto) 0.0 Basophils # (Auto) 0.0 CBC Comment AUTO DIFF Differential Total Cells Counted 100 Neutrophils % (Manual) 44 Band Neutrophils % 37 Lymphocytes % 10 Monocytes % 4 Neutrophils # (Manual) 6.5 Metamyelocytes 4 Myelocytes 1 Differential Comment FINAL DIFF MANUAL Platelet Estimate LOW Platelet Morphology Comment ENLARGED Prothrombin Time 25.5 Prothromb Time International Ratio 2.5 Activated Partial Thromboplast Time 61.2 Lactic Acid Level 11.9 Blood Gas Puncture Site RT FEMORAL RT FEMORAL Blood Gas Patient Temperature 98.6 98.6 Blood Gas HCO3 9 8 Blood Gas Base Excess -20.3 -19.1 Blood Gas Oxygen Saturation 97 97 Arterial Blood pH 7.01 7.12 Arterial Blood Partial Pressure CO2 35 27 Arterial Blood Partial Pressure O2 206 183 Arterial Blood Oxygen Content 14.4 13.8 Arterial Blood Carboxyhemoglobin 0.2 0.6 Arterial Blood Methemoglobin 0.5 0.7 Blood Gas Hemoglobin 10.2 9.9 Oxygen Delivery Device VENTILATOR VENTILATOR Blood Gas Ventilator Setting Blood Gas Inspired Oxygen 100 70 Urine Color Kristy Urine Turbidity TURBID Urine pH 5.0 Urine Specific [place] 1.024 Urine Protein >=500 Urine Glucose (UA) NEG Urine Ketones NEG Urine Occult Blood MOD Urine Nitrite NEG Urine Bilirubin NEG Urine Urobilinogen 4.0 OR GREATER Urine Leukocyte Esterase NEG Urine RBC 56 Urine WBC 25 Urine Squamous Epithelial Cells 2 Urine Bacteria MANY Urine Hyaline Casts 32 Urine Granular Casts 25 Urine Mucus FEW Urine Sperm RARE Microscopic Urinalysis Comment CATH-CULTURE IND Urine Opiates Screen NEG Urine Barbiturates Screen NEG Urine Amphetamines Screen NEG Urine Benzodiazepines Screen NEG Urine Cocaine Screen NEG Urine Cannabinoids Screen NEG Test 04/15/18 04:15 04/15/18 04:17 04/15/18 06:17 04/15/18 09:02 Lactic Acid Level 12.6 Blood Urea Nitrogen 25 Creatinine 1.63 Random Glucose 288 Total Protein 4.4 Albumin 1.9 Calcium Level 6.3 Phosphorus Level 7.2 Magnesium Level 2.2 Alkaline Phosphatase 240 Aspartate Amino Transf (AST/SGOT) 7768 Alanine Aminotransferase (ALT/SGPT) 3281 Total Bilirubin 1.4 Sodium Level 138 Potassium Level 5.6 Chloride Level 107 Carbon Dioxide Level 10.0 Anion Gap 21 Estimat Glomerular Filtration Rate 41 Protein Corrected Calcium 7.6 Ammonia 77 Troponin I 0.51 Blood Gas Puncture Site ART LINE ART LINE Blood Gas Patient Temperature 98.6 98.6 Blood Gas HCO3 10 16 Blood Gas Base Excess -18.2 -9.7 Blood Gas Oxygen Saturation 95 96 Arterial Blood pH 7.10 7.25 Arterial Blood Partial Pressure CO2 32 39 Arterial Blood Partial Pressure O2 137 136 Arterial Blood Oxygen Content 14.0 13.6 Arterial Blood Carboxyhemoglobin 0.3 0.6 Arterial Blood Methemoglobin 1.4 1.2 Blood Gas Hemoglobin 10.3 9.8 Oxygen Delivery Device VENTILATOR VENTILATOR Blood Gas Ventilator Setting PRVC/ AC Blood Gas Inspired Oxygen 50 50 Test 04/15/18 09:36 04/15/18 12:30 04/15/18 13:50 Nasal Screen MRSA (PCR) MRSA NOT DETECTED Troponin I 0.96 White Blood Count 9.5 Red Blood Count 3.18 Hemoglobin 9.5 Hematocrit 30.8 Mean Corpuscular Volume 96.7 Mean Corpuscular Hemoglobin 29.8 Mean Corpuscular Hemoglobin Concent 30.8 Red Cell Distribution Width 17.3 Platelet Count 114 Mean Platelet Volume 9.3 Neutrophils (%) (Auto) 90.1 Lymphocytes (%) (Auto) 3.2 Monocytes (%) (Auto) 6.4 Eosinophils (%) (Auto) 0.0 Basophils (%) (Auto) 0.3 Neutrophils # (Auto) 8.5 Lymphocytes # (Auto) 0.3 Monocytes # (Auto) 0.6 Eosinophils # (Auto) 0.0 Basophils # (Auto) 0.0 CBC Comment AUTO DIFF Differential Total Cells Counted 100 Neutrophils % (Manual) 68 Band Neutrophils % 20 Lymphocytes % 6 Monocytes % 5 Neutrophils # (Manual) 8.5 Metamyelocytes 1 Differential Comment FINAL DIFF MANUAL Platelet Estimate LOW Platelet Morphology Comment NORMAL Ovalocytes 1+ Prothrombin Time 39.4 Prothromb Time International Ratio 3.9 Fibrinogen 69 Blood Urea Nitrogen 30 Creatinine 2.06 Random Glucose 175 Albumin 2.2 Calcium Level 6.6 Alkaline Phosphatase 255 Aspartate Amino Transf (AST/SGOT) 57191 Alanine Aminotransferase (ALT/SGPT) 4549 Potassium Level 4.7 Chloride Level 107 Estimat Glomerular Filtration Rate 32 Lactic Acid Level 12.3 Blood Gas Puncture Site ART LINE Blood Gas Patient Temperature 98.6 Blood Gas HCO3 14 Blood Gas Base Excess -11.3 Blood Gas Oxygen Saturation 97 Arterial Blood pH 7.30 Arterial Blood Partial Pressure CO2 29 Arterial Blood Partial Pressure O2 171 Arterial Blood Oxygen Content 12.6 Arterial Blood Carboxyhemoglobin 0.8 Arterial Blood Methemoglobin 1.2 Blood Gas Hemoglobin 8.9 Oxygen Delivery Device VENTILATOR Blood Gas Ventilator Setting Blood Gas Inspired Oxygen 40 Date/Time Source Procedure Growth Status 04/15/18 01:35 Blood Peripheral Aerobic Blood Culture Pending Received 04/15/18 01:35 Blood Peripheral Anaerobic Blood Culture Pending Received 04/15/18 02:30 Urine Catheterized Urine Urine Culture Pending Received Result Diagram: 04/15/18 1230 04/15/18 1230 Imaging Last Impressions Head CT 04/15/18 0000 Signed Impressions: CONCLUSION: 1. Enlargement of the ventricles and mild dilatation of the sulci. This could be related to normal pressure hydrocephalus given the ventricles are dilated ou t of proportion to the sulcal widening. 2. Decreased density in the periventricular white matter. This is most promine nt in the right frontal white matter 3. No areas of definite hemorrhage or mass effect are seen. Chest X-Ray 04/15/18 0000 Signed Impressions: CONCLUSION: ET tube in good position. NG tube with tip in the distal esophagus. This should be advanced. Linear atelectasis or consolidation medial left base. 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
[2018-04-15] MEDS ORDERED: Vancomycin Consult Pharmacy 1 EA OTHER SCH (14:15)
[2018-04-15] MEDS: HYDROCORTISONE SOD SUCCINATE 100 MG VIAL IV PUSH SCH ×3 (15:50→23:06)
[2018-04-15] MEDS: PIPERACIL-TAZO 2.25 GM PREMIX 50 ML IV SCH ×2 (15:54→20:08)
--- NOTE | 2018-04-15 16:37 | ECHRPT ---
Indication: HEART FAILURE CONCLUSIONS Moderately dilated left ventricle. Wall thickness is normal. The left ventricular systolic function is severely reduced with an estimated ejection fraction less than 20%. The right ventricular systoilc function is moderately decreased. The left atrial size is upper limits of normal. Atrial septal aneurysm is present (benign finding). Mitral annular calcification is present. Trace mitral valve regurgitation. Anterior mitral valve leaflet prolapse. Small mobile density attached to the anterior mitral valve leaflet. Aortic valve sclerosis is present. Trace aortic valve regurgitation. There is mild tricuspid valve regurgitation. There is estimated moderate pulmonary hypertension present (65 mmHg). A moderate left sided pleural effusion is noted. BP: / HR: Rhythm: MEASUREMENTS (Male / Female) Normal Values Technical Quality: 2D ECHO LV Diastolic Diameter PLAX 6.2 cm 4.2 - 5.9 / 3.9 - 5.3 cm LV Systolic Diameter PLAX 5.9 cm IVS Diastolic Thickness 0.7 cm 0.6 - 1.0 / 0.6 - 0.9 cm LVPW Diastolic Thickness 0.6 cm 0.6 - 1.0 / 0.6 - 0.9 cm LV Relative Wall Thickness 0.2 RV Internal Dim ED PLAX 2.3 cm M-MODE Aortic Root Diameter MM 3.4 cm AV Cusp Separation MM 2.2 cm DOPPLER Mitral E Point Velocity 50.6 cm/s TR Peak Velocity 371.0 cm/s TR Peak Gradient 55.1 mmHg Right Atrial Pressure 10.0 mmHg Pulmonary Artery Systolic Pressu 65.1 mmHg Right Ventricular Systolic Press 65.1 mmHg FINDINGS LEFT VENTRICLE Moderately dilated left ventricle. Wall thickness is normal. The left ventricular systolic function is severely reduced with an estimated ejection fraction less than 20%. RIGHT VENTRICLE The right ventricular systoilc function is moderately decreased. LEFT ATRIUM The left atrial size is upper limits of normal. ATRIAL SEPTUM Atrial septal aneurysm is present (benign finding). MITRAL VALVE Mitral annular calcification is present. Trace mitral valve regurgitation. Anterior mitral valve leaflet prolapse. Small mobile density attached to the anterior mitral valve leaflet. AORTIC VALVE Aortic valve sclerosis is present. Trace aortic valve regurgitation. TRICUSPID VALVE There is mild tricuspid valve regurgitation. There is estimated moderate pulmonary hypertension present (65 mmHg). PULMONARY VALVE Trivial pulmonary valve regurgitation. PERICARDIUM A moderate left sided pleural effusion is noted. Jose R Forrest MD, FACC (Electronically Signed) Final Date:15 April 2018 16:36
--- NOTE | 2018-04-15 20:16 | PD.PROCEDR ---
Procedure Note Procedure Central line placement A time-out was completed verifying correct patient, procedure, site, positioning , and special equipment if applicable. The patient was placed in a dependent position appropriate for central line placement based on the vein to be cannulated. The patients right groin was prepped and draped in sterile fashion. 1% Lidocaine was used to anesthetize the surrounding skin area. A triple lumen hypothermia catheter was introduced into the the common femoral vein using the Seldinger technique and under ultrasound guidance. The catheter was threaded smoothly over the guide wire and appropriate blood return was obtained. Each lumen of the catheter was evacuated of air and flushed with sterile saline. The catheter was then sutured in place to the skin and a sterile dressing applied. Perfusion to the extremity distal to the point of catheter insertion was checked and found to be adequate. Estimated Blood Loss: 1ml The patient tolerated the procedure well and there were no complications. Brennan Worrell MD Apr 15, 2018 8:16 pm
--- NOTE | 2018-04-15 22:20 | EKG ---
Date Performed: 04/15/2018 Time Performed: 11:06:02 PTAGE: 77 years EKG: Sinus rhythm WITH FIRST DEGREE AV BLOCK MARKED LEFT AXIS DEVIATION MODERATE INTRAVENTRICULAR CONDUCTION DELAY MIN IMAL ST DEPRESSION ABNORMAL QRS-T ANGLE PROLONGED QT INTERVAL ABNORMAL ECG PREVIOUS TRACING : 04/15/2018 01.25 Compared to previous tracing, QTc is longer, ST depression s laterally are more prominent DOCTOR: Shay Reyes Interpretating Date/Time 04/15/2018 22:19:28
[2018-04-15 22:27] LABS: BICARBONATE 12.3 MEQ/L (21.0-32.0); CALCIUM 6.7 MG/DL (8.5-10.1); CREATININE 2.16 MG/DL (0.60-1.30); MAGNESIUM 2.3 MG/DL (1.5-2.5)
[2018-04-15 22:41] LABS: CALCIUM-PROTEIN CORRECTED 7.7 MG/DL (8.5-10.1); TOTAL PROTEIN 5.2 GM/DL (6.4-8.2)
--- NOTE | 2018-04-15 22:59 | EKG ---
Date Performed: 04/15/2018 Time Performed: 01:25:10 PTAGE: 77 years EKG: Sinus rhythm WITH FIRST DEGREE AV BLOCK MARKED LEFT AXIS DEVIATION INTRAVENTRICULAR CONDUCTION DELAY ABNORMAL ECG PREVIOUS TRACING : 02/25/2018 20.11 Since the previous tracing, no significant change noted DOCTOR: Shay Reyes Interpretating Date/Time 04/15/2018 22:58:51
[2018-04-16] VITALS (30 sets, daily range): BP systolic 92–115; BP diastolic 52–73; PULSE 52–67; RESP 0–24; TEMP 93–94.8; O2SAT 74–100
[2018-04-16] MEDS: VASOPRESSIN INJ 40 UNITS in SODIUM CHLORIDE 0.9% INJ 98 ML IV SCH ×3 (00:14→17:19)
[2018-04-16] MEDS: SODIUM BICARBONATE 8.4% INJ 150 MEQ in DEXTROSE 5% IN WATE 1000ML INJ 1,000 ML IV SCH ×4 (00:19→09:30)
[2018-04-16] MEDS: PIPERACIL-TAZO 2.25 GM PREMIX 50 ML IV SCH ×4 (02:05→22:22)
[2018-04-16] MEDS: CHLORHEXIDINE GLUCONATE 2 % 1 PACK (2 CLOTHS) TOP SCH (03:04)
[2018-04-16 04:27] LABS: AUTOMATED NEUTROPHIL # 7.4 TH/MM3 (1.8-7.7); BASOPHIL % 0.1 % (0.0-2.0); EOSINOPHIL # 0.1 TH/MM3 (0-0.4); EOSINOPHIL % 0.9 % (0.0-4.0); HEMATOCRIT 22.8 % (39.0-51.0); HEMOGLOBIN 7.2 GM/DL (13.0-17.0); LYMPH % 5.7 % (9.0-44.0); LYMPHOCYTE # 0.5 TH/MM3 (1.0-4.8); MEAN CELL VOLUME 96.3 FL (80.0-100.0); MEAN CORPUSCULAR HEMOGLOBIN 30.3 PG (27.0-34.0); MEAN CORPUSCULAR HGB CONC 31.5 % (32.0-36.0); MEAN PLATELET VOLUME 9.7 FL (7.0-11.0); MONO % 4.8 % (0.0-8.0); MONOCYTE # 0.4 TH/MM3 (0-0.9); NEUT % 88.5 % (16.0-70.0); PLATELET COUNT 55 TH/MM3 (150-450); RED BLOOD COUNT 2.36 MIL/MM3 (4.50-5.90); RED CELL DISTRIBUTION WIDTH 17.5 % (11.6-17.2); WHITE BLOOD COUNT 8.4 TH/MM3 (4.0-11.0)
[2018-04-16 04:38] LABS: INTERNATIONAL NORMALIZED RATIO 2.3 RATIO; PROTHROMBIN TIME - PATIENT 23.2 SEC (9.8-11.6)
[2018-04-16 05:07] LABS: ALBUMIN 2.4 GM/DL (3.4-5.0); BICARBONATE 14.6 MEQ/L (21.0-32.0); CALCIUM 6.3 MG/DL (8.5-10.1); CREATININE 2.41 MG/DL (0.60-1.30); MAGNESIUM 2.1 MG/DL (1.5-2.5); PHOSPHORUS 7.5 MG/DL (2.5-4.9)
[2018-04-16] MEDS: HYDROCORTISONE SOD SUCCINATE 100 MG VIAL IV PUSH SCH ×4 (05:14→22:23)
[2018-04-16 05:24] LABS: RANDOM VANCOMYCIN 9.9 COMMENT; TOTAL BILIRUBIN ADULT 3.4 MG/DL (0.2-1.0); TOTAL PROTEIN 4.9 GM/DL (6.4-8.2)
[2018-04-16 05:25] LABS: CALCIUM-PROTEIN CORRECTED 7.4 MG/DL (8.5-10.1)
[2018-04-16] MEDS: MIDAZOLAM 50 MG/NS 50 ML DRIP Premix IV PRN (06:42)
[2018-04-16 07:06] LABS: BANDS 34 % (0-6); CORRECTED NUCLEATED RBC 1 /100 WBC (0-0); KERATOCYTES OCC (NORMAL); LYMPHOCYTES 5 % (9-44); MONOCYTES 4 % (0-8); NEUTROPHIL # MANUAL DIFF 7.6 TH/MM3 (1.8-7.7); NUCLEATED RED BLOOD CELL 1 (0-0); OVALOCYTES 1+ (NORMAL); POLYS (SEG NEUTROPHILS) 57 % (16-70)
[2018-04-16 07:07] LABS: ACANTHOCYTES OCC (NORMAL)
[2018-04-16] MEDS: INSULIN NovoLIN REGULAR SUPPLEMENTAL SCALE SQ SCH ×4 (07:28→21:00)
[2018-04-16] MEDS: SODIUM CHLORIDE 0.9% FLUSH 10 ML FLUSH IV FLUSH SCH ×2 (07:28→22:23)
[2018-04-16] MEDS: CHLORHEXIDINE 0.12% (ORAL KIT) 15 ML CUP MT SCH ×2 (07:28→22:23)
[2018-04-16] MEDS: FAMOTIDINE 20 MG/2 ML VIAL IV PUSH SCH ×2 (07:28→22:22)
[2018-04-16] MEDS: ARTIFICIAL TEARS OPTH SOLN 15 ML BTL EACH EYE SCH ×3 (07:28→18:30)
[2018-04-16] MEDS: ASPIRIN EC 81 MG TABEC PO SCH (07:29)
[2018-04-16] MEDS: DOCUSATE SODIUM 50 MG/SENNA 8.6 MG TAB PO SCH ×2 (07:29→22:22)
--- NOTE | 2018-04-16 08:50 | HHI.CCPN ---
Subjective Remarks/Hospital Course 77-year-old man presents emergency department from nursing facility following cardiac arrest. Patient was reportedly normal an hour before EMS was called, with a medical check on again he was unresponsive. EMS arrived to find CPR in progress. Initial rhythm of PEA, he has received 2 cycles of CPR and 2 doses of epinephrine with return of spontaneous circulation in route. Then lost pulses again and PEA arrest, responded again to epinephrine. He was intubated. No other history is available. 04/15: Patient remains very critically ill. This morning due to increased pressor requirements patient was started on vasopressin in addition to norepinephrine. He is currently undergoing hypothermia protocol. Continuous oozing from cooling catheter site. Currently on norepinephrine at 12 micrograms per minute and vasopressin at 0.04. Urine output is low. Refractory metabolic acidosis requiring additional bicarb pushes this morning and continues bicarb infusion. He sedated with midazolam and fentanyl infusions. 04/16: Patient continues on vasopressors to maintain MAP greater than 65, echo revealed EF 20%. Rewarming initiated this a.m.. Severe acidosis worsening. Noted ischemic changes bilateral lower extremities no pulses palpated or dopplerable DP, PT, popliteal. Venous and arterial Doppler studies in progress. Patient noted to be in DIC yesterday ,received cryoprecipitate. Fibrinogen level pending. Hemoglobin noted to be 7.2, plan for transfusion packed red blood cells. Cardiology also has been consulted Objective Vital Signs Date Time Temp Pulse Resp B/P (MAP) Pulse Ox O2 Delivery O2 Flow Rate FiO2 04/16/18 06:00 93.9 57 24 102/67 (79) 97 107/55 (72) 04/16/18 03:30 35 04/15/18 05:48 Ventilator Intake and Output 04/16/18 04/16/18 04/17/18 08:00 16:00 00:00 Intake Total 1400 ml Output Total 10 ml Balance 1390 ml Result Diagram: 04/16/18 0400 04/16/18 0400 Other Results Last Impressions Head CT 04/15/18 0000 Signed Impressions: CONCLUSION: 1. Enlargement of the ventricles and mild dilatation of the sulci. This could be related to normal pressure hydrocephalus given the ventricles are dilated ou t of proportion to the sulcal widening. 2. Decreased density in the periventricular white matter. This is most promine nt in the right frontal white matter 3. No areas of definite hemorrhage or mass effect are seen. Chest X-Ray 04/15/18 0000 Signed Impressions: CONCLUSION: ET tube in good position. NG tube with tip in the distal esophagus. This should be advanced. Linear atelectasis or consolidation medial left base. Laboratory Tests Test 04/15/18 09:02 04/15/18 13:50 04/15/18 20:00 04/16/18 06:19 Blood Gas Puncture Site ART LINE ART LINE ART LINE ART LINE Blood Gas Patient Temperature 98.6 98.6 98.6 98.6 Blood Gas HCO3 16 mmol/L (22-26) 14 mmol/L (22-26) 12 mmol/L (22-26) 14 mmol/L (22-26) Blood Gas Base Excess -9.7 mmol/L (-2-2) -11.3 mmol/L (-2-2) -13.1 mmol/L (-2-2) -10.9 mmol/L (-2-2) Blood Gas Oxygen Saturation 96 % (90-100) 97 % (90-100) 96 % (90-100) 97 % ( 90-100) Arterial Blood pH 7.25 (7.380-7.420) 7.30 (7.380-7.420) 7.29 (7.380-7.420) 7.33 (7.380-7.420) Arterial Blood Partial Pressure CO2 39 mmHg (38-42) 29 mmHg (38-42) 26 mmHg (38-42) 27 mmHg (38-42) Arterial Blood Partial Pressure O2 136 mmHg (61-120) 171 mmHg (61-120) 152 mmHg (61-120) 174 mmHg (61-120) Arterial Blood Oxygen Content 13.6 Vol % (12.0-20.0) 12.6 Vol % (12.0-20.0) 11.0 Vol % (12.0-20.0) 9.7 Vol % (12.0-20.0) Arterial Blood Carboxyhemoglobin 0.6 % (0-4) 0.8 % (0-4) 1.0 % (0-4) 1.1 % (0-4) Arterial Blood Methemoglobin 1.2 % (0-2) 1.2 % (0-2) 1.5 % (0-2) 1.3 % (0-2) Blood Gas Hemoglobin 9.8 G/DL (12.0-16.0) 8.9 G/DL (12.0-16.0) 7.9 G/DL (12.0-16.0) 6.8 G/DL (12.0-16.0) Oxygen Delivery Device VENTILATOR VENTILATOR VENTILATOR VENTILATOR Blood Gas Ventilator Setting PRVC/AC PRVC/ AC Blood Gas Inspired Oxygen 50 % 40 % 35 % 35 % Imaging Last 24 hours Impressions Chest X-Ray 04/15/18 0000 Signed Impressions: CONCLUSION: ET tube in good position. NG tube with tip in the distal esophagus. This should be advanced. Linear atelectasis or consolidation medial left base. Objective Remarks GENERAL: This is a critically ill-appearing elderly gentleman, intubated and sedated, unresponsive SKIN: Chronic stasis changes over bilateral lower extremities, no pulses DP, PT , popliteal B/L lower extremities. Scrotal edema with discoloration. Multiple sites of ecchymosis, B/L upper extremities. B/L lower extremities cool to touch HEAD: Normocephalic. Orally intubated EYES: Pupils are equal, small, very sluggishly reactive. Clear are anicteric. NECK: Supple, no rigidity. No JVD CARDIOVASCULAR: Regular heart sounds, no murmurs. RESPIRATORY: Coarse breath sounds bilateral. Good air entry. No wheezes. GASTROINTESTINAL: Abdomen soft, non-tender, nondistended. Bowel sounds are present. MUSCULOSKELETAL: No cyanosis, or edema. NEURO EXAM: Sedated and intubated. Nonresponsive. No grimacing to pain. Pupils are equal, small and very sluggishly reactive. No cough, corneal reflexes. A/P Problem List: (1) Anemia ICD Code: D64.9 - Anemia, unspecified Status: Acute (2) Ischemic dilated cardiomyopathy ICD Code: I25.5 - Ischemic cardiomyopathy; I42.0 - Dilated cardiomyopathy Status: Chronic (3) Acute renal failure ICD Code: N17.9 - Acute kidney failure, unspecified Status: Acute (4) Cardiac arrest ICD Code: I46.9 - Cardiac arrest, cause unspecified (5) CAD (coronary artery disease) ICD Code: I25.10 - Atherosclerotic heart disease of [place] coronary artery without angina pectoris Status: Chronic (6) Hypertension ICD Code: I10 - Essential (primary) hypertension Status: Chronic (7) Bandemia without diagnosis of specific infection ICD Code: D72.825 - Bandemia Status: Acute (8) Thrombocytopenia ICD Code: D69.6 - Thrombocytopenia, unspecified Status: Acute (9) PAD (peripheral artery disease) ICD Code: I73.9 - Peripheral vascular disease, unspecified Status: Chronic (10) Pulmonary hypertension ICD Code: I27.20 - Pulmonary hypertension, unspecified Status: Chronic (11) Cardiomegaly ICD Code: I51.7 - Cardiomegaly Status: Chronic (12) CHF (congestive heart failure) ICD Code: I50.9 - Heart failure, unspecified Status: Chronic Assessment and Plan Plan by systems: Neurologic: Possible anoxic encephalopathy S/P Cardiac Arrest Rewarming initiated Sedation vacation upon completion of rewarming Obtain neurology consult post rewarming Obtain EEG post rewarming 04/15- CT brain-old lacunar infarct, no MLS, possible normal pressure hydrocephalus Continue stress dose steroids-hydrocortisone Trend ammonia level Respiratory: Acute respiratory failure Maintain O2 saturation greater than 92 % FiO2 currently at 35% Continue bronchodilators every 6 hours scheduled every 2 hours as needed Begin vent weaning trials upon completion of rewarming Ventilator bundle Cardiovascular: S/P PEA arrest Essential hypertension PAD Ischemic cardiomyopathy Cardiomegaly NSTEMI Cardiogenic shock 04/15-hypothermia protocol initiated 04/16-rewarming initiated 04/15-echo EF 20% trace MVR, trace AVR, moderate pulmonary hypertension, moderate left pleural effusion 04/16-patient continues on vasopressin 0.04, and norepinephrine 2 mcgs/min 04/16- cardiology consulted F/U arterial and venous flow studies Renal: MERCEDES Nephrology following -- Strict I/Os FEN/GI: Metabolic acidosis Lactic acidemia Hyperammonemia Shock liver-elevated LFT's Lactate level continues to rise secondary to ischemia and possible infectious process Patient was notably and DIC ultrasound abdominal complete in progress, unable to Doppler bilateral lower extremity pulses popliteal DP and PT follow-up ultrasound arterial/venous BL lower extremities, consider vascular consult upon result Continue sodium bicarbonate infusion Continue serial lactate levels Replete electrolytes per ICU protocol LFTs downtrending, continue to monitor CMP Heme/ID: Anemia Thrombocytopenia Bandemia Coagulopathy Blood cultures- NGTD Urine culture- pending Obtain sputum culture Continue empiric antibiotics vancomycin and Zosyn (day 2) S/P 1 cryoprecipitate, 4 units of FFP (04/15), F/U fibrinogen level Hemoglobin 7.2-plan transfusion 2 units packed red blood cells INR 2.3, continue to monitor Endocrine: Glucose monitoring per ICU protocol low dose regimen -- SSI Prophylaxis: GI Prophylaxis Famotidine DVT Prophylaxis -- SCDs No pharmacological DVT prophylaxis in the setting of thrombocytopenia Lines: Right femoral hypothermic cooling catheter, radial arterial line, peripheral IVs 2. Dispo: my billing statement This patient remains critically ill with one or more organ systems which are or may become a threat to life. I have spent in excess of 39 minutes discontinuously in the care and management of this patient. This time is exclusive of procedures, and includes, but is not limited to, evaluation of the patient, review of the medical record, discussions with family, consultants, nursing staff, or respiratory therapy, and documentation in the medical record. The patient remains critically ill, with continued elevation lactic acidemia. Continues on vasopressor support. Prognosis is very guarded. Palliative care has been consulted, to define goals of care. Carlos Enrique Kathryn Manriquez [phone] Telephone discussion with Ms. Manriquez this morning, next of kin. Provided medical status. Ms. Manriquez wishes at this time to make the patient DNR ( Alternate Code Status) and requests no dialysis be initiated. Josr Ledesma RN also confirmed via telephone request of family member. All questions answered. Physician Monica Quinones Problem Qualifiers (1) CHF (congestive heart failure): Monica Quinones MD Apr 16, 2018 08:50
[2018-04-16] MEDS: NOREPINEPHRINE INJ 4 MG in SODIUM CHLOR 0.9% 250 ML INJ 246 ML IV PRN (09:31)
[2018-04-16] MEDS: fentaNYL DRIP 250 ML IV PRN (09:33)
[2018-04-16] MEDS ORDERED: RESP: ALBUTEROL 2.5 MG/IPRATROPIUM 0.5 MG NEB (PRN) NEB (09:45)
[2018-04-16] MEDS: RESP: ALBUTEROL 2.5 MG/IPRATROPIUM 0.5 MG NEB (SCH) NEB ×3 (10:05→20:33)
--- NOTE | 2018-04-16 10:23 | RADRPT ---
EXAM DATE: 04/16/2018 10:07 AM EDT AGE/SEX: 77 years / Male INDICATIONS: Respiratory failure CLINICAL DATA: This is the patient's subsequent encounter. Patient reports that signs and symptoms h ave been present for 2 days and indicates a pain score of Nonresponsive. MEDICAL/SURGICAL HISTORY: Cardiovascular disease. Chronic obstructive pulmonary disease. Non-r esponsive. COMPARISON: [facility] [place], CHEST SINGLE AP, 04/15/2018. . FINDINGS: Endotracheal tube is present in good position several centimeters above the henry. Nasogastric tube descends to the stomach. Hazy bilateral pleural parenchymal opacity likely reflects parenchymal edema and layering effusion, right worse than left. Cardiac contours are grossly stable. CONCLUSION: Developing parenchymal opacities and likely effusions right worse than left Electronically signed by: Chico Zheng MD 04/16/2018 10:22 AM EDT
--- NOTE | 2018-04-16 11:28 | RADRPT ---
EXAM DATE: 04/16/2018 11:07 AM EDT AGE/SEX: 77 years / Male INDICATIONS: Cold extremities without pedal pulses. CLINICAL DATA: This is the patient's initial encounter. Patient reports that signs and symptoms have been present for 1 day and indicates a pain score of Nonresponsive. MEDICAL/SURGICAL HISTORY: Congestive heart failure. Hypertension. Peripheral artery disease. Status post cardiac arrest. Non-responsive. COMPARISON: No prior exams available for comparison. TECHNIQUE: Bilateral lower extremity ultrasound of the arterial vessels was performed. Perry-scale, C olor Doppler, and Spectral Doppler techniques were utilized. MEASUREMENTS: PEAK SYSTOLIC VELOCITIES: RIGHT: External Iliac Artery:__46 cm/sec Triphasic Common Femoral Artery:__43 cm/sec Triphasic Superficial Femoral Artery:__Occluded cm/sec Monophasic Profunda Femoris Artery:__22 cm/sec Monophasic Popliteal Artery:__Occluded cm/sec Posterior Tibial Artery:__Occluded Anterior Tibial Artery:__Occluded Peroneal Artery:__Occluded LEFT: External Iliac Artery:__26 cm/sec Triphasic Common Femoral Artery:__29 cm/sec Monophasic Superficial Femoral Artery:__5 cm/sec Monophasic Profunda Femoris Artery:__25 cm/sec Monophasic Popliteal Artery:__6 cm/sec Monophasic Posterior Tibial Artery:__Occluded Anterior Tibial Artery:__Occluded Peroneal Artery:__Occluded FINDINGS: Right Lower Extremity: Right SFA occlusion with severe diffuse runoff disease and no viable distal t arget vessels visualized Left Lower Extremity: Severe diffuse runoff disease Other: None. CONCLUSION: 1. 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 2. MRA runoff examination suggested for further evaluation if clinically indicated. Electronically signed by: Chico Zheng MD 04/16/2018 11:26 AM EDT
--- NOTE | 2018-04-16 11:30 | RADRPT ---
EXAM DATE: 04/16/2018 11:28 AM EDT AGE/SEX: 77 years / Male INDICATIONS: Bilateral leg stasis. CLINICAL DATA: This is the patient's initial encounter. Patient reports that signs and symptoms have been present for 1 day and indicates a pain score of Nonresponsive. MEDICAL/SURGICAL HISTORY: Congestive heart failure. Deep venous thrombosis. Dementia. Heart at tack. Coronary artery disease. Tonsillectomy. COMPARISON: No prior exams available for comparison. TECHNIQUE: Venous ultrasound of both lower extremities was performed from the inguinal ligament to t he proximal calf. Real-time, color Doppler and spectral tracing, compression and augmentation techni ques were used. FINDINGS: Right Leg: Normal compression of the deep venous system from the inguinal region to the proximal gilberto f. No echogenic clot is seen. Normal response of the venous system to augmentation and respiration. Left Leg: Normal compression of the deep venous system from the inguinal region to the proximal calf . No echogenic clot is seen. Normal response of the venous system to augmentation and respiration. Other: Please note that the right external iliac and common femoral vein were not optimally visualiz ed secondary to line placement. There is subcutaneous edema bilaterally. CONCLUSION: No venous thrombosis is identified within either lower extremity. Electronically signed by: Chico Phillip MD 04/16/2018 11:29 AM EDT
--- NOTE | 2018-04-16 11:59 | RADRPT ---
EXAM DATE: 04/16/2018 11:46 AM EDT AGE/SEX: 77 years / Male INDICATIONS: Increased lab values. CLINICAL DATA: This is the patient's initial encounter. Patient reports that signs and symptoms have been present for 1 day and indicates a pain score of 0/10. MEDICAL/SURGICAL HISTORY: Congestive heart failure. Deep venous thrombosis. Heart attack. Mervat nary artery disease. Tonsillectomy. COMPARISON: No prior exams available for comparison. MEASUREMENTS: Liver:__ 17.2 cm. Common Bile Duct:___ 4mm. Right Kidney:___18.1 x 9.0 x 6.1 cm. Left Kidney:___9.8 x 5.1 x 4.0 cm. Spleen:___9.5 cm. FINDINGS: Liver: Increased echotexture without focal lesion or ductal dilation. Portal Vein: Hepatopedal flow seen in portal vein. Common Duct: No intraluminal mass or stone visualized. Gallbladder: Mural Edema And Wall Thickening Measuring Upwards Of 1.6 Cm In Diameter. Pericholecystic Fluid Is Probably Related To Mild, Diffuse Perineal Ascites. Pancreas: The visualized portions are within normal limits Right Kidney: Large, 12.5 x 7.9 x 10.9 cm cyst in the upper pole of the right kidney. Some increase in cortical echotexture Left Kidney: Increased echotexture. No mass or hydronephrosis. Ascites: FINDINGS Pleural Effusion: None Spleen: No focal lesion. Aorta: Non aneurysmal. IVC: Central venous catheter identified in the IVC Other: Mild, diffuse ascites. CONCLUSION: 1. Mild, diffuse ascites. 2. Increased hepatic echotexture suggesting some degree of fatty infiltration. 3. Large, 12.5 cm cyst in the upper pole cortex of the right kidney. Both kidneys show some increase in cortical echotexture possibly representing some degree of medical renal disease. 4. Gallbladder wall thickening. Nonspecific and could represent passive congestion associated with t he diffuse ascites. 5. Central venous catheter is identified within the lumen of the IVC. Electronically signed by: Walter Linder MD 04/16/2018 11:58 AM EDT
[2018-04-16] MEDS ORDERED: VANCOMYCIN INJ 1,250 MG in SODIUM CHLOR 0.9% 250 ML INJ 250 ML IV ONE (14:00)
--- NOTE | 2018-04-16 15:01 | HHI.HCPN ---
Reason for visit a. To assist with evaluation and management of symptoms including: pain b. To assist medical decision maker(s) with: better understanding of current medical conditions; weighing benefits/burdens of medical treatment options; making medical treatment decisions. . Subjective/Interval History Mr. Fountain is a 77-year-old male prison resident who presented to [place] ED status post PEA arrest x 2 with prolonged CPR. He was intubated en route. Upon arrival to the hospital, hypothermia protocol was initiated; Rewarming was initiated this morning. Follow-up visit for symptom management and clarification of medical treatment goals. Patient was seen and assessed in the intensive care unit, room 525. No family was present. Patient remains intubated on mechanical ventilation, requiring pressor support to maintain map >65. Ischemic changes noted in the bilateral lower extremities that are cool to touch and mottled. Unable to palpate pedal pulses. Echocardiogram on 04/15/2018 showing severely reduced left ventricular systolic function with an estimated EF fraction <20%. Cardiology has been consulted. Patient was noted to be in DIC yesterday; received cryoprecipitate and FFP. Currently being transfused with RBCs FOR H/H of 7.2/22.8 WBC: 8.4, neutrophils 88.5%, sodium 141, potassium 4.7, chloride 101, glucose 157, calcium 6.3, prot corrected calcium 7.4, phosphorus 7.5, magnesium 2.1, lactic acid 15.9, total bilirubin 3.4, AST 11,924, ALT 3813, alkaline phosphatase 198, total protein 4.9, albumin 2.4 Nephrology was consulted for acute renal failure. Patient remains anuric. Creatinine has increased from 1.63 yesterday to 2.41 today 04/16/18. Family has opted against dialysis. Dr. Quinones, critical care, spoke with the patient niece (Kathryn Manriquez) this morning to provide an update on the patient's clinical condition; CODE STATUS was changed to ALTERNATE CODE. Palliative care spoke with the patient's niece again this afternoon. She understands the patient will likely not survive this hospitalization. We discuss the process of withdrawing artificial life support. She is not ready to make that decision at this time, but she does not want to prolong his suffering either. Palliative care will continue to follow this patient to establish trust, assist with symptom management and clarification of medical treatment goals. . . Family/friend interactions See interval history . Advance Directives Advance Directive Specifics Significant change in goals: CODE STATUS changed to ALTERNATE CODE . Objective Vital Signs Date Time Temp Pulse Resp B/P (MAP) Pulse Ox O2 Delivery O2 Flow Rate FiO2 04/16/18 14:00 66 04/16/18 14:00 96.1 66 0 98/66 (77) 87 113/62 (79) 04/16/18 13:00 95.9 60 0 103/70 (81) 84 115/62 (79) 04/16/18 12:00 95.2 60 3 101/67 (78) 80 112/60 (77) 04/16/18 12:00 60 04/16/18 11:13 94.8 04/16/18 11:10 93.0 56 24 110/58 04/16/18 11:06 99 35 04/16/18 11:00 94.8 56 8 107/69 (82) 74 109/57 (74) 04/16/18 10:00 53 04/16/18 10:00 94.1 53 24 107/69 (82) 113/59 (77) 04/16/18 09:31 54 112/60 04/16/18 09:31 55 112/60 04/16/18 09:00 93.7 56 24 107/68 (81) 114/61 (78) 04/16/18 08:29 92 35 04/16/18 08:00 93.9 52 24 107/68 (81) 108/56 (73) 04/16/18 08:00 52 04/16/18 07:00 93.6 55 24 102/67 (79) 108/56 (73) 04/16/18 06:00 93.9 57 24 102/67 (79) 97 107/55 (72) 04/16/18 06:00 57 04/16/18 05:00 93.5 54 24 107/71 (83) 97 108/58 (75) 04/16/18 04:00 93.5 56 24 109/73 (85) 95 111/59 (76) 04/16/18 04:00 56 04/16/18 03:30 95 35 04/16/18 03:00 93.9 60 24 101/68 (79) 100 114/59 (77) 04/16/18 02:40 56 84/52 04/16/18 02:00 93.9 54 24 98/66 (77) 100 105/57 (73) 04/16/18 02:00 54 04/16/18 01:00 93.5 56 24 92/61 (71) 100 101/54 (70) 04/16/18 00:30 96 35 04/16/18 00:14 56 101/53 04/16/18 00:00 93.8 54 24 92/60 (71) 100 100/52 (68) 04/16/18 00:00 54 04/15/18 23:00 93.7 60 24 103/65 (78) 100 117/62 (80) 04/15/18 22:00 94.1 63 24 103/68 (80) 100 118/62 (80) 04/15/18 22:00 63 04/15/18 21:00 93.9 62 24 99/64 (76) 100 117/61 (79) 04/15/18 20:00 93.9 61 24 99/65 (76) 100 113/61 (78) 04/15/18 20:00 61 04/15/18 19:57 97 35 04/15/18 19:30 61 115/61 04/15/18 19:00 93.8 60 24 104/67 (79) 100 112/61 (78) 04/15/18 18:00 93.6 64 24 109/67 (81) 100 123/63 (83) 04/15/18 18:00 64 04/15/18 17:05 93.2 69 24 126/62 100 04/15/18 17:00 93.6 69 24 105/69 (81) 100 125/63 (83) 04/15/18 16:16 100 35 04/15/18 16:00 66 04/15/18 16:00 93.9 66 24 94/61 (72) 100 113/57 (75) 04/15/18 15:49 68 117/59 04/15/18 15:00 93.7 65 0 114/71 (85) 100 119/59 (79) 04/15/18 14:58 93.3 66 24 117/58 Intake & Output 04/16/18 04/16/18 07:00 19:00 Intake Total 2420 ml 580 ml Output Total 15 ml 13 ml Balance 2405 ml 567 ml Intake IV Total 1450 ml Packed Cells 400 ml FFP 780 ml Blood Product IV Normal Saline Flush 190 ml 180 ml Output Urine Total 15 ml 13 ml . Physical Exam CONSTITUTIONAL/GENERAL: This is an elderly, male patient currently intubated on mechanical ventilation. TUBES/LINES/DRAINS: CVL, PIV x 3, horton, ETT, arterial line SKIN: Jaundice. Ecchymoses on upper extremities. Not diaphoretic. Chronic stasis changes over bilateral lower extremities HEAD: Atraumatic. Normocephalic. EYES: Pupils round and reactive, sluggish. No injection or drainage. ENT: Nose without bleeding or purulent drainage. Unable to visualize throat secondary to tubes. NECK: Trachea midline. Supple, nontender. No palpable thyroid enlargement or nodularity. CARDIOVASCULAR: Regular rate and rhythm without murmurs. Bilateral lower extremities are cool to touch and mottled, unable to palpate pedal pulses. RESPIRATORY/CHEST: Intubated on mechanical ventilation. Coarse air exchange. GASTROINTESTINAL: Abdomen soft, non-tender, nondistended. No guarding. Bowel sounds present. GENITOURINARY: Without palpable bladder distension. Horton catheter in place. MUSCULOSKELETAL: Extremities are edematous. LYMPHATICS: No palpable cervical or supraclavicular adenopathy. NEUROLOGICAL: Sedated. Unresponsive. Does not withdraw to noxious stimuli. PSYCHIATRIC: Unable to assess given current clinical condition. . Diagnostic Tests Laboratory Laboratory Tests Test 04/15/18 01:35 04/15/18 02:05 04/15/18 02:30 04/15/18 03:00 White Blood Count 7.5 TH/MM3 (4.0-11.0) Red Blood Count 3.27 MIL/MM3 (4.50-5.90) Hemoglobin 10.0 GM/DL (13.0-17.0) Hematocrit 33.6 % (39.0-51.0) Mean Corpuscular Volume 102.8 FL (80.0-100.0) Mean Corpuscular Hemoglobin 30.7 PG (27.0-34.0) Mean Corpuscular Hemoglobin Concent 29.9 % (32.0-36.0) Red Cell Distribution Width 18.2 % (11.6-17.2) Platelet Count 120 TH/MM3 (150-450) Mean Platelet Volume 9.4 FL (7.0-11.0) Neutrophils (%) (Auto) 80.4 % (16.0-70.0) Lymphocytes (%) (Auto) 11.9 % (9.0-44.0) Monocytes (%) (Auto) 7.0 % (0.0-8.0) Eosinophils (%) (Auto) 0.2 % (0.0-4.0) Basophils (%) (Auto) 0.5 % (0.0-2.0) Neutrophils # (Auto) 6.1 TH/MM3 (1.8-7.7) Lymphocytes # (Auto) 0.9 TH/MM3 (1.0-4.8) Monocytes # (Auto) 0.5 TH/MM3 (0-0.9) Eosinophils # (Auto) 0.0 TH/MM3 (0-0.4) Basophils # (Auto) 0.0 TH/MM3 (0-0.2) CBC Comment AUTO DIFF Differential Total Cells Counted 100 Neutrophils % (Manual) 44 % (16-70) Band Neutrophils % 37 % (0-6) Lymphocytes % 10 % (9-44) Monocytes % 4 % (0-8) Neutrophils # (Manual) 6.5 TH/MM3 (1.8-7.7) Metamyelocytes 4 % (0-1) Myelocytes 1 % (0-0) Differential Comment FINAL DIFF MANUAL Platelet Estimate LOW (NORMAL) Platelet Morphology Comment ENLARGED (NORMAL) Prothrombin Time 25.5 SEC (9.8-11.6) Prothromb Time International Ratio 2.5 RATIO Activated Partial Thromboplast Time 61.2 SEC (24.3-30.1) Lactic Acid Level 11.9 mmol/L (0.4-2.0) Blood Gas Puncture Site RT FEMORAL RT FEMORAL Blood Gas Patient Temperature 98.6 98.6 Blood Gas HCO3 9 mmol/L (22-26) 8 mmol/L (22-26) Blood Gas Base Excess -20.3 mmol/L (-2-2) -19.1 mmol/L (-2-2) Blood Gas Oxygen Saturation 97 % (90-100) 97 % (90-100) Arterial Blood pH 7.01 (7.380-7.420) 7.12 (7.380-7.420) Arterial Blood Partial Pressure CO2 35 mmHg (38-42) 27 mmHg (38-42) Arterial Blood Partial Pressure O2 206 mmHG (61-120) 183 mmHG (61-120) Arterial Blood Oxygen Content 14.4 Vol % (12.0-20.0) 13.8 Vol % (12.0-20.0) Arterial Blood Carboxyhemoglobin 0.2 % (0-4) 0.6 % (0-4) Arterial Blood Methemoglobin 0.5 % (0-2) 0.7 % (0-2) Blood Gas Hemoglobin 10.2 G/DL (12.0-16.0) 9.9 G/DL (12.0-16.0) Oxygen Delivery Device VENTILATOR VENTILATOR Blood Gas Ventilator Setting Blood Gas Inspired Oxygen 100 % 70 % Urine Color Kristy (YELLW/STRAW) Urine Turbidity TURBID (CLEAR) Urine pH 5.0 (5.0-8.5) Urine Specific [place] 1.024 (1.002-1.035) Urine Protein >=500 mg/dL (NEG-TRACE) Urine Glucose (UA) NEG mg/dL (NEG) Urine Ketones NEG mg/dL (NEG) Urine Occult Blood MOD (NEG) Urine Nitrite NEG (NEG) Urine Bilirubin NEG (NEG) Urine Urobilinogen 4.0 OR GREATER mg/dL (LESS Urine Leukocyte Esterase NEG (NEG) Urine RBC 56 /hpf (0-3) Urine WBC 25 /hpf (0-5) Urine Squamous Epithelial Cells 2 /hpf (0-5) Urine Bacteria MANY /hpf (NONE) Urine Hyaline Casts 32 /lpf (RARE) Urine Granular Casts 25 /lpf (NONE) Urine Mucus FEW /lpf (OCC) Urine Sperm RARE (NONE) Microscopic Urinalysis Comment CATH-CULTURE IND Urine Opiates Screen NEG (NEG) Urine Barbiturates Screen NEG (NEG) Urine Amphetamines Screen NEG (NEG) Urine Benzodiazepines Screen NEG (NEG) Urine Cocaine Screen NEG (NEG) Urine Cannabinoids Screen NEG (NEG) Test 04/15/18 04:15 04/15/18 04:17 04/15/18 06:17 04/15/18 09:02 Lactic Acid Level 12.6 mmol/L (0.4-2.0) Blood Urea Nitrogen 25 MG/DL (7-18) Creatinine 1.63 MG/DL (0.60-1.30) Random Glucose 288 MG/DL (74-106) Total Protein 4.4 GM/DL (6.4-8.2) Albumin 1.9 GM/DL (3.4-5.0) Calcium Level 6.3 MG/DL (8.5-10.1) Phosphorus Level 7.2 MG/DL (2.5-4.9) Magnesium Level 2.2 MG/DL (1.5-2.5) Alkaline Phosphatase 240 U/L (45-117) Aspartate Amino Transf (AST/SGOT) 7768 U/L (15-37) Alanine Aminotransferase (ALT/SGPT) 3281 U/L (12-78) Total Bilirubin 1.4 MG/DL (0.2-1.0) Sodium Level 138 MEQ/L (136-145) Potassium Level 5.6 MEQ/L (3.5-5.1) Chloride Level 107 MEQ/L (98-107) Carbon Dioxide Level 10.0 MEQ/L (21.0-32.0) Anion Gap 21 MEQ/L (5-15) Estimat Glomerular Filtration Rate 41 ML/MIN (>89) Protein Corrected Calcium 7.6 MG/DL (8.5-10.1) Ammonia 77 MCMOL/L (11-32) Troponin I 0.51 NG/ML (0.02-0.05) Blood Gas Puncture Site ART LINE ART LINE Blood Gas Patient Temperature 98.6 98.6 Blood Gas HCO3 10 mmol/L (22-26) 16 mmol/L (22-26) Blood Gas Base Excess -18.2 mmol/L (-2-2) -9.7 mmol/L (-2-2) Blood Gas Oxygen Saturation 95 % (90-100) 96 % (90-100) Arterial Blood pH 7.10 (7.380-7.420) 7.25 (7.380-7.420) Arterial Blood Partial Pressure CO2 32 mmHg (38-42) 39 mmHg (38-42) Arterial Blood Partial Pressure O2 137 mmHg (61-120) 136 mmHg (61-120) Arterial Blood Oxygen Content 14.0 Vol % (12.0-20.0) 13.6 Vol % (12.0-20.0) Arterial Blood Carboxyhemoglobin 0.3 % (0-4) 0.6 % (0-4) Arterial Blood Methemoglobin 1.4 % (0-2) 1.2 % (0-2) Blood Gas Hemoglobin 10.3 G/DL (12.0-16.0) 9.8 G/DL (12.0-16.0) Oxygen Delivery Device VENTILATOR VENTILATOR Blood Gas Ventilator Setting PRVC/ AC Blood Gas Inspired Oxygen 50 % 50 % Test 04/15/18 09:36 04/15/18 12:30 04/15/18 13:50 04/15/18 20:00 Nasal Screen MRSA (PCR) MRSA NOT DETECTED (NOT Troponin I 0.96 NG/ML (0.02-0.05) White Blood Count 9.5 TH/MM3 (4.0-11.0) Red Blood Count 3.18 MIL/MM3 (4.50-5.90) Hemoglobin 9.5 GM/DL (13.0-17.0) Hematocrit 30.8 % (39.0-51.0) Mean Corpuscular Volume 96.7 FL (80.0-100.0) Mean Corpuscular Hemoglobin 29.8 PG (27.0-34.0) Mean Corpuscular Hemoglobin Concent 30.8 % (32.0-36.0) Red Cell Distribution Width 17.3 % (11.6-17.2) Platelet Count 114 TH/MM3 (150-450) Mean Platelet Volume 9.3 FL (7.0-11.0) Neutrophils (%) (Auto) 90.1 % (16.0-70.0) Lymphocytes (%) (Auto) 3.2 % (9.0-44.0) Monocytes (%) (Auto) 6.4 % (0.0-8.0) Eosinophils (%) (Auto) 0.0 % (0.0-4.0) Basophils (%) (Auto) 0.3 % (0.0-2.0) Neutrophils # (Auto) 8.5 TH/MM3 (1.8-7.7) Lymphocytes # (Auto) 0.3 TH/MM3 (1.0-4.8) Monocytes # (Auto) 0.6 TH/MM3 (0-0.9) Eosinophils # (Auto) 0.0 TH/MM3 (0-0.4) Basophils # (Auto) 0.0 TH/MM3 (0-0.2) CBC Comment AUTO DIFF Differential Total Cells Counted 100 Neutrophils % (Manual) 68 % (16-70) Band Neutrophils % 20 % (0-6) Lymphocytes % 6 % (9-44) Monocytes % 5 % (0-8) Neutrophils # (Manual) 8.5 TH/MM3 (1.8-7.7) Metamyelocytes 1 % (0-1) Differential Comment FINAL DIFF MANUAL Platelet Estimate LOW (NORMAL) Platelet Morphology Comment NORMAL (NORMAL) Ovalocytes 1+ (NORMAL) Prothrombin Time 39.4 SEC (9.8-11.6) Prothromb Time International Ratio 3.9 RATIO Fibrinogen 69 mg/dL (227-377) Blood Urea Nitrogen 30 MG/DL (7-18) Creatinine 2.06 MG/DL (0.60-1.30) Random Glucose 175 MG/DL (74-106) Total Protein 4.6 GM/DL (6.4-8.2) Albumin 2.2 GM/DL (3.4-5.0) Calcium Level 6.6 MG/DL (8.5-10.1) Alkaline Phosphatase 255 U/L (45-117) Aspartate Amino Transf (AST/SGOT) 38112 U/L (15-37) Alanine Aminotransferase (ALT/SGPT) 4549 U/L (12-78) Total Bilirubin 2.7 MG/DL (0.2-1.0) Sodium Level 144 MEQ/L (136-145) Potassium Level 4.7 MEQ/L (3.5-5.1) Chloride Level 107 MEQ/L (98-107) Carbon Dioxide Level 17.8 MEQ/L (21.0-32.0) Anion Gap 19 MEQ/L (5-15) Estimat Glomerular Filtration Rate 32 ML/MIN (>89) Lactic Acid Level 12.3 mmol/L (0.4-2.0) Protein Corrected Calcium 7.9 MG/DL (8.5-10.1) Blood Gas Puncture Site ART LINE ART LINE Blood Gas Patient Temperature 98.6 98.6 Blood Gas HCO3 14 mmol/L (22-26) 12 mmol/L (22-26) Blood Gas Base Excess -11.3 mmol/L (-2-2) -13.1 mmol/L (-2-2) Blood Gas Oxygen Saturation 97 % (90-100) 96 % (90-100) Arterial Blood pH 7.30 (7.380-7.420) 7.29 (7.380-7.420) Arterial Blood Partial Pressure CO2 29 mmHg (38-42) 26 mmHg (38-42) Arterial Blood Partial Pressure O2 171 mmHg (61-120) 152 mmHg (61-120) Arterial Blood Oxygen Content 12.6 Vol % (12.0-20.0) 11.0 Vol % (12.0-20.0) Arterial Blood Carboxyhemoglobin 0.8 % (0-4) 1.0 % (0-4) Arterial Blood Methemoglobin 1.2 % (0-2) 1.5 % (0-2) Blood Gas Hemoglobin 8.9 G/DL (12.0-16.0) 7.9 G/DL (12.0-16.0) Oxygen Delivery Device VENTILATOR VENTILATOR Blood Gas Ventilator Setting PRVC/AC Blood Gas Inspired Oxygen 40 % 35 % Test 04/15/18 21:00 04/16/18 04:00 04/16/18 06:19 04/16/18 08:51 Blood Urea Nitrogen 34 MG/DL (7-18) 35 MG/DL (7-18) Creatinine 2.16 MG/DL (0.60-1.30) 2.41 MG/DL (0.60-1.30) Random Glucose 189 MG/DL (74-106) 157 MG/DL (74-106) Total Protein 5.2 GM/DL (6.4-8.2) 4.9 GM/DL (6.4-8.2) Calcium Level 6.7 MG/DL (8.5-10.1) 6.3 MG/DL (8.5-10.1) Magnesium Level 2.3 MG/DL (1.5-2.5) 2.1 MG/DL (1.5-2.5) Sodium Level 141 MEQ/L (136-145) 141 MEQ/L (136-145) Potassium Level 4.8 MEQ/L (3.5-5.1) 4.7 MEQ/L (3.5-5.1) Chloride Level 103 MEQ/L (98-107) 101 MEQ/L (98-107) Carbon Dioxide Level 12.3 MEQ/L (21.0-32.0) 14.6 MEQ/L (21.0-32.0) Anion Gap 26 MEQ/L (5-15) 25 MEQ/L (5-15) Estimat Glomerular Filtration Rate 30 ML/MIN (>89) 26 ML/MIN (>89) Protein Corrected Calcium 7.7 MG/DL (8.5-10.1) 7.4 MG/DL (8.5-10.1) White Blood Count 8.4 TH/MM3 (4.0-11.0) Red Blood Count 2.36 MIL/MM3 (4.50-5.90) Hemoglobin 7.2 GM/DL (13.0-17.0) Hematocrit 22.8 % (39.0-51.0) Mean Corpuscular Volume 96.3 FL (80.0-100.0) Mean Corpuscular Hemoglobin 30.3 PG (27.0-34.0) Mean Corpuscular Hemoglobin Concent 31.5 % (32.0-36.0) Red Cell Distribution Width 17.5 % (11.6-17.2) Platelet Count 55 TH/MM3 (150-450) Mean Platelet Volume 9.7 FL (7.0-11.0) Neutrophils (%) (Auto) 88.5 % (16.0-70.0) Lymphocytes (%) (Auto) 5.7 % (9.0-44.0) Monocytes (%) (Auto) 4.8 % (0.0-8.0) Eosinophils (%) (Auto) 0.9 % (0.0-4.0) Basophils (%) (Auto) 0.1 % (0.0-2.0) Neutrophils # (Auto) 7.4 TH/MM3 (1.8-7.7) Lymphocytes # (Auto) 0.5 TH/MM3 (1.0-4.8) Monocytes # (Auto) 0.4 TH/MM3 (0-0.9) Eosinophils # (Auto) 0.1 TH/MM3 (0-0.4) Basophils # (Auto) 0.0 TH/MM3 (0-0.2) CBC Comment AUTO DIFF Differential Total Cells Counted 100 Neutrophils % (Manual) 57 % (16-70) Band Neutrophils % 34 % (0-6) Lymphocytes % 5 % (9-44) Monocytes % 4 % (0-8) Neutrophils # (Manual) 7.6 TH/MM3 (1.8-7.7) Nucleated Red Blood Cells 1 /100 WBC (0-0) Differential Comment FINAL DIFF MANUAL Platelet Estimate LOW (NORMAL) Platelet Morphology Comment NORMAL (NORMAL) Ovalocytes 1+ (NORMAL) Acanthocytes OCC (NORMAL) Keratocytes OCC (NORMAL) Prothrombin Time 23.2 SEC (9.8-11.6) Prothromb Time International Ratio 2.3 RATIO Activated Partial Thromboplast Time 35.4 SEC (24.3-30.1) Albumin 2.4 GM/DL (3.4-5.0) Phosphorus Level 7.5 MG/DL (2.5-4.9) Alkaline Phosphatase 198 U/L (45-117) Aspartate Amino Transf (AST/SGOT) 25632 U/L (15-37) Alanine Aminotransferase (ALT/SGPT) 3813 U/L (12-78) Total Bilirubin 3.4 MG/DL (0.2-1.0) Lactic Acid Level 15.9 mmol/L (0.4-2.0) Random Vancomycin Level 9.9 COMMENT Blood Gas Puncture Site ART LINE SANDRA Blood Gas Patient Temperature 98.6 98.6 Blood Gas HCO3 14 mmol/L (22-26) 15 mmol/L (22-26) Blood Gas Base Excess -10.9 mmol/L (-2-2) -8.7 mmol/L (-2-2) Blood Gas Oxygen Saturation 97 % (90-100) 97 % (90-100) Arterial Blood pH 7.33 (7.380-7.420) 7.40 (7.380-7.420) Arterial Blood Partial Pressure CO2 27 mmHg (38-42) 25 mmHg (38-42) Arterial Blood Partial Pressure O2 174 mmHg (61-120) 199 mmHg (61-120) Arterial Blood Oxygen Content 9.7 Vol % (12.0-20.0) 10.2 Vol % (12.0-20.0) Arterial Blood Carboxyhemoglobin 1.1 % (0-4) 1.1 % (0-4) Arterial Blood Methemoglobin 1.3 % (0-2) 1.5 % (0-2) Blood Gas Hemoglobin 6.8 G/DL (12.0-16.0) 7.1 G/DL (12.0-16.0) Oxygen Delivery Device VENTILATOR VENTILATOR Blood Gas Ventilator Setting PRVC/ AC SEE COMMENTS Blood Gas Inspired Oxygen 35 % 35 % Test 04/16/18 09:10 Fibrinogen 160 mg/dL (227-377) . Result Diagram: 04/16/1839904/16/18 040 Microbiology Microbiology Date/Time Source Procedure Growth Status 04/15/18 21:00 Blood Line Aerobic Blood Culture - Preliminary NO GROWTH IN 1 DAY Resulted 04/15/18 21:00 Blood Line Anaerobic Blood Culture - Preliminary NO GROWTH IN 1 DAY Resulted 04/15/18 01:35 Blood Peripheral Aerobic Blood Culture - Preliminary NO GROWTH IN 1 DAY Resulted 04/15/18 01:35 Blood Peripheral Anaerobic Blood Culture - Preliminary NO GROWTH IN 1 DAY Resulted 04/15/18 01:20 Blood Peripheral Aerobic Blood Culture - Preliminary NO GROWTH IN 1 DAY Resulted 04/15/18 01:20 Blood Peripheral Anaerobic Blood Culture - Preliminary NO GROWTH IN 1 DAY Resulted 04/16/18 13:24 Sputum Endotracheal Gram Stain Pending Received 04/16/18 13:24 Sputum Endotracheal Sputum Culture Pending Received 04/15/18 02:30 Urine Catheterized Urine Urine Culture - Preliminary NO GROWTH IN 24 HOURS. Resulted . Imaging Last 72 hours Impressions Lower Extremity Ultrasound 04/16/18 0000 Signed Impressions: CONCLUSION: No venous thrombosis is identified within either lower extremity. Chest X-Ray 04/16/18 0000 Signed Impressions: CONCLUSION: Developing parenchymal opacities and likely effusions right worse than left Arterial Ultrasound 04/16/18 0000 Signed Impressions: CONCLUSION: 1. Severe bilateral lower extremity runoff disease which appears likely unreco nstructible. 2. MRA runoff examination suggested for further evaluation if clinically indic ated. Abdomen Ultrasound 04/16/18 0000 Signed Impressions: CONCLUSION: 1. Mild, diffuse ascites. 2. Increased hepatic echotexture suggesting some degree of fatty infiltration. 3. Large, 12.5 cm cyst in the upper pole cortex of the right kidney. Both kidn eys show some increase in cortical echotexture possibly representing some degre e of medical renal disease. 4. Gallbladder wall thickening. Nonspecific and could represent passive conges tion associated with the diffuse ascites. 5. Central venous catheter is identified within the lumen of the IVC. Head CT 04/15/18 0000 Signed Impressions: CONCLUSION: 1. Enlargement of the ventricles and mild dilatation of the sulci. This could be related to normal pressure hydrocephalus given the ventricles are dilated ou t of proportion to the sulcal widening. 2. Decreased density in the periventricular white matter. This is most promine nt in the right frontal white matter 3. No areas of definite hemorrhage or mass effect are seen. Chest X-Ray 04/15/18 0000 Signed Impressions: CONCLUSION: ET tube in good position. NG tube with tip in the distal esophagus. This should be advanced. Linear atelectasis or consolidation medial left base. . Procedures 04/15/2018: Intubation (en route) 04/15/2018: NGT placed 04/15/2018: Central line placement . Assessment and Plan Disease Oriented Problem List: (1) Cardiac arrest (2) Major neurocognitive disorder due to Alzheimer's disease, probable, without behavioral disturbance (3) Acute renal failure (4) CAD (coronary artery disease) (5) Elevated bilirubin Symptom Scale: (1) Pain 0-10 Scale: Unable to quantify Pertinent Non-Medical Issues Psychosocial:Patient is originally from [place], [place]. He was [facility] Acted on 02/26/2018 secondary to self neglecting behavior and disorganization. Patient was homeless at that time; he has been living at [facility] since being discharged on 03/13/2018. Spiritual: Unknown at this time. Legal: Per [place] statutes, in the absence of written advanced directives healthcare proxy decision making would fall to the patient's niece. Ethical issues impacting care: No known ethical issues impacting care at this time. . Important Contacts Kathryn Manriquez, niece: [phone] . Prognosis 77-year-old male status post cardiac arrest who was started on hypothermia protocol; now with multisystem organ dysfunction. Multisystem organ dysfunction. Overall prognosis is poor. . Code Status: Full Code Plan * FULL CODE * Decision-making. Patient currently does not have capacity for medical decision -making. He has a niece (Kathryn Manriquez) who is acting in the role of healthcare proxy decision-maker; no other family has been identified. * Dr. Quinones, critical care, spoke with the patient niece (Kathryn Manriquez) this morning to provide an update on the patient's clinical condition; CODE STATUS was changed to ALTERNATE CODE. Palliative care spoke with the patient's niece again this afternoon. She understands the patient will likely not survive this hospitalization. We discuss the process of withdrawing artificial life support. She is not ready to make that decision at this time, but she does not want to prolong his suffering either. Palliative care will follow up tomorrow. * Discussed patient with RN (Josr) and Dr. Quinones. * Symptom management-pain: Multifactoral. Status post CPR 2; suspected infection, poor circulation, intubation, invasive lines, immobility. Currently sedated on fentanyl and midazolam, PRN morphine is available but has not been required. * Palliative care will continue to follow this patient throughout his hospitalization to establish trust, assist with symptom management and clarification of medical treatment goals. Attestation To help prompt me to consider important information that might be impacting today's encounter and assessment, information from prior notes written by myself or my colleagues may have been "brought forward" into today's note. My signature on this note, however, is an attestation that I personally performed the exam, history, and/or decision-making noted today, and, unless otherwise indicated, the interactions with patient, family, and staff as well as the review of records all occurred today. I also attest that the listed assessment and stated plan reflect my best clinical judgment today based on the combination of historical information, prior notes, and today's exam/ interactions. When time spent is documented, it refers only to time spent today by the signer, or if indicated, combined time spent today by collaborating physician/nurse practitioner. . Winifred Freeman Apr 16, 2018 15:01
--- NOTE | 2018-04-16 17:56 | MB ---
cc: Jose R Forrest MD DATE: 04/16/2018 HISTORY OF PRESENT ILLNESS: Mr. Fountain is a 77-year-old white male who suffered a cardiac arrest at his nursing facility. He was found unresponsive. EMS was called and CPR was initiated. He was found to be in PEA and CPR and epinephrine resulted in the return of spontaneous circulation. He was intubated and admitted to the ICU. He has been unresponsive. The hypothermia protocol was initiated. PAST MEDICAL HISTORY: Positive for dementia, coronary artery disease, myocardial infarction, congestive heart failure, hypertension, peripheral vascular disease. MEDICATIONS: Seroquel, aspirin, carvedilol, Tylenol, hydrochlorothiazide, Aricept. ALLERGIES: NONE. SOCIAL HISTORY: The patient is ambulating with a walker and he lives in a fpc. His niece living out of state is his closest relative. FAMILY HISTORY: Unknown. REVIEW OF SYSTEMS: Otherwise negative. PHYSICAL EXAMINATION: VITAL SIGNS: Blood pressure 110/58, pulse 64 and regular. GENERAL: The patient is intubated and sedated. NECK: 2+ carotid upstrokes. LUNGS: With a few rhonchi. HEART: Regular, with no murmur or gallop. ABDOMEN: Soft. No bruits. EXTREMITIES: Without edema, absent distal pulses. NEUROLOGIC: Grossly nonfocal. The patient is unresponsive. ECHOCARDIOGRAM: Was reviewed and showed normal sinus rhythm, intraventricular conduction delay, first degree AV block. LABORATORY DATA: Hemoglobin 7.2, potassium 4.7, creatinine 2.4. DIAGNOSES: 1. Cardiac arrest. 2. Ischemic cardiomyopathy. 3. Acute renal failure. 4. Coronary artery disease. 5. Hypertension. 6. Anemia. 7. Thrombocytopenia. 8. Disseminated intravascular coagulation. 9. Peripheral vascular disease. DISPOSITION: Mr. Fountain will be monitored in the ICU. His neurologic status is at this time unclear. His overall prognosis is grave. His echocardiogram showed severe left ventricle dysfunction. He appears to have severe peripheral vascular disease. I will follow him for cardiology during his hospitalization. Palliative Care has been involved and he has been made DNR by his niece. MD CAROLIN May/KALYN , 04:12 PM , 05:55 PM GUICHO
--- NOTE | 2018-04-16 18:25 | HHI.NPPN ---
Subjective History of Present Illness 77-year-old white male who suffered cardiac arrest Objective Data Data 04/16/18 04/17/18 19:00 07:00 Intake Total 2088.5 ml Output Total 20 ml Balance 2068.5 ml Intake IV Total 1048.5 ml Packed Cells 800 ml Blood Product IV Normal Saline Flush 240 ml Output Urine Total 20 ml Vital Signs Date Time Temp Pulse Resp B/P (MAP) Pulse Ox O2 Delivery O2 Flow Rate FiO2 04/16/18 18:00 96.6 64 24 96/64 (75) 92 106/56 (73) 04/16/18 18:00 64 04/16/18 17:19 66 107/56 04/16/18 17:18 66 106/55 04/16/18 17:00 97.5 67 24 95/66 (76) 89 108/56 (73) 04/16/18 16:00 97.2 67 24 93/65 (74) 88 109/58 (75) 04/16/18 16:00 67 04/16/18 15:00 96.6 64 24 98/65 (76) 90 110/58 (75) 04/16/18 14:27 97 35 04/16/18 14:00 66 04/16/18 14:00 96.1 66 0 98/66 (77) 87 113/62 (79) 04/16/18 13:00 95.9 60 0 103/70 (81) 84 115/62 (79) 04/16/18 12:00 95.2 60 3 101/67 (78) 80 112/60 (77) 04/16/18 12:00 60 04/16/18 11:13 94.8 04/16/18 11:10 93.0 56 24 110/58 04/16/18 11:06 99 35 04/16/18 11:00 94.8 56 8 107/69 (82) 74 109/57 (74) 04/16/18 10:00 53 04/16/18 10:00 94.1 53 24 107/69 (82) 113/59 (77) 04/16/18 09:31 54 112/60 04/16/18 09:31 55 112/60 04/16/18 09:00 93.7 56 24 107/68 (81) 114/61 (78) 04/16/18 08:29 92 35 04/16/18 08:00 93.9 52 24 107/68 (81) 108/56 (73) 04/16/18 08:00 52 04/16/18 07:00 93.6 55 24 102/67 (79) 108/56 (73) 04/16/18 06:00 93.9 57 24 102/67 (79) 97 107/55 (72) 04/16/18 06:00 57 04/16/18 05:00 93.5 54 24 107/71 (83) 97 108/58 (75) 04/16/18 04:00 93.5 56 24 109/73 (85) 95 111/59 (76) 04/16/18 04:00 56 04/16/18 03:30 95 35 04/16/18 03:00 93.9 60 24 101/68 (79) 100 114/59 (77) 04/16/18 02:40 56 84/52 04/16/18 02:00 93.9 54 24 98/66 (77) 100 105/57 (73) 04/16/18 02:00 54 04/16/18 01:00 93.5 56 24 92/61 (71) 100 101/54 (70) 04/16/18 00:30 96 35 04/16/18 00:14 56 101/53 04/16/18 00:00 93.8 54 24 92/60 (71) 100 100/52 (68) 04/16/18 00:00 54 04/15/18 23:00 93.7 60 24 103/65 (78) 100 117/62 (80) 04/15/18 22:00 94.1 63 24 103/68 (80) 100 118/62 (80) 04/15/18 22:00 63 04/15/18 21:00 93.9 62 24 99/64 (76) 100 117/61 (79) 04/15/18 20:00 93.9 61 24 99/65 (76) 100 113/61 (78) 04/15/18 20:00 61 04/15/18 19:57 97 35 04/15/18 19:30 61 115/61 04/15/18 19:00 93.8 60 24 104/67 (79) 100 112/61 (78) -: 04/16/18 0400 04/16/18 0400 Microbiology 04/15/18 Aerobic Blood Culture - Preliminary, Resulted NO GROWTH IN 1 DAY 04/15/18 Anaerobic Blood Culture - Preliminary, Resulted NO GROWTH IN 1 DAY 04/16/18 Gram Stain, Received Pending 04/16/18 Sputum Culture, Received Pending Physical Exam General Appearance: Pale Pulmonary Resp Exam: Decreased Bases Cardiology CV Exam: Arrhythmia Gastrointestinal/Abdomen GI Exam: Soft, Bowel Sounds Absent Integumentary Skin Exam: Cool Extremeties Extremities Exam: Moderate Edema (Ischemic legs no pulse) Neurologic Neuro Exam: Comatose Assessment/Plan Problem List: (1) Acute renal failure ICD Codes: N17.9 - Acute kidney failure, unspecified Status: Acute Plan: Patient is not making urine doing poorly Palliative is on the case Remains Anuric he likely has anoxic brain damage Prolonged CPR Possibility of dialysis access next of kin wants aggressive care to continue EF 20% cardiology following prognosis is poor I will monitor along with you Code change to intubation only He has ischemic cold extremities markedly mottled ischemic likely will necrose Acidosis Poor prognosis Not a candidate for dialysis (2) CAD (coronary artery disease) ICD Codes: I25.10 - Atherosclerotic heart disease of [place] coronary artery without angina pectoris Status: Chronic (3) Elevated bilirubin ICD Codes: R17 - Unspecified jaundice (4) ALZHEIMER'S DISEASE WITH LATE ONSET ICD Codes: G30.1 - ALZHEIMER'S DISEASE WITH LATE ONSET (5) Cardiac arrest ICD Codes: I46.9 - Cardiac arrest, cause unspecified Tone Bowman MD Apr 16, 2018 18:25
[2018-04-16] MEDS ORDERED: DOBUTamine INJ 1,000 MG in DEXTROSE 5% IN WATER INJ 170 ML IV PRN ×2 (23:30)
[2018-04-17] VITALS (21 sets, daily range): BP systolic 96–131; BP diastolic 56–72; PULSE 65–80; RESP 0–24; O2SAT 77–100
[2018-04-17] MEDS: SODIUM BICARBONATE 8.4% INJ 150 MEQ in DEXTROSE 5% IN WATE 1000ML INJ 1,000 ML IV SCH ×8 (00:40→20:32)
[2018-04-17] MEDS: CHLORHEXIDINE GLUCONATE 2 % 1 PACK (2 CLOTHS) TOP SCH (03:02)
[2018-04-17] MEDS: RESP: ALBUTEROL 2.5 MG/IPRATROPIUM 0.5 MG NEB (SCH) NEB ×4 (03:07→19:34)
[2018-04-17] MEDS: PIPERACIL-TAZO 2.25 GM PREMIX 50 ML IV SCH ×4 (03:24→21:30)
--- NOTE | 2018-04-17 03:51 | RADRPT ---
EXAM DATE: 04/17/2018 3:25 AM EDT AGE/SEX: 77 years / Male INDICATIONS: Short of breath. CLINICAL DATA: This is the patient's subsequent encounter. Patient reports that signs and symptoms h ave been present for 4 - 6 days and indicates a pain score of 0/10. MEDICAL/SURGICAL HISTORY: Cardiovascular disease. Chronic obstructive pulmonary disease. Non-r esponsive. COMPARISON: [facility] [place], CHEST SINGLE AP, 04/16/2018. . FINDINGS: The ET tube is 3.8 cm from the henry. The NG tube is directed into the stomach. The heart size is en larged. There does appear to be a central line placed from the groin with the tip overlying the right atrium. There is increased density at the bases bilaterally with silhouetting of the hemidiaphragms. Hazy density seen throughout the right lung. The patient is rotated towards the right. CONCLUSION: Cardiomegaly. Bibasilar areas of consolidation/atelectasis and/or effusion. Electronically signed by: Chico Stokes MD 04/17/2018 3:50 AM EDT
[2018-04-17 04:23] LABS: AUTOMATED NEUTROPHIL # 11.7 TH/MM3 (1.8-7.7); BASOPHIL # 0.2 TH/MM3 (0-0.2); BASOPHIL % 1.3 % (0.0-2.0); EOSINOPHIL # 0.3 TH/MM3 (0-0.4); HEMATOCRIT 30.4 % (39.0-51.0); HEMOGLOBIN 10.1 GM/DL (13.0-17.0); LYMPH % 3.7 % (9.0-44.0); LYMPHOCYTE # 0.5 TH/MM3 (1.0-4.8); MEAN CELL VOLUME 92.9 FL (80.0-100.0); MEAN CORPUSCULAR HEMOGLOBIN 30.9 PG (27.0-34.0); MEAN CORPUSCULAR HGB CONC 33.3 % (32.0-36.0); MEAN PLATELET VOLUME 11.3 FL (7.0-11.0); MONO % 2.7 % (0.0-8.0); MONOCYTE # 0.3 TH/MM3 (0-0.9); NEUT % 90.3 % (16.0-70.0); PLATELET COUNT 59 TH/MM3 (150-450); RED BLOOD COUNT 3.27 MIL/MM3 (4.50-5.90); RED CELL DISTRIBUTION WIDTH 16.4 % (11.6-17.2)
[2018-04-17 04:28] LABS: INTERNATIONAL NORMALIZED RATIO 3.1 RATIO; PROTHROMBIN TIME - PATIENT 31.7 SEC (9.8-11.6)
[2018-04-17 05:01] LABS: BICARBONATE 16.3 MEQ/L (21.0-32.0); CALCIUM 5.9 MG/DL (8.5-10.1); CREATININE 3.05 MG/DL (0.60-1.30); MAGNESIUM 1.8 MG/DL (1.5-2.5); PHOSPHORUS 7.4 MG/DL (2.5-4.9); RANDOM VANCOMYCIN 26.2 COMMENT; TOTAL PROTEIN 4.2 GM/DL (6.4-8.2)
[2018-04-17 05:08] LABS: CALCIUM-PROTEIN CORRECTED 7.3 MG/DL (8.5-10.1)
[2018-04-17] MEDS: HYDROCORTISONE SOD SUCCINATE 100 MG VIAL IV PUSH SCH ×3 (05:27→16:57)
[2018-04-17 05:55] LABS: BANDS 48 % (0-6); CORRECTED NUCLEATED RBC 5 /100 WBC (0-0); LYMPHOCYTES 1 % (9-44); METAMYELOCYTES 7 % (0-1); NEUTROPHIL # MANUAL DIFF 12.9 TH/MM3 (1.8-7.7); NUCLEATED RED BLOOD CELL 5 (0-0); POLYS (SEG NEUTROPHILS) 44 % (16-70)
[2018-04-17 05:56] LABS: TOXIC VACUOLATION PRESENT (NONE SEEN)
[2018-04-17 05:57] LABS: DOHLE BODIES PRESENT (NONE SEEN)
[2018-04-17] MEDS: INSULIN NovoLIN REGULAR SUPPLEMENTAL SCALE SQ SCH ×4 (08:00→21:31)
[2018-04-17] MEDS: DOCUSATE SODIUM 50 MG/SENNA 8.6 MG TAB PO SCH ×2 (08:46→21:31)
[2018-04-17] MEDS: FAMOTIDINE 20 MG/2 ML VIAL IV PUSH SCH ×2 (08:46→21:31)
[2018-04-17] MEDS: ARTIFICIAL TEARS OPTH SOLN 15 ML BTL EACH EYE SCH ×3 (08:46→16:57)
[2018-04-17] MEDS: CHLORHEXIDINE 0.12% (ORAL KIT) 15 ML CUP MT SCH ×2 (08:47→20:33)
[2018-04-17] MEDS: SODIUM CHLORIDE 0.9% FLUSH 10 ML FLUSH IV FLUSH SCH ×2 (08:47→21:30)
--- NOTE | 2018-04-17 11:21 | HHI.CCPN ---
Subjective Remarks/Hospital Course 77-year-old man presents emergency department from nursing facility following cardiac arrest. Patient was reportedly normal an hour before EMS was called, with a medical check on again he was unresponsive. EMS arrived to find CPR in progress. Initial rhythm of PEA, he has received 2 cycles of CPR and 2 doses of epinephrine with return of spontaneous circulation in route. Then lost pulses again and PEA arrest, responded again to epinephrine. He was intubated. No other history is available. 04/15: Patient remains very critically ill. This morning due to increased pressor requirements patient was started on vasopressin in addition to norepinephrine. He is currently undergoing hypothermia protocol. Continuous oozing from cooling catheter site. Currently on norepinephrine at 12 micrograms per minute and vasopressin at 0.04. Urine output is low. Refractory metabolic acidosis requiring additional bicarb pushes this morning and continues bicarb infusion. He sedated with midazolam and fentanyl infusions. 04/16: Patient continues on vasopressors to maintain MAP greater than 65, echo revealed EF 20%. Rewarming initiated this a.m.. Severe acidosis worsening. Noted ischemic changes bilateral lower extremities no pulses palpated or dopplerable DP, PT, popliteal. Venous and arterial Doppler studies in progress. Patient noted to be in DIC yesterday ,received cryoprecipitate. Fibrinogen level pending. Hemoglobin noted to be 7.2, plan for transfusion packed red blood cells. Cardiology also has been consulted. 04/17: Sedation discontinued last evening. Patient remains encephalopathic. EEG , CT brain pending. Neurology has been consulted. Arterial Doppler bilaterally reveals severe bilateral lower extremity disease, appears non- reconstructable vascular surgery has been consult for review and evaluation. The patient continues on dobutamine at 5 mics and vasopressin to maintain a map of 65. Lactic acid continues to decline or remains unchanged secondary to liver inability to clear lactic acid as well as continued ischemia of bilateral lower extremities, secondary to severe PAD. Objective Vital Signs Date Time Temp Pulse Resp B/P (MAP) Pulse Ox O2 Delivery O2 Flow Rate FiO2 04/17/18 10:21 97 35 04/17/18 10:00 76 04/17/18 08:00 97.9 22 122/72 (89) 129/58 (81) 04/15/18 05:48 Ventilator Intake and Output 04/17/18 04/17/18 04/18/18 08:00 16:00 00:00 Intake Total 1882 ml 694 ml Output Total 10 ml Balance 1872 ml 694 ml Result Diagram: 04/17/18 0404 04/17/18 0404 Other Results Microbiology Date/Time Source Procedure Growth Status 04/15/18 02:30 Urine Catheterized Urine Urine Culture - Final NO GROWTH IN 48 HOURS. Complete Laboratory Tests Test 04/16/18 21:35 04/17/18 10:18 Blood Gas Puncture Site ART LINE SANDRA Blood Gas Patient Temperature 98.6 98.6 Blood Gas HCO3 12 mmol/L (22-26) 19 mmol/L (22-26) Blood Gas Base Excess -12.0 mmol/L (-2-2) -3.4 mmol/L (-2-2) Blood Gas Oxygen Saturation 97 % (90-100) 97 % (90-100) Arterial Blood pH 7.39 (7.380-7.420) 7.50 (7.380-7.420) Arterial Blood Partial Pressure CO2 20 mmHg (38-42) 25 mmHg (38-42) Arterial Blood Partial Pressure O2 205 mmHg (61-120) 168 mmHg (61-120) Arterial Blood Oxygen Content 15.1 Vol % (12.0-20.0) 14.6 Vol % (12.0-20.0) Arterial Blood Carboxyhemoglobin 0.9 % (0-4) 1.0 % (0-4) Arterial Blood Methemoglobin 1.4 % (0-2) 1.3 % (0-2) Blood Gas Hemoglobin 10.8 G/DL (12.0-16.0) 10.4 G/DL (12.0-16.0) Oxygen Delivery Device VENTILATOR VENTILATOR Blood Gas Ventilator Setting PRVC / AC / SEE COMMENTS Blood Gas Inspired Oxygen 45 % 35 % Imaging Last 24 hours Impressions Chest X-Ray 04/15/18 0000 Signed Impressions: CONCLUSION: ET tube in good position. NG tube with tip in the distal esophagus. This should be advanced. Linear atelectasis or consolidation medial left base. Objective Remarks GENERAL: This is a critically ill-appearing elderly gentleman, intubated and unresponsive SKIN: Chronic stasis changes over bilateral lower extremities, no pulses DP, PT , popliteal B/L lower extremities. Scrotal edema with discoloration. Multiple sites of ecchymosis, B/L upper extremities. B/L lower extremities cool to touch , ecchymotic, mottled HEAD: Normocephalic. Orally intubated EYES: Pupils are equal, small, very sluggishly reactive. Clear are anicteric. NECK: Supple, no rigidity. No JVD CARDIOVASCULAR: Regular heart sounds, no murmurs. RESPIRATORY: Coarse breath sounds bilateral. Good air entry. No wheezes. GASTROINTESTINAL: Abdomen soft, non-tender, nondistended. Bowel sounds are present. MUSCULOSKELETAL: No cyanosis, or edema. NEURO EXAM: GCS 3 T. intubated. Nonresponsive. Does not withdraw to painful stimuli. pupils are equal, small and very sluggishly reactive. No cough, corneal, or gas reflexes. A/P Problem List: (1) Anemia ICD Code: D64.9 - Anemia, unspecified Status: Acute (2) Ischemic dilated cardiomyopathy ICD Code: I25.5 - Ischemic cardiomyopathy; I42.0 - Dilated cardiomyopathy Status: Chronic (3) Acute renal failure ICD Code: N17.9 - Acute kidney failure, unspecified Status: Acute (4) Cardiac arrest ICD Code: I46.9 - Cardiac arrest, cause unspecified (5) CAD (coronary artery disease) ICD Code: I25.10 - Atherosclerotic heart disease of [place] coronary artery without angina pectoris Status: Chronic (6) Hypertension ICD Code: I10 - Essential (primary) hypertension Status: Chronic (7) Bandemia without diagnosis of specific infection ICD Code: D72.825 - Bandemia Status: Acute (8) Thrombocytopenia ICD Code: D69.6 - Thrombocytopenia, unspecified Status: Acute (9) PAD (peripheral artery disease) ICD Code: I73.9 - Peripheral vascular disease, unspecified Status: Chronic (10) Pulmonary hypertension ICD Code: I27.20 - Pulmonary hypertension, unspecified Status: Chronic (11) Cardiomegaly ICD Code: I51.7 - Cardiomegaly Status: Chronic (12) CHF (congestive heart failure) ICD Code: I50.9 - Heart failure, unspecified Status: Chronic Assessment and Plan Plan by systems: Neurologic: Possible anoxic encephalopathy S/P Cardiac Arrest Sedation vacation upon completion of rewarming Neurology consulted Obtain EEG 04/15- CT brain-old lacunar infarct, no MLS, possible normal pressure hydrocephalus Continue stress dose steroids-hydrocortisone Trend ammonia level Respiratory: Acute respiratory failure Maintain O2 saturation greater than 92 % FiO2 currently at 35% Continue bronchodilators every 6 hours scheduled every 2 hours as needed Begin vent weaning trials upon completion of rewarming Ventilator bundle Cardiovascular: S/P PEA arrest Essential hypertension PAD Ischemic cardiomyopathy Cardiomegaly NSTEMI Cardiogenic shock 04/15-hypothermia protocol initiated 04/16-rewarming initiated 04/15-echo EF 20% trace MVR, trace AVR, moderate pulmonary hypertension, moderate left pleural effusion 04/16-patient continues on vasopressin 0.04, and norepinephrine 2 mcgs/min 04/16- cardiology consulted 04/16-arterial Doppler bilateralsevere bilateral lower extremity runoff disease Most likely on reconstructable. Left lower extremity severe diffuse runoff disease. Right SFA occlusion with severe diffuse runoff disease and no viable distal target vessels visualized Renal: MERCEDES Rhabdomyolysis Nephrology was consulted, however discussion with patient's niece patient would not want dialysis. Patient is not a candidate for dialysis per evaluation -- Strict I/Os FEN/GI: Metabolic acidosis Lactic acidemia Hyperammonemia Shock liver-elevated LFT's Continue sodium bicarbonate infusion Continue serial lactate levels-inability of liver to clear lactate secondary to shock liver, and continued ischemia bilateral lower extremities Replete electrolytes per ICU protocol LFTs downtrending, continue to monitor CMP Lactulose 4 times daily Heme/ID: Anemia Thrombocytopenia Bandemia Coagulopathy Blood cultures- NGTD Urine culture- pending Obtain sputum culture Continue empiric antibiotics vancomycin and Zosyn (day 3) S/P 1 cryoprecipitate, 4 units of FFP (04/15), F/U fibrinogen level Hemoglobin 7.2-transfusion 2 units packed red blood cells (04/16) INR 2.3, continue to monitor Endocrine: Glucose monitoring per ICU protocol low dose regimen -- SSI Prophylaxis: GI Prophylaxis Famotidine DVT Prophylaxis -- SCDs No pharmacological DVT prophylaxis in the setting of thrombocytopenia Lines: Right femoral hypothermic cooling catheter, radial arterial line, peripheral IVs 2. Dispo: my billing statement This patient remains critically ill with one or more organ systems which are or may become a threat to life. I have spent in excess of 39 minutes discontinuously in the care and management of this patient. This time is exclusive of procedures, and includes, but is not limited to, evaluation of the patient, review of the medical record, discussions with family, consultants, nursing staff, or respiratory therapy, and documentation in the medical record. The patient remains critically ill, with continued elevation lactic acidemia. Continues on vasopressor support. Prognosis is very guarded. Palliative care has been consulted, to define goals of care. Carlos Enrique Manriquez [phone] Telephone discussion with Ms. Manriquez this morning, next of kin. Provided medical status. Ms. Manriquez stated that "it sounds like he tired and ready to go". I discussed with Ms. Manriquez the process of comfort care measures in detail, as she requested. Plan is for follow-up with neurology regarding neurocognitive status, and further discussion regarding definition of goals of care. All questions answered. Physician Monica Quinones Problem Qualifiers (1) CHF (congestive heart failure): Monica Quinones MD Apr 17, 2018 11:21
[2018-04-17] MEDS: VASOPRESSIN INJ 40 UNITS in SODIUM CHLORIDE 0.9% INJ 98 ML IV SCH (12:35)
[2018-04-17] MEDS: LACTULOSE SYRUP 20 GM/30 ML CUP PO SCH ×3 (12:35→21:31)
--- NOTE | 2018-04-17 12:49 | MB ---
cc: Kenia Bullock MD DATE: 04/17/2018 DATE OF : 1940 AGE: 77. REASON FOR CONSULTATION: Neurocognitive evaluation for possible anoxic encephalopathy, status post pulseless electrical activity arrest. HISTORY OF PRESENT ILLNESS: This is a 77-year-old man, intubated, on ventilator, apparently comes in from a nursing facility status post cardiac arrest. CPR was performed by EMS. Initial rhythm was PEA. He had 2 cycles of CPR and 2 doses of epinephrine and he had return of spontaneous circulation, he lost again his pulse and he went into PEA again, responded again to epinephrine, intubated. PAST MEDICAL HISTORY: There is a history of dementia, heart disease, CHF, hypertension, peripheral arterial disease. MEDICATIONS: Active medicines from his facility include Seroquel, baby aspirin, carvedilol, hydrochlorothiazide, Aricept, Tylenol. SOCIAL HISTORY: Apparently lives in a long-term type facility. FAMILY HISTORY: Unknown. PHYSICAL EXAMINATION: VITAL SIGNS: His temperature is 97.9, pulse 77, respiratory rate 22, blood pressure 122/72, saturating at 97 percent, FiO2 35%. GENERAL: He is not on any sedation. NEUROLOGIC: His pupils are pinpoint. No gaze deviation. No spontaneous roving eye movements. Does not respond to any noxious stimuli. Does not withdraw to painful stimuli. Does not follow any commands. Tone is decreased throughout. His Babinski's are neutral. There is no cough or corneals noted nor gag. Looking at his extremities, they are mottled, cool in both lower extremities. Arterial ultrasound shows severe bilateral lower extremity runoff disease, likely unreconstructable. IMAGING STUDIES: CT Brain: Enlargement of ventricles with dilatation of sulci, possible NPH. Decreased density in the periventricular white matter. No hemorrhage. Chest X-ray: Bibasilar consolidation/atelectasis and/or effusion and cardiomegaly. Abdominal Ultrasound: Diffuse mild ascites, fatty infiltration of liver, renal cyst, gallbladder thickening. Please refer to report. LABORATORY DATA: White count 13, hemoglobin 10.1, platelets 59,000. PT 31.7. Chemistries: GFR is 20, lactic acid 15.7, ALT 3769, AST 8331, ammonia 105, albumin is 2. CK 5736. Tox screen is negative. Urine: 25 WBCs. Culture is done. Microbiology: Light growth of normal respiratory kamryn, no growth in 2 days in the blood. Urine culture is negative. IMPRESSION: This is a 77-year-old man with what looks like probable anoxic encephalopathy. Electrocardiogram was just completed; we will get the report. He has other medical issues ongoing, respiratory failure. His ammonia level is elevated Renal insufficiency as rhabdomyolysis. Looking at the notes, apparently a family member did not want dialysis for him, Nephrology did not think he was a candidate either. Per note, liver function tests are somewhat trending down, likely related to his initial insult arrest. However, looking at his exam and all the other medical issues, his prognosis is poor. PLAN: We will get a formal EEG report and consider repeating a scan of the brain such as an MRI to look for any edema. Continue current care. However, it looks like there is a poor prognosis for neurologic recovery thus far. MD YADY Eubanks/EDA , 12:21 PM , 12:48 PM
--- NOTE | 2018-04-17 13:39 | HHI.NPPN ---
Subjective History of Present Illness 77-year-old white male who suffered cardiac arrest Objective Data Data 04/17/18 04/18/18 19:00 07:00 Intake Total 694 ml Balance 694 ml Intake IV Total 694 ml Vital Signs Date Time Temp Pulse Resp B/P (MAP) Pulse Ox O2 Delivery O2 Flow Rate FiO2 04/17/18 12:35 78 149/64 04/17/18 12:00 35 04/17/18 12:00 97.7 78 20 103/56 (72) 108/56 (73) 04/17/18 10:55 82 98/40 04/17/18 10:21 97 35 04/17/18 10:20 95 45 04/17/18 10:00 76 04/17/18 08:00 35 04/17/18 08:00 77 04/17/18 08:00 97.9 77 22 122/72 (89) 85 129/58 (81) 04/17/18 07:58 95 35 04/17/18 06:00 80 04/17/18 04:00 97.2 74 22 117/64 (81) 78 131/60 (83) 04/17/18 04:00 74 04/17/18 04:00 35 04/17/18 03:09 92 35 04/17/18 03:00 35 04/17/18 02:00 76 04/17/18 00:13 92 35 04/17/18 00:00 97.0 65 24 96/65 (75) 91 107/57 (74) 04/17/18 00:00 35 04/17/18 00:00 65 04/16/18 22:00 65 04/16/18 22:00 100 35 04/16/18 20:40 92 45 04/16/18 20:00 96.6 64 24 96/65 (75) 93 107/56 (73) Manual Cuff/Auscultation 04/16/18 20:00 45 04/16/18 20:00 64 04/16/18 19:00 64 106/56 04/16/18 18:15 87 35 04/16/18 18:00 96.6 64 24 96/64 (75) 92 106/56 (73) 04/16/18 18:00 64 04/16/18 17:19 66 107/56 04/16/18 17:18 66 106/55 6/26/18 17:00 97.5 67 24 95/66 (76) 89 108/56 (73) 04/16/18 16:00 97.2 67 24 93/65 (74) 88 109/58 (75) 04/16/18 16:00 67 04/16/18 15:00 96.6 64 24 98/65 (76) 90 110/58 (75) 04/16/18 14:27 97 35 04/16/18 14:00 66 04/16/18 14:00 96.1 66 0 98/66 (77) 87 113/62 (79) -: 04/17/18 0404 04/17/18 0404 Physical Exam General Appearance: Pale Pulmonary Resp Exam: Decreased Bases Cardiology CV Exam: Arrhythmia Gastrointestinal/Abdomen GI Exam: Soft, Bowel Sounds Absent Integumentary Skin Exam: Cool Extremeties Extremities Exam: Moderate Edema (Ischemic legs no pulse) Neurologic Neuro Exam: Comatose Assessment/Plan Problem List: (1) Acute renal failure ICD Codes: N17.9 - Acute kidney failure, unspecified Status: Acute Plan: Patient is not making urine doing poorly Palliative is on the case Remains Anuric he likely has anoxic brain damage Prolonged CPR EF 20% cardiology following prognosis is poor d/w dr. Quinones hospice consulted Poor outcome I will sign off (2) CAD (coronary artery disease) ICD Codes: I25.10 - Atherosclerotic heart disease of [place] coronary artery without angina pectoris Status: Chronic (3) Elevated bilirubin ICD Codes: R17 - Unspecified jaundice (4) ALZHEIMER'S DISEASE WITH LATE ONSET ICD Codes: G30.1 - ALZHEIMER'S DISEASE WITH LATE ONSET (5) Cardiac arrest ICD Codes: I46.9 - Cardiac arrest, cause unspecified Tone Bowman MD Apr 17, 2018 13:39
--- NOTE | 2018-04-17 14:27 | HHI.HCPN ---
Reason for visit a. To assist with evaluation and management of symptoms including: pain b. To assist medical decision maker(s) with: better understanding of current medical conditions; weighing benefits/burdens of medical treatment options; making medical treatment decisions. . Subjective/Interval History Mr. Fountain is a 77-year-old male skilled nursing resident who presented to [facility] ED status post PEA arrest x 2 with prolonged CPR. He was intubated en route. Upon arrival to the hospital, hypothermia protocol was initiated. Follow-up visit for symptom management and clarification of medical treatment goals. Patient was seen and assessed in the intensive care unit, room 525. No family was present. Patient remains intubated on mechanical ventilation. On pressor support, dobutamine and vasopressin, to maintain map >65. Ischemic changes noted in the bilateral lower extremities that are cool to touch and mottled from the toes to the mid calf. Unable to palpate pedal pulses. Arterial Doppler reveals severe bilateral lower extremity disease, appears non-reconstructible , however vascular surgery has been consult for review and evaluation. Follow- up chest x-ray this morning 04/17/2018 showing bibasilar areas of consolidation/ atelectasis and/or effusion. Echocardiogram on 04/15/2018 showing severely reduced left ventricular systolic function with an estimated EF fraction <20%. Cardiology following. WBC: 13.0, hemoglobin 10.1, hematocrit 30.4, platelets 59, neutrophils 90.3%, sodium 141, potassium 4.7, chloride 98, glucose 125, calcium 5.9, prot corrected calcium 7.3, phosphorus 7.4, magnesium 1.8, total bilirubin 4.0, AST 8331, ALT 3769, alkaline phosphatase 190, ammonia 105, total creatine kinase 5736, CK-MB 89.1, troponin IV 0.2, albumin 2.0, lactic acid 5.7 Patient remains anuric. Creatinine has increased from 1.63 on 04/15/16 to 3.05 today 04/17/18. Family does not was dialysis; nephrology has signed off. Neurology was consulted to evaluate patient for possible anoxic encephalopathy status post PEA arrest. EEG and repeat MRI of the brain pending. . Objective Vital Signs Date Time Temp Pulse Resp B/P (MAP) Pulse Ox O2 Delivery O2 Flow Rate FiO2 04/17/18 12:35 78 149/64 6/27/18 12:00 35 04/17/18 12:00 97.7 78 20 103/56 (72) 108/56 (73) 04/17/18 10:55 82 98/40 04/17/18 10:21 97 35 04/17/18 10:20 95 45 04/17/18 10:00 76 04/17/18 08:00 35 04/17/18 08:00 77 04/17/18 08:00 97.9 77 22 122/72 (89) 85 129/58 (81) 04/17/18 07:58 95 35 04/17/18 06:00 80 04/17/18 04:00 97.2 74 22 117/64 (81) 78 131/60 (83) 04/17/18 04:00 74 04/17/18 04:00 35 04/17/18 03:09 92 35 04/17/18 03:00 35 04/17/18 02:00 76 04/17/18 00:13 92 35 04/17/18 00:00 97.0 65 24 96/65 (75) 91 107/57 (74) 04/17/18 00:00 35 04/17/18 00:00 65 04/16/18 22:00 65 04/16/18 22:00 100 35 04/16/18 20:40 92 45 04/16/18 20:00 96.6 64 24 96/65 (75) 93 107/56 (73) Manual Cuff/Auscultation 04/16/18 20:00 45 04/16/18 20:00 64 04/16/18 19:00 64 106/56 04/16/18 18:15 87 35 04/16/18 18:00 96.6 64 24 96/64 (75) 92 106/56 (73) 04/16/18 18:00 64 04/16/18 17:19 66 107/56 04/16/18 17:18 66 106/55 04/16/18 17:00 97.5 67 24 95/66 (76) 89 108/56 (73) 04/16/18 16:00 97.2 67 24 93/65 (74) 88 109/58 (75) 04/16/18 16:00 67 04/16/18 15:00 96.6 64 24 98/65 (76) 90 110/58 (75) 04/16/18 14:27 97 35 Intake & Output 04/17/18 04/17/18 07:00 19:00 Intake Total 1932 ml 694 ml Output Total 10 ml Balance 1922 ml 694 ml Intake IV Total 1932 ml 694 ml Output Urine Total 10 ml . Physical Exam CONSTITUTIONAL/GENERAL: This is an elderly, male patient currently intubated on mechanical ventilation. TUBES/LINES/DRAINS: CVL, PIV x 4, horton, ETT, arterial line SKIN: Jaundice. Ecchymoses on upper extremities. Multiple skin tear on BUE. Not diaphoretic. Chronic stasis changes over bilateral lower extremities HEAD: Atraumatic. Normocephalic. EYES: Pupils round and reactive, sluggish. No injection or drainage. ENT: Nose without bleeding or purulent drainage. Unable to visualize throat secondary to tubes. NECK: Trachea midline. Supple, nontender. No palpable thyroid enlargement or nodularity. CARDIOVASCULAR: Regular rate and rhythm without murmurs. Bilateral lower extremities are cool to touch and mottled, unable to palpate pedal pulses. RESPIRATORY/CHEST: Intubated on mechanical ventilation. Coarse air exchange. GASTROINTESTINAL: Abdomen soft, non-tender, nondistended. No guarding. Bowel sounds present. GENITOURINARY: Without palpable bladder distension. Horton catheter in place. MUSCULOSKELETAL: Extremities are edematous. LYMPHATICS: No palpable cervical or supraclavicular adenopathy. NEUROLOGICAL: Sedated. Unresponsive. Does not withdraw to noxious stimuli. PSYCHIATRIC: Unable to assess given current clinical condition. . Diagnostic Tests Laboratory Laboratory Tests Test 04/15/18 01:35 04/15/18 02:05 04/15/18 02:30 04/15/18 03:00 White Blood Count 7.5 TH/MM3 (4.0-11.0) Red Blood Count 3.27 MIL/MM3 (4.50-5.90) Hemoglobin 10.0 GM/DL (13.0-17.0) Hematocrit 33.6 % (39.0-51.0) Mean Corpuscular Volume 102.8 FL (80.0-100.0) Mean Corpuscular Hemoglobin 30.7 PG (27.0-34.0) Mean Corpuscular Hemoglobin Concent 29.9 % (32.0-36.0) Red Cell Distribution Width 18.2 % (11.6-17.2) Platelet Count 120 TH/MM3 (150-450) Mean Platelet Volume 9.4 FL (7.0-11.0) Neutrophils (%) (Auto) 80.4 % (16.0-70.0) Lymphocytes (%) (Auto) 11.9 % (9.0-44.0) Monocytes (%) (Auto) 7.0 % (0.0-8.0) Eosinophils (%) (Auto) 0.2 % (0.0-4.0) Basophils (%) (Auto) 0.5 % (0.0-2.0) Neutrophils # (Auto) 6.1 TH/MM3 (1.8-7.7) Lymphocytes # (Auto) 0.9 TH/MM3 (1.0-4.8) Monocytes # (Auto) 0.5 TH/MM3 (0-0.9) Eosinophils # (Auto) 0.0 TH/MM3 (0-0.4) Basophils # (Auto) 0.0 TH/MM3 (0-0.2) CBC Comment AUTO DIFF Differential Total Cells Counted 100 Neutrophils % (Manual) 44 % (16-70) Band Neutrophils % 37 % (0-6) Lymphocytes % 10 % (9-44) Monocytes % 4 % (0-8) Neutrophils # (Manual) 6.5 TH/MM3 (1.8-7.7) Metamyelocytes 4 % (0-1) Myelocytes 1 % (0-0) Differential Comment FINAL DIFF MANUAL Platelet Estimate LOW (NORMAL) Platelet Morphology Comment ENLARGED (NORMAL) Prothrombin Time 25.5 SEC (9.8-11.6) Prothromb Time International Ratio 2.5 RATIO Activated Partial Thromboplast Time 61.2 SEC (24.3-30.1) Lactic Acid Level 11.9 mmol/L (0.4-2.0) Blood Gas Puncture Site RT FEMORAL RT FEMORAL Blood Gas Patient Temperature 98.6 98.6 Blood Gas HCO3 9 mmol/L (22-26) 8 mmol/L (22-26) Blood Gas Base Excess -20.3 mmol/L (-2-2) -19.1 mmol/L (-2-2) Blood Gas Oxygen Saturation 97 % (90-100) 97 % (90-100) Arterial Blood pH 7.01 (7.380-7.420) 7.12 (7.380-7.420) Arterial Blood Partial Pressure CO2 35 mmHg (38-42) 27 mmHg (38-42) Arterial Blood Partial Pressure O2 206 mmHG (61-120) 183 mmHG (61-120) Arterial Blood Oxygen Content 14.4 Vol % (12.0-20.0) 13.8 Vol % (12.0-20.0) Arterial Blood Carboxyhemoglobin 0.2 % (0-4) 0.6 % (0-4) Arterial Blood Methemoglobin 0.5 % (0-2) 0.7 % (0-2) Blood Gas Hemoglobin 10.2 G/DL (12.0-16.0) 9.9 G/DL (12.0-16.0) Oxygen Delivery Device VENTILATOR VENTILATOR Blood Gas Ventilator Setting Blood Gas Inspired Oxygen 100 % 70 % Urine Color Kristy (YELLW/STRAW) Urine Turbidity TURBID (CLEAR) Urine pH 5.0 (5.0-8.5) Urine Specific Warren 1.024 (1.002-1.035) Urine Protein >=500 mg/dL (NEG-TRACE) Urine Glucose (UA) NEG mg/dL (NEG) Urine Ketones NEG mg/dL (NEG) Urine Occult Blood MOD (NEG) Urine Nitrite NEG (NEG) Urine Bilirubin NEG (NEG) Urine Urobilinogen 4.0 OR GREATER mg/dL (LESS Urine Leukocyte Esterase NEG (NEG) Urine RBC 56 /hpf (0-3) Urine WBC 25 /hpf (0-5) Urine Squamous Epithelial Cells 2 /hpf (0-5) Urine Bacteria MANY /hpf (NONE) Urine Hyaline Casts 32 /lpf (RARE) Urine Granular Casts 25 /lpf (NONE) Urine Mucus FEW /lpf (OCC) Urine Sperm RARE (NONE) Microscopic Urinalysis Comment CATH-CULTURE IND Urine Opiates Screen NEG (NEG) Urine Barbiturates Screen NEG (NEG) Urine Amphetamines Screen NEG (NEG) Urine Benzodiazepines Screen NEG (NEG) Urine Cocaine Screen NEG (NEG) Urine Cannabinoids Screen NEG (NEG) Test 04/15/18 04:15 04/15/18 04:17 04/15/18 06:17 04/15/18 09:02 Lactic Acid Level 12.6 mmol/L (0.4-2.0) Blood Urea Nitrogen 25 MG/DL (7-18) Creatinine 1.63 MG/DL (0.60-1.30) Random Glucose 288 MG/DL (74-106) Total Protein 4.4 GM/DL (6.4-8.2) Albumin 1.9 GM/DL (3.4-5.0) Calcium Level 6.3 MG/DL (8.5-10.1) Phosphorus Level 7.2 MG/DL (2.5-4.9) Magnesium Level 2.2 MG/DL (1.5-2.5) Alkaline Phosphatase 240 U/L (45-117) Aspartate Amino Transf (AST/SGOT) 7768 U/L (15-37) Alanine Aminotransferase (ALT/SGPT) 3281 U/L (12-78) Total Bilirubin 1.4 MG/DL (0.2-1.0) Sodium Level 138 MEQ/L (136-145) Potassium Level 5.6 MEQ/L (3.5-5.1) Chloride Level 107 MEQ/L (98-107) Carbon Dioxide Level 10.0 MEQ/L (21.0-32.0) Anion Gap 21 MEQ/L (5-15) Estimat Glomerular Filtration Rate 41 ML/MIN (>89) Protein Corrected Calcium 7.6 MG/DL (8.5-10.1) Ammonia 77 MCMOL/L (11-32) Troponin I 0.51 NG/ML (0.02-0.05) Blood Gas Puncture Site ART LINE ART LINE Blood Gas Patient Temperature 98.6 98.6 Blood Gas HCO3 10 mmol/L (22-26) 16 mmol/L (22-26) Blood Gas Base Excess -18.2 mmol/L (-2-2) -9.7 mmol/L (-2-2) Blood Gas Oxygen Saturation 95 % (90-100) 96 % (90-100) Arterial Blood pH 7.10 (7.380-7.420) 7.25 (7.380-7.420) Arterial Blood Partial Pressure CO2 32 mmHg (38-42) 39 mmHg (38-42) Arterial Blood Partial Pressure O2 137 mmHg (61-120) 136 mmHg (61-120) Arterial Blood Oxygen Content 14.0 Vol % (12.0-20.0) 13.6 Vol % (12.0-20.0) Arterial Blood Carboxyhemoglobin 0.3 % (0-4) 0.6 % (0-4) Arterial Blood Methemoglobin 1.4 % (0-2) 1.2 % (0-2) Blood Gas Hemoglobin 10.3 G/DL (12.0-16.0) 9.8 G/DL (12.0-16.0) Oxygen Delivery Device VENTILATOR VENTILATOR Blood Gas Ventilator Setting PRVC/ AC Blood Gas Inspired Oxygen 50 % 50 % Test 04/15/18 09:36 04/15/18 12:30 04/15/18 13:50 04/15/18 20:00 Nasal Screen MRSA (PCR) MRSA NOT DETECTED (NOT Troponin I 0.96 NG/ML (0.02-0.05) White Blood Count 9.5 TH/MM3 (4.0-11.0) Red Blood Count 3.18 MIL/MM3 (4.50-5.90) Hemoglobin 9.5 GM/DL (13.0-17.0) Hematocrit 30.8 % (39.0-51.0) Mean Corpuscular Volume 96.7 FL (80.0-100.0) Mean Corpuscular Hemoglobin 29.8 PG (27.0-34.0) Mean Corpuscular Hemoglobin Concent 30.8 % (32.0-36.0) Red Cell Distribution Width 17.3 % (11.6-17.2) Platelet Count 114 TH/MM3 (150-450) Mean Platelet Volume 9.3 FL (7.0-11.0) Neutrophils (%) (Auto) 90.1 % (16.0-70.0) Lymphocytes (%) (Auto) 3.2 % (9.0-44.0) Monocytes (%) (Auto) 6.4 % (0.0-8.0) Eosinophils (%) (Auto) 0.0 % (0.0-4.0) Basophils (%) (Auto) 0.3 % (0.0-2.0) Neutrophils # (Auto) 8.5 TH/MM3 (1.8-7.7) Lymphocytes # (Auto) 0.3 TH/MM3 (1.0-4.8) Monocytes # (Auto) 0.6 TH/MM3 (0-0.9) Eosinophils # (Auto) 0.0 TH/MM3 (0-0.4) Basophils # (Auto) 0.0 TH/MM3 (0-0.2) CBC Comment AUTO DIFF Differential Total Cells Counted 100 Neutrophils % (Manual) 68 % (16-70) Band Neutrophils % 20 % (0-6) Lymphocytes % 6 % (9-44) Monocytes % 5 % (0-8) Neutrophils # (Manual) 8.5 TH/MM3 (1.8-7.7) Metamyelocytes 1 % (0-1) Differential Comment FINAL DIFF MANUAL Platelet Estimate LOW (NORMAL) Platelet Morphology Comment NORMAL (NORMAL) Ovalocytes 1+ (NORMAL) Prothrombin Time 39.4 SEC (9.8-11.6) Prothromb Time International Ratio 3.9 RATIO Fibrinogen 69 mg/dL (227-377) Blood Urea Nitrogen 30 MG/DL (7-18) Creatinine 2.06 MG/DL (0.60-1.30) Random Glucose 175 MG/DL (74-106) Total Protein 4.6 GM/DL (6.4-8.2) Albumin 2.2 GM/DL (3.4-5.0) Calcium Level 6.6 MG/DL (8.5-10.1) Alkaline Phosphatase 255 U/L (45-117) Aspartate Amino Transf (AST/SGOT) 01364 U/L (15-37) Alanine Aminotransferase (ALT/SGPT) 4549 U/L (12-78) Total Bilirubin 2.7 MG/DL (0.2-1.0) Sodium Level 144 MEQ/L (136-145) Potassium Level 4.7 MEQ/L (3.5-5.1) Chloride Level 107 MEQ/L (98-107) Carbon Dioxide Level 17.8 MEQ/L (21.0-32.0) Anion Gap 19 MEQ/L (5-15) Estimat Glomerular Filtration Rate 32 ML/MIN (>89) Lactic Acid Level 12.3 mmol/L (0.4-2.0) Protein Corrected Calcium 7.9 MG/DL (8.5-10.1) Blood Gas Puncture Site ART LINE ART LINE Blood Gas Patient Temperature 98.6 98.6 Blood Gas HCO3 14 mmol/L (22-26) 12 mmol/L (22-26) Blood Gas Base Excess -11.3 mmol/L (-2-2) -13.1 mmol/L (-2-2) Blood Gas Oxygen Saturation 97 % (90-100) 96 % (90-100) Arterial Blood pH 7.30 (7.380-7.420) 7.29 (7.380-7.420) Arterial Blood Partial Pressure CO2 29 mmHg (38-42) 26 mmHg (38-42) Arterial Blood Partial Pressure O2 171 mmHg (61-120) 152 mmHg (61-120) Arterial Blood Oxygen Content 12.6 Vol % (12.0-20.0) 11.0 Vol % (12.0-20.0) Arterial Blood Carboxyhemoglobin 0.8 % (0-4) 1.0 % (0-4) Arterial Blood Methemoglobin 1.2 % (0-2) 1.5 % (0-2) Blood Gas Hemoglobin 8.9 G/DL (12.0-16.0) 7.9 G/DL (12.0-16.0) Oxygen Delivery Device VENTILATOR VENTILATOR Blood Gas Ventilator Setting PRVC/AC Blood Gas Inspired Oxygen 40 % 35 % Test 04/15/18 21:00 04/16/18 04:00 04/16/18 06:19 04/16/18 08:51 Blood Urea Nitrogen 34 MG/DL (7-18) 35 MG/DL (7-18) Creatinine 2.16 MG/DL (0.60-1.30) 2.41 MG/DL (0.60-1.30) Random Glucose 189 MG/DL (74-106) 157 MG/DL (74-106) Total Protein 5.2 GM/DL (6.4-8.2) 4.9 GM/DL (6.4-8.2) Calcium Level 6.7 MG/DL (8.5-10.1) 6.3 MG/DL (8.5-10.1) Magnesium Level 2.3 MG/DL (1.5-2.5) 2.1 MG/DL (1.5-2.5) Sodium Level 141 MEQ/L (136-145) 141 MEQ/L (136-145) Potassium Level 4.8 MEQ/L (3.5-5.1) 4.7 MEQ/L (3.5-5.1) Chloride Level 103 MEQ/L (98-107) 101 MEQ/L (98-107) Carbon Dioxide Level 12.3 MEQ/L (21.0-32.0) 14.6 MEQ/L (21.0-32.0) Anion Gap 26 MEQ/L (5-15) 25 MEQ/L (5-15) Estimat Glomerular Filtration Rate 30 ML/MIN (>89) 26 ML/MIN (>89) Protein Corrected Calcium 7.7 MG/DL (8.5-10.1) 7.4 MG/DL (8.5-10.1) White Blood Count 8.4 TH/MM3 (4.0-11.0) Red Blood Count 2.36 MIL/MM3 (4.50-5.90) Hemoglobin 7.2 GM/DL (13.0-17.0) Hematocrit 22.8 % (39.0-51.0) Mean Corpuscular Volume 96.3 FL (80.0-100.0) Mean Corpuscular Hemoglobin 30.3 PG (27.0-34.0) Mean Corpuscular Hemoglobin Concent 31.5 % (32.0-36.0) Red Cell Distribution Width 17.5 % (11.6-17.2) Platelet Count 55 TH/MM3 (150-450) Mean Platelet Volume 9.7 FL (7.0-11.0) Neutrophils (%) (Auto) 88.5 % (16.0-70.0) Lymphocytes (%) (Auto) 5.7 % (9.0-44.0) Monocytes (%) (Auto) 4.8 % (0.0-8.0) Eosinophils (%) (Auto) 0.9 % (0.0-4.0) Basophils (%) (Auto) 0.1 % (0.0-2.0) Neutrophils # (Auto) 7.4 TH/MM3 (1.8-7.7) Lymphocytes # (Auto) 0.5 TH/MM3 (1.0-4.8) Monocytes # (Auto) 0.4 TH/MM3 (0-0.9) Eosinophils # (Auto) 0.1 TH/MM3 (0-0.4) Basophils # (Auto) 0.0 TH/MM3 (0-0.2) CBC Comment AUTO DIFF Differential Total Cells Counted 100 Neutrophils % (Manual) 57 % (16-70) Band Neutrophils % 34 % (0-6) Lymphocytes % 5 % (9-44) Monocytes % 4 % (0-8) Neutrophils # (Manual) 7.6 TH/MM3 (1.8-7.7) Nucleated Red Blood Cells 1 /100 WBC (0-0) Differential Comment FINAL DIFF MANUAL Platelet Estimate LOW (NORMAL) Platelet Morphology Comment NORMAL (NORMAL) Ovalocytes 1+ (NORMAL) Acanthocytes OCC (NORMAL) Keratocytes OCC (NORMAL) Prothrombin Time 23.2 SEC (9.8-11.6) Prothromb Time International Ratio 2.3 RATIO Activated Partial Thromboplast Time 35.4 SEC (24.3-30.1) Albumin 2.4 GM/DL (3.4-5.0) Phosphorus Level 7.5 MG/DL (2.5-4.9) Alkaline Phosphatase 198 U/L (45-117) Aspartate Amino Transf (AST/SGOT) 86138 U/L (15-37) Alanine Aminotransferase (ALT/SGPT) 3813 U/L (12-78) Total Bilirubin 3.4 MG/DL (0.2-1.0) Lactic Acid Level 15.9 mmol/L (0.4-2.0) Random Vancomycin Level 9.9 COMMENT Blood Gas Puncture Site ART LINE SANDRA Blood Gas Patient Temperature 98.6 98.6 Blood Gas HCO3 14 mmol/L (22-26) 15 mmol/L (22-26) Blood Gas Base Excess -10.9 mmol/L (-2-2) -8.7 mmol/L (-2-2) Blood Gas Oxygen Saturation 97 % (90-100) 97 % (90-100) Arterial Blood pH 7.33 (7.380-7.420) 7.40 (7.380-7.420) Arterial Blood Partial Pressure CO2 27 mmHg (38-42) 25 mmHg (38-42) Arterial Blood Partial Pressure O2 174 mmHg (61-120) 199 mmHg (61-120) Arterial Blood Oxygen Content 9.7 Vol % (12.0-20.0) 10.2 Vol % (12.0-20.0) Arterial Blood Carboxyhemoglobin 1.1 % (0-4) 1.1 % (0-4) Arterial Blood Methemoglobin 1.3 % (0-2) 1.5 % (0-2) Blood Gas Hemoglobin 6.8 G/DL (12.0-16.0) 7.1 G/DL (12.0-16.0) Oxygen Delivery Device VENTILATOR VENTILATOR Blood Gas Ventilator Setting PRVC/ AC SEE COMMENTS Blood Gas Inspired Oxygen 35 % 35 % Test 04/16/18 09:10 04/16/18 21:35 04/17/18 04:04 04/17/18 04:05 Fibrinogen 160 mg/dL (227-377) Blood Gas Puncture Site ART LINE Blood Gas Patient Temperature 98.6 Blood Gas HCO3 12 mmol/L (22-26) Blood Gas Base Excess -12.0 mmol/L (-2-2) Blood Gas Oxygen Saturation 97 % (90-100) Arterial Blood pH 7.39 (7.380-7.420) Arterial Blood Partial Pressure CO2 20 mmHg (38-42) Arterial Blood Partial Pressure O2 205 mmHg (61-120) Arterial Blood Oxygen Content 15.1 Vol % (12.0-20.0) Arterial Blood Carboxyhemoglobin 0.9 % (0-4) Arterial Blood Methemoglobin 1.4 % (0-2) Blood Gas Hemoglobin 10.8 G/DL (12.0-16.0) Oxygen Delivery Device VENTILATOR Blood Gas Ventilator Setting PRVC / AC / Blood Gas Inspired Oxygen 45 % White Blood Count 13.0 TH/MM3 (4.0-11.0) Red Blood Count 3.27 MIL/MM3 (4.50-5.90) Hemoglobin 10.1 GM/DL (13.0-17.0) Hematocrit 30.4 % (39.0-51.0) Mean Corpuscular Volume 92.9 FL (80.0-100.0) Mean Corpuscular Hemoglobin 30.9 PG (27.0-34.0) Mean Corpuscular Hemoglobin Concent 33.3 % (32.0-36.0) Red Cell Distribution Width 16.4 % (11.6-17.2) Platelet Count 59 TH/MM3 (150-450) Mean Platelet Volume 11.3 FL (7.0-11.0) Neutrophils (%) (Auto) 90.3 % (16.0-70.0) Lymphocytes (%) (Auto) 3.7 % (9.0-44.0) Monocytes (%) (Auto) 2.7 % (0.0-8.0) Eosinophils (%) (Auto) 2.0 % (0.0-4.0) Basophils (%) (Auto) 1.3 % (0.0-2.0) Neutrophils # (Auto) 11.7 TH/MM3 (1.8-7.7) Lymphocytes # (Auto) 0.5 TH/MM3 (1.0-4.8) Monocytes # (Auto) 0.3 TH/MM3 (0-0.9) Eosinophils # (Auto) 0.3 TH/MM3 (0-0.4) Basophils # (Auto) 0.2 TH/MM3 (0-0.2) CBC Comment AUTO DIFF Differential Total Cells Counted 100 Neutrophils % (Manual) 44 % (16-70) Band Neutrophils % 48 % (0-6) Lymphocytes % 1 % (9-44) Neutrophils # (Manual) 12.9 TH/MM3 (1.8-7.7) Metamyelocytes 7 % (0-1) Nucleated Red Blood Cells 5 /100 WBC (0-0) Differential Comment FINAL DIFF MANUAL Toxic Vacuolation PRESENT (NONE SEEN) Dohle Bodies PRESENT (NONE SEEN) Platelet Estimate LOW (NORMAL) Platelet Morphology Comment ENLARGED (NORMAL) Prothrombin Time 31.7 SEC (9.8-11.6) Prothromb Time International Ratio 3.1 RATIO Blood Urea Nitrogen 39 MG/DL (7-18) Creatinine 3.05 MG/DL (0.60-1.30) Random Glucose 125 MG/DL (74-106) Total Protein 4.2 GM/DL (6.4-8.2) Albumin 2.0 GM/DL (3.4-5.0) Calcium Level 5.9 MG/DL (8.5-10.1) Phosphorus Level 7.4 MG/DL (2.5-4.9) Magnesium Level 1.8 MG/DL (1.5-2.5) Alkaline Phosphatase 190 U/L (45-117) Aspartate Amino Transf (AST/SGOT) 8331 U/L (15-37) Alanine Aminotransferase (ALT/SGPT) 3769 U/L (12-78) Total Bilirubin 4.0 MG/DL (0.2-1.0) Sodium Level 141 MEQ/L (136-145) Potassium Level 4.7 MEQ/L (3.5-5.1) Chloride Level 98 MEQ/L (98-107) Carbon Dioxide Level 16.3 MEQ/L (21.0-32.0) Anion Gap 27 MEQ/L (5-15) Estimat Glomerular Filtration Rate 20 ML/MIN (>89) Protein Corrected Calcium 7.3 MG/DL (8.5-10.1) Total Creatine Kinase 5736 U/L (39-308) Creatine Kinase MB 89.1 NG/ML (0.5-3.6) Creatine Kinase MB % 1.6 % (0.0-4.0) Random Vancomycin Level 26.2 COMMENT Lactic Acid Level 15.7 mmol/L (0.4-2.0) Ammonia 105 MCMOL/L (11-32) Test 04/17/18 10:18 Blood Gas Puncture Site SANDRA Blood Gas Patient Temperature 98.6 Blood Gas HCO3 19 mmol/L (22-26) Blood Gas Base Excess -3.4 mmol/L (-2-2) Blood Gas Oxygen Saturation 97 % (90-100) Arterial Blood pH 7.50 (7.380-7.420) Arterial Blood Partial Pressure CO2 25 mmHg (38-42) Arterial Blood Partial Pressure O2 168 mmHg (61-120) Arterial Blood Oxygen Content 14.6 Vol % (12.0-20.0) Arterial Blood Carboxyhemoglobin 1.0 % (0-4) Arterial Blood Methemoglobin 1.3 % (0-2) Blood Gas Hemoglobin 10.4 G/DL (12.0-16.0) Oxygen Delivery Device VENTILATOR Blood Gas Ventilator Setting SEE COMMENTS Blood Gas Inspired Oxygen 35 % Result Diagram: 04/17/18 0404 04/17/18 0404 Microbiology Microbiology Date/Time Source Procedure Growth Status 04/15/18 21:00 Blood Line Aerobic Blood Culture - Preliminary NO GROWTH IN 2 DAYS Resulted 04/15/18 21:00 Blood Line Anaerobic Blood Culture - Preliminary NO GROWTH IN 2 DAYS Resulted 04/15/18 01:35 Blood Peripheral Aerobic Blood Culture - Preliminary NO GROWTH IN 2 DAYS Resulted 04/15/18 01:35 Blood Peripheral Anaerobic Blood Culture - Preliminary NO GROWTH IN 2 DAYS Resulted 04/15/18 01:20 Blood Peripheral Aerobic Blood Culture - Preliminary NO GROWTH IN 2 DAYS Resulted 04/15/18 01:20 Blood Peripheral Anaerobic Blood Culture - Preliminary NO GROWTH IN 2 DAYS Resulted 04/16/18 13:24 Sputum Endotracheal Gram Stain - Final Resulted 04/16/18 13:24 Sputum Endotracheal Sputum Culture - Preliminary LIGHT GROWTH NORMAL RESPIRATORY ALEXSANDRA... Resulted 04/15/18 02:30 Urine Catheterized Urine Urine Culture - Final NO GROWTH IN 48 HOURS. Complete Procedures 04/15/2018: Intubation (en route) 04/15/2018: NGT placed 04/15/2018: Central line placement . Assessment and Plan Disease Oriented Problem List: (1) Cardiac arrest (2) Major neurocognitive disorder due to Alzheimer's disease, probable, without behavioral disturbance (3) Acute renal failure (4) CAD (coronary artery disease) (5) Elevated bilirubin Symptom Scale: (1) Pain 0-10 Scale: Unable to quantify Pertinent Non-Medical Issues Psychosocial:Patient is originally from [place], [place]. He was [facility] Acted on 02/26/2018 secondary to self neglecting behavior and disorganization. Patient was homeless at that time; he has been living at [facility] since being discharged on 03/13/2018. Spiritual: Unknown at this time. Legal: Per [place] statutes, in the absence of written advanced directives healthcare proxy decision making would fall to the patient's niece. Ethical issues impacting care: No known ethical issues impacting care at this time. . Important Contacts Kathryn Manriquez, niece: [phone] . Prognosis 77-year-old male status post cardiac arrest who was started on hypothermia protocol; now with multisystem organ dysfunction. Multisystem organ dysfunction. Overall prognosis is poor. . Code Status: Full Code Plan * ALTERNATE CODE * Decision-making. Patient currently does not have capacity for medical decision -making. He has a niece (Kathryn Manriquez) who is acting in the role of healthcare proxy decision-maker; no other family has been identified. * Palliative care spoke with the patient's niece on 04/16/18. She understands the patient will likely not survive this hospitalization. We discussed the process of withdrawing artificial life support. She is not ready to make that decision at this time but will reconsider in a few days as she does not want to prolong his suffering indefinitely * Discussed patient with RN (Nataly). * Symptom management-pain: Multifactoral. Status post CPR 2; suspected infection, poor circulation, intubation, invasive lines, immobility. Currently sedated on fentanyl and midazolam, PRN morphine is available but has not been required. * Palliative care will continue to follow this patient throughout his hospitalization to establish trust, assist with symptom management and clarification of medical treatment goals. . Attestation To help prompt me to consider important information that might be impacting today's encounter and assessment, information from prior notes written by myself or my colleagues may have been "brought forward" into today's note. My signature on this note, however, is an attestation that I personally performed the exam, history, and/or decision-making noted today, and, unless otherwise indicated, the interactions with patient, family, and staff as well as the review of records all occurred today. I also attest that the listed assessment and stated plan reflect my best clinical judgment today based on the combination of historical information, prior notes, and today's exam/ interactions. When time spent is documented, it refers only to time spent today by the signer, or if indicated, combined time spent today by collaborating physician/nurse practitioner. . Winifred Freeman Apr 17, 2018 14:27
--- NOTE | 2018-04-17 16:18 | PD.CARD.PN ---
Subjective Subjective Remarks Intubated, on the vent, unresponsive Objective Medications Current Medications Medications (Trade) Dose Ordered Sig/Aure Route Start Time Stop Time Status Last Admin (Ecotrin Ec) 81 mg DAILY PO 04/15/18 09:00 Future Hold 04/15/18 08:58 (SEROquel) 50 mg DAILY@1200,1800 PO 04/15/18 12:00 Future Hold 04/15/18 17:41 (NS Flush) 2 ml UNSCH PRN IV FLUSH 04/15/18 04:00 (NS Flush) 2 ml BID IV FLUSH 04/15/18 09:00 04/17/18 08:47 (Tylenol) 650 mg Q6H PRN PO 04/15/18 04:00 (Morphine Inj) 2 mg Q2H PRN IV PUSH 04/15/18 04:00 (Ativan Inj) 1 mg Q1H PRN IV PUSH 04/15/18 04:00 (Tears Naturale Opth Soln) 1 drop TID EACH EYE 04/15/18 09:00 04/17/18 12:36 (Zofran Odt) 4 mg Q6H PRN PO 04/15/18 04:00 ([facility] [place] Nursing Information) 1 Q361D XX 04/15/18 04:00 (Chlorhexidine 2% Cloth) 3 pack Taper DAILY@04 TOP 04/15/18 04:00 04/11/19 03:59 04/17/18 03:02 (Chlorhexidine 2% Cloth) 3 pack UNSCH PRN TOP 04/15/18 04:00 (Mary-Colace) 1 tab BID PO 04/15/18 09:00 04/17/18 08:46 (Milk Of Magnesia Liq) 30 ml Q12H PRN PO 04/15/18 04:00 (Senokot) 17.2 mg Q12H PRN PO 04/15/18 04:00 (Dulcolax Supp) 10 mg DAILY PRN RECTAL 04/15/18 04:00 (Peridex 0.12% Liq) 15 ml BID@08,20 MT 04/15/18 08:00 04/17/18 08:47 (Ativan Inj) 1 mg Q1H PRN IV PUSH 04/15/18 04:00 (Demerol Inj) 25 mg Q2H PRN IV PUSH 04/15/18 04:00 (Lacrilube Opht Oint) 1 applic Q4H PRN EACH EYE 04/15/18 04:00 Miscellaneous Information 0 ml @ 0 mls/hr UNSCH IV 04/15/18 04:00 (Brethine Inj) 1 mg UNSCH PRN SQ 04/15/18 04:00 Norepinephrine Bitartrate 4 mg/ Sodium Chloride 250 ml @ 7.5 mls/hr TITRATE PRN IV 04/15/18 04:15 04/16/18 09:31 (D50w (Vial) Inj) 50 ml UNSCH PRN IV PUSH 04/15/18 05:00 (Glucagon Inj) 1 mg UNSCH PRN OTHER 04/15/18 05:00 (NovoLIN R SUPPLEMENTAL SCALE) 1 ACHS SLIDING SCALE SQ 04/15/18 08:00 Sodium Bicarbonate 150 meq/Dextrose 1,150 ml @ 125 mls/hr Q9H12M IV 04/15/18 05:00 04/17/18 10:30 Vasopressin 40 units/Sodium Chloride 100 ml @ 6 mls/hr [id number] IV 04/15/18 08:30 04/17/18 12:35 Pharmacy Profile Note 0 ml @ 0 mls/hr UNSCH OTHER 04/15/18 14:15 Piperacillin Sod/ Tazobactam Sod 50 ml @ 100 mls/hr Q6H IV 04/15/18 15:00 04/17/18 14:34 (SoluCORTEF INJ) 100 mg Q6HR IV PUSH 04/15/18 14:15 04/17/18 12:35 (Duoneb Neb) 1 ampule Q6HR NEB NEB 04/16/18 10:00 04/17/18 15:27 (Duoneb Neb) 1 ampule Q2HR NEB PRN NEB 04/16/18 09:45 (Pepcid Inj) 10 mg Q12HR IV PUSH 04/16/18 21:00 04/17/18 08:46 Dobutamine HCl 1000 mg/Dextrose 250 ml @ 5.38 mls/hr TITRATE PRN IV 04/16/18 23:30 04/17/18 00:40 (Lactulose Liq) 30 ml QID PO 04/17/18 13:00 04/17/18 12:35 Vital Signs / I&O Vital Signs Date Time Temp Pulse Resp B/P (MAP) Pulse Ox O2 Delivery O2 Flow Rate FiO2 04/17/18 16:00 35 04/17/18 16:00 75 04/17/18 16:00 98.1 75 0 115/69 (84) 77 130/66 (87) 04/17/18 15:24 95 35 04/17/18 14:00 74 04/17/18 13:45 97 35 04/17/18 12:35 78 149/64 04/17/18 12:00 35 04/17/18 12:00 97.7 78 20 103/56 (72) 108/56 (73) 04/17/18 12:00 78 04/17/18 10:55 82 98/40 04/17/18 10:21 97 35 04/17/18 10:20 95 45 04/17/18 10:00 76 04/17/18 08:00 35 04/17/18 08:00 77 04/17/18 08:00 97.9 77 22 122/72 (89) 85 129/58 (81) 04/17/18 07:58 95 35 04/17/18 06:00 80 04/17/18 04:00 97.2 74 22 117/64 (81) 78 131/60 (83) 04/17/18 04:00 74 04/17/18 04:00 35 04/17/18 03:09 92 35 04/17/18 03:00 35 04/17/18 02:00 76 04/17/18 00:13 92 35 04/17/18 00:00 97.0 65 24 96/65 (75) 91 107/57 (74) 04/17/18 00:00 35 04/17/18 00:00 65 04/16/18 22:00 65 04/16/18 22:00 100 35 04/16/18 20:40 92 45 04/16/18 20:00 96.6 64 24 96/65 (75) 93 107/56 (73) Manual Cuff/Auscultation 04/16/18 20:00 45 04/16/18 20:00 64 04/16/18 19:00 64 106/56 04/16/18 18:15 87 35 04/16/18 18:00 96.6 64 24 96/64 (75) 92 106/56 (73) 04/16/18 18:00 64 04/16/18 17:19 66 107/56 04/16/18 17:18 66 106/55 04/16/18 17:00 97.5 67 24 95/66 (76) 89 108/56 (73) I/O 04/16/18 04/16/18 04/16/18 04/17/18 04/17/18 04/17/18 06:59 14:59 22:59 06:59 14:59 22:59 Intake Total 1400 ml 580 ml 1508.5 ml 1932 ml 694 ml Output Total 10 ml 13 ml 7 ml 10 ml Balance 1390 ml 567 ml 1501.5 ml 1922 ml 694 ml Intake IV Total 1400 ml 1048.5 ml 1932 ml 694 ml Packed Cells 400 ml 400 ml Blood Product IV Normal Saline Flush 180 ml 60 ml Output Urine Total 10 ml 13 ml 7 ml 10 ml Physical Exam GENERAL: Intubated, on the vent SKIN: Warm and dry. HEAD: Normocephalic. EYES: No scleral icterus. No injection or drainage. NECK: Supple, trachea midline. No JVD or lymphadenopathy. CARDIOVASCULAR: Regular rate and rhythm without murmurs, gallops, or rubs. RESPIRATORY: Breath sounds equal bilaterally. No accessory muscle use. GASTROINTESTINAL: Abdomen soft, non-tender, nondistended. MUSCULOSKELETAL: Bilat cyanosis, no edema, distal pulses absent Laboratory Laboratory Tests Test 04/16/18 21:35 04/17/18 04:04 04/17/18 04:05 04/17/18 10:18 Blood Gas Puncture Site ART LINE SANDRA Blood Gas Patient Temperature 98.6 98.6 Blood Gas HCO3 12 mmol/L 19 mmol/L Blood Gas Base Excess -12.0 mmol/L -3.4 mmol/L Blood Gas Oxygen Saturation 97 % 97 % Arterial Blood pH 7.39 7.50 Arterial Blood Partial Pressure CO2 20 mmHg 25 mmHg Arterial Blood Partial Pressure O2 205 mmHg 168 mmHg Arterial Blood Oxygen Content 15.1 Vol % 14.6 Vol % Arterial Blood Carboxyhemoglobin 0.9 % 1.0 % Arterial Blood Methemoglobin 1.4 % 1.3 % Blood Gas Hemoglobin 10.8 G/DL 10.4 G/DL Oxygen Delivery Device VENTILATOR VENTILATOR Blood Gas Ventilator Setting PRVC / AC / SEE COMMENTS Blood Gas Inspired Oxygen 45 % 35 % White Blood Count 13.0 TH/MM3 Red Blood Count 3.27 MIL/MM3 Hemoglobin 10.1 GM/DL Hematocrit 30.4 % Mean Corpuscular Volume 92.9 FL Mean Corpuscular Hemoglobin 30.9 PG Mean Corpuscular Hemoglobin Concent 33.3 % Red Cell Distribution Width 16.4 % Platelet Count 59 TH/MM3 Mean Platelet Volume 11.3 FL Neutrophils (%) (Auto) 90.3 % Lymphocytes (%) (Auto) 3.7 % Monocytes (%) (Auto) 2.7 % Eosinophils (%) (Auto) 2.0 % Basophils (%) (Auto) 1.3 % Neutrophils # (Auto) 11.7 TH/MM3 Lymphocytes # (Auto) 0.5 TH/MM3 Monocytes # (Auto) 0.3 TH/MM3 Eosinophils # (Auto) 0.3 TH/MM3 Basophils # (Auto) 0.2 TH/MM3 CBC Comment AUTO DIFF Differential Total Cells Counted 100 Neutrophils % (Manual) 44 % Band Neutrophils % 48 % Lymphocytes % 1 % Neutrophils # (Manual) 12.9 TH/MM3 Metamyelocytes 7 % Nucleated Red Blood Cells 5 /100 WBC Differential Comment FINAL DIFF MANUAL Toxic Vacuolation PRESENT Dohle Bodies PRESENT Platelet Estimate LOW Platelet Morphology Comment ENLARGED Prothrombin Time 31.7 SEC Prothromb Time International Ratio 3.1 RATIO Blood Urea Nitrogen 39 MG/DL Creatinine 3.05 MG/DL Random Glucose 125 MG/DL Total Protein 4.2 GM/DL Albumin 2.0 GM/DL Calcium Level 5.9 MG/DL Phosphorus Level 7.4 MG/DL Magnesium Level 1.8 MG/DL Alkaline Phosphatase 190 U/L Aspartate Amino Transf (AST/SGOT) 8331 U/L Alanine Aminotransferase (ALT/SGPT) 3769 U/L Total Bilirubin 4.0 MG/DL Sodium Level 141 MEQ/L Potassium Level 4.7 MEQ/L Chloride Level 98 MEQ/L Carbon Dioxide Level 16.3 MEQ/L Anion Gap 27 MEQ/L Estimat Glomerular Filtration Rate 20 ML/MIN Protein Corrected Calcium 7.3 MG/DL Total Creatine Kinase 5736 U/L Creatine Kinase MB 89.1 NG/ML Creatine Kinase MB % 1.6 % Random Vancomycin Level 26.2 COMMENT Lactic Acid Level 15.7 mmol/L Ammonia 105 MCMOL/L Imaging Last 24 hours Impressions Chest X-Ray 04/17/18 0600 Signed Impressions: CONCLUSION: Cardiomegaly. Bibasilar areas of consolidation/atelectasis and/or effusion. Assessment and Plan Problem List: (1) Cardiac arrest ICD Codes: I46.9 - Cardiac arrest, cause unspecified (2) CAD (coronary artery disease) ICD Codes: I25.10 - Atherosclerotic heart disease of [place] coronary artery without angina pectoris Status: Chronic (3) PAD (peripheral artery disease) ICD Codes: I73.9 - Peripheral vascular disease, unspecified Status: Chronic (4) Ischemic dilated cardiomyopathy ICD Codes: I25.5 - Ischemic cardiomyopathy; I42.0 - Dilated cardiomyopathy Status: Chronic (5) Hypertension ICD Codes: I10 - Essential (primary) hypertension Status: Chronic (6) Acute renal failure ICD Codes: N17.9 - Acute kidney failure, unspecified Status: Acute (7) DEMENTIA IN OTH DISEASES CLASSD ELSWHR W BEHAVIORAL DISTURB ICD Codes: F02.81 - DEMENTIA IN OTH DISEASES CLASSD ELSWHR W BEHAVIORAL DISTURB Assessment and Plan Continue ICU care. Pt is DNR. Recommend comfort care. Overall prognosis is extremely poor. Jose R Forrest MD Apr 17, 2018 16:18
--- NOTE | 2018-04-17 17:54 | MG ---
cc: Robert Rodriguez MD EEG NUMBER: [id number] INDICATIONS: Cardiac arrest. Vancomycin. DESCRIPTION: Diffuse low-amplitude recording is seen with a 7 Hz diffuse 30 microvolt to 40 microvolt background, sometimes down to diffuse 4 Hz lower amplitude and almost appears to be an at times burst suppression pattern where there is about a 2-3 second suppression of the background and then the background comes back up again to a low-amplitude beta rhythm. No hemisphere asymmetries are noted. No epileptiform or seizure activity is seen. Photic stimulation is performed without significant posterior driving. IMPRESSION: Diffuse low-amplitude slowing consistent with a moderate diffuse encephalopathy. No sharp activity was noted, but this could be considered consistent with some diffuse brain injury versus medication effect. Clinical correlation is needed. Robert Rodriguez MD DJM/KD , 05:40 PM , 05:53 PM
--- NOTE | 2018-04-17 22:06 | MB ---
cc: Aime Yusuf MD, Slobodan MD DATE: 04/17/2018 REASON FOR CONSULTATION: Ischemia of both legs, respiratory failure, status post cardiac arrest and metabolic encephalopathy. Critical care time 34 minutes. HISTORY OF PRESENT ILLNESS: This 77-year-old gentleman is an inhabitant of a local long-term apparently developed cardiorespiratory arrest and was transferred to our institution on 04/15. He arrived by EMS with CPR in progress and had initially pulseless electrical activity. However, he was then resuscitated, lost pulse again and was brought back. Patient is now in the ICU on the ventilator and both lower extremities are hypoperfused and cold, hence, the consultation. PAST MEDICAL HISTORY: Dementia, coronary artery disease, myocardial infarction, congestive failure, hypertension, peripheral vascular disease. MEDICATIONS: The patient is on Seroquel, Aspirin and some other medications. SOCIAL HISTORY: Not known to me. PHYSICAL EXAMINATION: GENERAL: Reveals a gentleman on the ventilator. HEENT: Normocephalic. No trauma to the head. Pupils are equal, poorly reactive. Extraocular muscles cannot be tested. NEUROLOGIC: The patient is totally unresponsive with [place] Coma Scale of 3. Does not move either upper or lower extremities. NECK: Bilateral carotid pulses. CHEST: Bilateral breath sounds. The patient is fairly thin. He is fully ventilatory dependent. HEART: Regular rhythm. ABDOMEN: Soft. EXTREMITIES: The patient has palpable femoral pulses and no distal pulses on Doppler or palpation. Feet are livid but not pale and the patient has lividity extending all the way to the level of the knees. IMPRESSION/RECOMMENDATIONS: This gentleman developed 2 episodes of cardiorespiratory arrest, was resuscitated. Currently he is on multiple pressors including dobutamine and vasopressin. His pulses clearly would be normally very diminished distally. I am sure he has underlying severe peripheral vascular disease on top of this. At this point, the patient is not a candidate for any further vascular workup, therapy or approach. At this point, there is no surgical vascular therapy that should be initiated in anyway, form or fashion. I thank you very much for referral. MD KEIKO Proctor/ , 08:58 PM , 10:04 PM
--- NOTE | 2018-04-17 22:40 | RADRPT ---
EXAM DATE: 04/17/2018 10:34 PM EDT AGE/SEX: 77 years / Male INDICATIONS: . Anoxic brain injury. CLINICAL DATA: This is the patient's initial encounter. Patient reports that signs and symptoms have been present for 1 day and indicates a pain score of Nonresponsive. MEDICAL/SURGICAL HISTORY: Congestive heart failure. Hypertension. Peripheral artery disease. None. COMPARISON: [facility] [place], CT BRAIN W/O CONTRAST, 04/15/2018. . TECHNIQUE: Multiplanar, multisequence examination of the brain was performed without contrast. FINDINGS: Cerebrum: The ventricles are prominent consistent with atrophy. 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 No evidence of midline shift, mass lesion, hemorrhage or acute infarction. No extraaxial fluid juan antonio ections are seen. The pituitary gland and suprasellar cistern are normal in configuration. White Matter: Scattered foci of bright T2 signal abnormalities are seen in the white matter. Posterior Fossa: The cerebellum and brainstem are intact. The 4th ventricle is midline. The cerebel lopontine angle is unremarkable. The cerebellar tonsils are normal in position. Diffusion Imaging: No focal areas of restricted diffusion are seen. No evidence of acute infarction . Extracranial: The visualized portions of the orbits and paranasal sinuses are unremarkable. CONCLUSION: 1. Cerebral atrophy and chronic ischemic small vessel vasculopathy. 2. No acute infarction. Electronically signed by: Sterling Oliva MD 04/17/2018 10:39 PM EDT
--- NOTE | 2018-04-17 22:58 | RADRPT ---
EXAM DATE: 04/17/2018 10:52 PM EDT AGE/SEX: 77 years / Male INDICATIONS: Altered mental status. CLINICAL DATA: This is the patient's initial encounter. Patient reports that signs and symptoms have been present for 1 day and indicates a pain score of Nonresponsive. MEDICAL/SURGICAL HISTORY: Cardiovascular disease. Deep venous thrombosis. Dementia. None. RADIATION DOSE: 38.79 CTDI (mGy) COMPARISON: [facility] [place], CT BRAIN W/O CONTRAST, 04/15/2018. . TECHNIQUE: CT of the head without contrast. Using automated exposure control and adjustment of the mA and/or kV according to patient size, radiation dose was kept as low as reasonably achievable to ob tain optimal diagnostic quality images. DICOM format image data is available electronically for revi ew and comparison. FINDINGS: Cerebrum: The ventricles are dilated. This configuration is unchanged from the prior exam. Stable. No evidence of midline shift, mass lesion, hemorrhage or acute infarction. No extraaxial fluid colle ctions are seen. Posterior Fossa: The cerebellum and brainstem are intact. The 4th ventricle is midline. The cerebe llopontine angle is unremarkable. Extracranial: The visualized portion of the orbits is intact. Skull: The calvaria is intact. No evidence of skull fracture. CONCLUSION: 1. No acute abnormality seen. 2. Persistently dilated ventricles. The ventricles are dilated out of proportion to sulcal widening which can suggest the presence of normal pressure hydrocephalus in the correct clinical situation. Electronically signed by: Chico Stokes MD 04/17/2018 10:57 PM EDT
[2018-04-18] VITALS (19 sets, daily range): BP systolic 128–134; BP diastolic 66–76; PULSE 73–84; RESP 18–20; TEMP 97–98.3; O2SAT 90–100
[2018-04-18] MEDS: HYDROCORTISONE SOD SUCCINATE 100 MG VIAL IV PUSH SCH ×5 (01:18→22:48)
--- NOTE | 2018-04-18 01:35 | RADRPT ---
EXAM DATE: 04/18/2018 1:27 AM EDT AGE/SEX: 77 years / Male INDICATIONS: Short of breath. CLINICAL DATA: This is the patient's subsequent encounter. Patient reports that signs and symptoms h ave been present for 4 - 6 days and indicates a pain score of 0/10. MEDICAL/SURGICAL HISTORY: Cardiovascular disease. Chronic obstructive pulmonary disease. Non-r esponsive. COMPARISON: [facility] – [place], CHEST SINGLE AP, 04/17/2018. . FINDINGS: The cardiac silhouette is enlarged. The ET tube and NG tube are well placed. There is diffuse density seen throughout both lungs. CONCLUSION: Diffuse increased density seen throughout the lungs likely related to diffuse consolidation/edema and /or bilateral effusions. Electronically signed by: Chico Stokes MD 04/18/2018 1:33 AM EDT
[2018-04-18] MEDS: RESP: ALBUTEROL 2.5 MG/IPRATROPIUM 0.5 MG NEB (SCH) NEB ×4 (03:24→20:08)
[2018-04-18] MEDS: CHLORHEXIDINE GLUCONATE 2 % 1 PACK (2 CLOTHS) TOP SCH (04:00)
[2018-04-18] MEDS: PIPERACIL-TAZO 2.25 GM PREMIX 50 ML IV SCH ×4 (04:11→22:48)
[2018-04-18 04:37] LABS: HEMATOCRIT 33.9 % (39.0-51.0); HEMOGLOBIN 11.1 GM/DL (13.0-17.0); MEAN CELL VOLUME 91.4 FL (80.0-100.0); MEAN CORPUSCULAR HEMOGLOBIN 29.9 PG (27.0-34.0); MEAN CORPUSCULAR HGB CONC 32.7 % (32.0-36.0); MEAN PLATELET VOLUME 11.2 FL (7.0-11.0); PLATELET COUNT 59 TH/MM3 (150-450); RED BLOOD COUNT 3.71 MIL/MM3 (4.50-5.90); RED CELL DISTRIBUTION WIDTH 16.2 % (11.6-17.2); WHITE BLOOD COUNT 13.8 TH/MM3 (4.0-11.0)
[2018-04-18] MEDS: VASOPRESSIN INJ 40 UNITS in SODIUM CHLORIDE 0.9% INJ 98 ML IV SCH ×2 (05:04→22:14)
[2018-04-18 05:05] LABS: ALBUMIN 1.8 GM/DL (3.4-5.0); BICARBONATE 27.2 MEQ/L (21.0-32.0); CALCIUM 5.5 MG/DL (8.5-10.1); CREATININE 3.62 MG/DL (0.60-1.30); MAGNESIUM 1.8 MG/DL (1.5-2.5)
[2018-04-18 05:58] LABS: CALCIUM-PROTEIN CORRECTED 6.8 MG/DL (8.5-10.1); PHOSPHORUS 6.2 MG/DL (2.5-4.9); TOTAL PROTEIN 4.1 GM/DL (6.4-8.2)
[2018-04-18] MEDS: SODIUM BICARBONATE 8.4% INJ 150 MEQ in DEXTROSE 5% IN WATE 1000ML INJ 1,000 ML IV SCH ×4 (06:08→23:26)
[2018-04-18] MEDS: INSULIN NovoLIN REGULAR SUPPLEMENTAL SCALE SQ SCH ×4 (08:00→21:00)
[2018-04-18] MEDS: LACTULOSE SYRUP 20 GM/30 ML CUP PO SCH ×4 (09:18→22:47)
[2018-04-18] MEDS: FAMOTIDINE 20 MG/2 ML VIAL IV PUSH SCH ×2 (09:18→22:47)
[2018-04-18] MEDS: CHLORHEXIDINE 0.12% (ORAL KIT) 15 ML CUP MT SCH ×2 (09:19→22:48)
[2018-04-18] MEDS: SODIUM CHLORIDE 0.9% FLUSH 10 ML FLUSH IV FLUSH SCH ×2 (09:19→22:48)
[2018-04-18] MEDS: DOCUSATE SODIUM 50 MG/SENNA 8.6 MG TAB PO SCH ×2 (09:19→21:00)
[2018-04-18] MEDS: ARTIFICIAL TEARS OPTH SOLN 15 ML BTL EACH EYE SCH ×3 (09:19→17:23)
[2018-04-18 10:41] LABS: BANDS 18 % (0-6); CORRECTED NUCLEATED RBC 3 /100 WBC (0-0); LYMPHOCYTES 4 % (9-44); MONOCYTES 1 % (0-8); NEUTROPHIL # MANUAL DIFF 13.1 TH/MM3 (1.8-7.7); NUCLEATED RED BLOOD CELL 3 (0-0); POLYS (SEG NEUTROPHILS) 77 % (16-70)
[2018-04-18 10:51] LABS: TOXIC GRANULATION 1+ (NORMAL)
--- NOTE | 2018-04-18 14:05 | PD.CARD.PN ---
Subjective Subjective Remarks Intubated, on the vent, unresponsive, DNR Objective Medications Current Medications Medications (Trade) Dose Ordered Sig/Aure Route Start Time Stop Time Status Last Admin (Ecotrin Ec) 81 mg DAILY PO 04/15/18 09:00 Future Hold 04/15/18 08:58 (SEROquel) 50 mg DAILY@1200,1800 PO 04/15/18 12:00 Future Hold 04/15/18 17:41 (NS Flush) 2 ml UNSCH PRN IV FLUSH 04/15/18 04:00 (NS Flush) 2 ml BID IV FLUSH 04/15/18 09:00 04/18/18 09:19 (Tylenol) 650 mg Q6H PRN PO 04/15/18 04:00 (Morphine Inj) 2 mg Q2H PRN IV PUSH 04/15/18 04:00 (Ativan Inj) 1 mg Q1H PRN IV PUSH 04/15/18 04:00 (Tears Naturale Opth Soln) 1 drop TID EACH EYE 04/15/18 09:00 04/18/18 13:31 (Zofran Odt) 4 mg Q6H PRN PO 04/15/18 04:00 ([facility] [place] Nursing Information) 1 Q361D XX 04/15/18 04:00 (Chlorhexidine 2% Cloth) 3 pack Taper DAILY@04 TOP 04/15/18 04:00 04/11/19 03:59 04/18/18 04:00 (Chlorhexidine 2% Cloth) 3 pack UNSCH PRN TOP 04/15/18 04:00 (Mary-Colace) 1 tab BID PO 04/15/18 09:00 04/18/18 09:19 (Milk Of Magnesia Liq) 30 ml Q12H PRN PO 04/15/18 04:00 (Senokot) 17.2 mg Q12H PRN PO 04/15/18 04:00 (Dulcolax Supp) 10 mg DAILY PRN RECTAL 04/15/18 04:00 (Peridex 0.12% Liq) 15 ml BID@08,20 MT 04/15/18 08:00 04/18/18 09:19 (Ativan Inj) 1 mg Q1H PRN IV PUSH 04/15/18 04:00 (Demerol Inj) 25 mg Q2H PRN IV PUSH 04/15/18 04:00 (Lacrilube Opht Oint) 1 applic Q4H PRN EACH EYE 04/15/18 04:00 Miscellaneous Information 0 ml @ 0 mls/hr UNSCH IV 04/15/18 04:00 (Brethine Inj) 1 mg UNSCH PRN SQ 04/15/18 04:00 Norepinephrine Bitartrate 4 mg/ Sodium Chloride 250 ml @ 7.5 mls/hr TITRATE PRN IV 04/15/18 04:15 04/16/18 09:31 (D50w (Vial) Inj) 50 ml UNSCH PRN IV PUSH 04/15/18 05:00 (Glucagon Inj) 1 mg UNSCH PRN OTHER 04/15/18 05:00 (NovoLIN R SUPPLEMENTAL SCALE) 1 ACHS SLIDING SCALE SQ 04/15/18 08:00 04/17/18 21:31 Sodium Bicarbonate 150 meq/Dextrose 1,150 ml @ 125 mls/hr Q9H12M IV 04/15/18 05:00 04/18/18 06:08 Vasopressin 40 units/Sodium Chloride 100 ml @ 6 mls/hr [id number] IV 04/15/18 08:30 04/18/18 05:04 Pharmacy Profile Note 0 ml @ 0 mls/hr UNSCH OTHER 04/15/18 14:15 Piperacillin Sod/ Tazobactam Sod 50 ml @ 100 mls/hr Q6H IV 04/15/18 15:00 04/18/18 13:30 (SoluCORTEF INJ) 100 mg Q6HR IV PUSH 04/15/18 14:15 04/18/18 13:30 (Duoneb Neb) 1 ampule Q6HR NEB NEB 04/16/18 10:00 04/18/18 08:33 (Duoneb Neb) 1 ampule Q2HR NEB PRN NEB 04/16/18 09:45 (Pepcid Inj) 10 mg Q12HR IV PUSH 04/16/18 21:00 04/18/18 09:18 Dobutamine HCl 1000 mg/Dextrose 250 ml @ 5.38 mls/hr TITRATE PRN IV 04/16/18 23:30 04/17/18 00:40 (Lactulose Liq) 30 ml QID PO 04/17/18 13:00 04/18/18 13:30 Vital Signs / I&O Vital Signs Date Time Temp Pulse Resp B/P (MAP) Pulse Ox O2 Delivery O2 Flow Rate FiO2 04/18/18 11:19 90 35 04/18/18 10:00 81 04/18/18 08:34 90 35 04/18/18 08:00 35 04/18/18 08:00 98.2 81 18 128/74 (92) 134/70 (91) 04/18/18 08:00 81 04/18/18 07:00 82 134/69 04/18/18 06:00 79 04/18/18 05:04 83 142/74 04/18/18 04:00 35 04/18/18 04:00 84 04/18/18 03:26 92 35 04/18/18 02:00 80 04/18/18 01:04 92 35 04/18/18 00:00 73 04/18/18 00:00 35 04/17/18 23:03 100 100 04/17/18 22:00 80 04/17/18 20:00 80 04/17/18 20:00 35 04/17/18 19:34 95 35 04/17/18 18:00 77 04/17/18 16:00 35 04/17/18 16:00 75 04/17/18 16:00 98.1 75 0 115/69 (84) 77 130/66 (87) 04/17/18 15:24 95 35 I/O 04/17/18 04/17/18 04/17/18 04/18/18 04/18/18 04/18/18 07:00 15:00 23:00 07:00 15:00 23:00 Intake Total 1932 ml 694 ml 1543 ml 2325 ml Output Total 10 ml 50 ml 500 ml Balance 1922 ml 694 ml 1493 ml 1825 ml Intake Oral 0 ml IV Total 1932 ml 694 ml 1162 ml 2165 ml Tube Feeding 201 ml 60 ml Tube Irrigant 180 ml Other 100 ml Output Urine Total 10 ml 50 ml 0 ml Gastric Drainage Total 500 ml # Bowel Movements 0 0 Physical Exam GENERAL: Intubated, on the vent SKIN: Warm and dry. HEAD: Normocephalic. EYES: No scleral icterus. No injection or drainage. NECK: Supple, trachea midline. No JVD or lymphadenopathy. CARDIOVASCULAR: Regular rate and rhythm without murmurs, gallops, or rubs. RESPIRATORY: Breath sounds equal bilaterally. No accessory muscle use. GASTROINTESTINAL: Abdomen soft, non-tender, nondistended. MUSCULOSKELETAL: Bilat cyanosis, no edema, distal pulses absent Laboratory Laboratory Tests Test 04/17/18 19:04 04/18/18 04:20 Lactic Acid Level 12.8 mmol/L 8.6 mmol/L Total Creatine Kinase 7633 U/L 8074 U/L Creatine Kinase MB 96.9 NG/ML 94.4 NG/ML Creatine Kinase MB % 1.3 % 1.2 % White Blood Count 13.8 TH/MM3 Red Blood Count 3.71 MIL/MM3 Hemoglobin 11.1 GM/DL Hematocrit 33.9 % Mean Corpuscular Volume 91.4 FL Mean Corpuscular Hemoglobin 29.9 PG Mean Corpuscular Hemoglobin Concent 32.7 % Red Cell Distribution Width 16.2 % Platelet Count 59 TH/MM3 Mean Platelet Volume 11.2 FL CBC Comment AUTO DIFF Differential Total Cells Counted 100 Neutrophils % (Manual) 77 % Band Neutrophils % 18 % Lymphocytes % 4 % Monocytes % 1 % Neutrophils # (Manual) 13.1 TH/MM3 Nucleated Red Blood Cells 3 /100 WBC Differential Comment FINAL DIFF MANUAL Toxic Granulation 1+ Platelet Estimate LOW Platelet Morphology Comment NORMAL Blood Urea Nitrogen 48 MG/DL Creatinine 3.62 MG/DL Random Glucose 168 MG/DL Total Protein 4.1 GM/DL Albumin 1.8 GM/DL Calcium Level 5.5 MG/DL Phosphorus Level 6.2 MG/DL Magnesium Level 1.8 MG/DL Alkaline Phosphatase 185 U/L Aspartate Amino Transf (AST/SGOT) 4655 U/L Alanine Aminotransferase (ALT/SGPT) 3442 U/L Total Bilirubin 6.0 MG/DL Sodium Level 140 MEQ/L Potassium Level 4.1 MEQ/L Chloride Level 94 MEQ/L Carbon Dioxide Level 27.2 MEQ/L Anion Gap 19 MEQ/L Estimat Glomerular Filtration Rate 16 ML/MIN Protein Corrected Calcium 6.8 MG/DL Ammonia 62 MCMOL/L Imaging Last 24 hours Impressions Chest X-Ray 04/18/18 0600 Signed Impressions: CONCLUSION: Diffuse increased density seen throughout the lungs likely related to diffuse c onsolidation/edema and/or bilateral effusions. Assessment and Plan Problem List: (1) Cardiac arrest ICD Codes: I46.9 - Cardiac arrest, cause unspecified (2) CAD (coronary artery disease) ICD Codes: I25.10 - Atherosclerotic heart disease of [place] coronary artery without angina pectoris Status: Chronic (3) PAD (peripheral artery disease) ICD Codes: I73.9 - Peripheral vascular disease, unspecified Status: Chronic (4) Ischemic dilated cardiomyopathy ICD Codes: I25.5 - Ischemic cardiomyopathy; I42.0 - Dilated cardiomyopathy Status: Chronic (5) Hypertension ICD Codes: I10 - Essential (primary) hypertension Status: Chronic (6) Acute renal failure ICD Codes: N17.9 - Acute kidney failure, unspecified Status: Acute (7) DEMENTIA IN OTH DISEASES CLASSD ELSWHR W BEHAVIORAL DISTURB ICD Codes: F02.81 - DEMENTIA IN OTH DISEASES CLASSD ELSWHR W BEHAVIORAL DISTURB Assessment and Plan Continue ICU care. Pt is DNR. Recommend comfort care. Overall prognosis is extremely poor. Palliative care evaluation. Withdrawal of care consideration is appropriate. Jose R Forrest MD Apr 18, 2018 14:05
--- NOTE | 2018-04-18 15:00 | HHI.HCPN ---
Reason for visit a. To assist with evaluation and management of symptoms including: pain, encephalopathy b. To assist medical decision maker(s) with: better understanding of current medical conditions; weighing benefits/burdens of medical treatment options; making medical treatment decisions. . Subjective/Interval History Mr. Fountain is a 77-year-old male [facility] resident who presented to [facility] ED status post PEA arrest x 2 with prolonged CPR. He was intubated en route. Upon arrival to the hospital, hypothermia protocol was initiated. Follow-up visit for symptom management and clarification of medical treatment goals. Patient was seen and assessed in the intensive care unit, room 525. No family was present. Patient remains intubated on mechanical ventilation. On pressor support, dobutamine and vasopressin, to maintain map >65. Ischemic changes noted in the bilateral lower extremities that are cool to touch and mottled from the toes to the mid thigh. Cardiothoracic surgery evaluated the patient and determined the patient was not a candidate for any further vascular workup or surgical vascular therapy. Echocardiogram on 04/15/2018 showing severely reduced left ventricular systolic function with an estimated EF fraction <20%. Cardiology following. Patient does not respond to any noxious stimuli. No cough or gag. No corneal reflex. CT brain showing enlargement of ventricles with dilatation of the sulci, possible NPH. Decreased density in the periventricular white matter. No hemorrhage EEG revealed diffuse low amplitude slowing consistent with a moderate diffuse encephalopathy. No sharp activity was noted, but this could be considered consistent with some diffuse brain injury. WBC: 13.0, hemoglobin 11.1 hematocrit 33.9,platelets 59, sodium 141, potassium 4.1, chloride 94, glucose 168, calcium 5.5, prot corrected calcium 6.8, phosphorus 6.2, magnesium 1.8, total bilirubin 6..0, AST 4655, ALT 3442, alkaline phosphatase 185, ammonia 62, total creatine kinase 8074, CK-MB 94.4, lactic acid 8.6, total protein 4.1, albumin 1.8. Patient remains anuric. Creatinine has increased from 1.63 on 04/15/16 to 3.62 today 04/18/18. Family does not was dialysis; nephrology has signed off. Palliative care spoke to the patient's niece, Kathryn Manriquez, who has decided to forego further diagnostic procedures or aggressive interventions. She requests compassionate withdrawal of artificial life support with transition to comfort focused care. The process of withdrawing the patient from artificial life support was discussed at length. Exhibit B was emailed to the patient's niece for her to review and sign; awaiting returned/signed document. Tentative plan for withdrawal tomorrow 04/19/2018. . Family/friend interactions See interval history Objective Vital Signs Date Time Temp Pulse Resp B/P (MAP) Pulse Ox O2 Delivery O2 Flow Rate FiO2 04/18/18 11:19 90 35 04/18/18 10:00 81 04/18/18 08:34 90 35 04/18/18 08:00 35 04/18/18 08:00 98.2 81 18 128/74 (92) 134/70 (91) 04/18/18 08:00 81 04/18/18 07:00 82 134/69 04/18/18 06:00 79 04/18/18 05:04 83 142/74 04/18/18 04:00 35 04/18/18 04:00 84 04/18/18 03:26 92 35 04/18/18 02:00 80 04/18/18 01:04 92 35 04/18/18 00:00 73 04/18/18 00:00 35 04/17/18 23:03 100 100 04/17/18 22:00 80 04/17/18 20:00 80 04/17/18 20:00 35 04/17/18 19:34 95 35 04/17/18 18:00 77 04/17/18 16:00 35 04/17/18 16:00 75 04/17/18 16:00 98.1 75 0 115/69 (84) 77 130/66 (87) 04/17/18 15:24 95 35 Intake & Output 04/18/18 04/18/18 07:00 19:00 Intake Total 2375 ml Output Total 500 ml Balance 1875 ml Intake Oral 0 ml IV Total 2215 ml Tube Feeding 60 ml Other 100 ml Output Urine Total 0 ml Gastric Drainage Total 500 ml # Bowel Movements 0 . Physical Exam CONSTITUTIONAL/GENERAL: This is an elderly, male patient currently intubated on mechanical ventilation. TUBES/LINES/DRAINS: CVL, PIV x 4, horton, ETT, arterial line SKIN: Jaundice. Ecchymoses on upper extremities. Multiple skin tear on BUE. Not diaphoretic. Chronic stasis changes over bilateral lower extremities HEAD: Atraumatic. Normocephalic. EYES: Pupils pinpoint, nonreactive. No injection or drainage. ENT: Nose without bleeding or purulent drainage. Unable to visualize throat secondary to tubes. NECK: Trachea midline. Supple, nontender. No palpable thyroid enlargement or nodularity. CARDIOVASCULAR: Regular rate and rhythm without murmurs. Bilateral lower extremities are cool to touch and mottled RESPIRATORY/CHEST: Intubated on mechanical ventilation. Coarse air exchange. GASTROINTESTINAL: Abdomen soft, non-tender, nondistended. No guarding. Bowel sounds present. GENITOURINARY: Without palpable bladder distension. Horton catheter in place. MUSCULOSKELETAL: Extremities are edematous. LYMPHATICS: No palpable cervical or supraclavicular adenopathy. NEUROLOGICAL: Sedated. Unresponsive. Does not withdraw to noxious stimuli. PSYCHIATRIC: Unable to assess given current clinical condition. . Diagnostic Tests Laboratory Laboratory Tests Test 04/15/18 20:00 04/15/18 21:00 04/16/18 04:00 04/16/18 06:19 Blood Gas Puncture Site ART LINE ART LINE Blood Gas Patient Temperature 98.6 98.6 Blood Gas HCO3 12 mmol/L (22-26) 14 mmol/L (22-26) Blood Gas Base Excess -13.1 mmol/L (-2-2) -10.9 mmol/L (-2-2) Blood Gas Oxygen Saturation 96 % (90-100) 97 % (90-100) Arterial Blood pH 7.29 (7.380-7.420) 7.33 (7.380-7.420) Arterial Blood Partial Pressure CO2 26 mmHg (38-42) 27 mmHg (38-42) Arterial Blood Partial Pressure O2 152 mmHg (61-120) 174 mmHg (61-120) Arterial Blood Oxygen Content 11.0 Vol % (12.0-20.0) 9.7 Vol % (12.0-20.0) Arterial Blood Carboxyhemoglobin 1.0 % (0-4) 1.1 % (0-4) Arterial Blood Methemoglobin 1.5 % (0-2) 1.3 % (0-2) Blood Gas Hemoglobin 7.9 G/DL (12.0-16.0) 6.8 G/DL (12.0-16.0) Oxygen Delivery Device VENTILATOR VENTILATOR Blood Gas Ventilator Setting PRVC/AC PRVC/ AC Blood Gas Inspired Oxygen 35 % 35 % Blood Urea Nitrogen 34 MG/DL (7-18) 35 MG/DL (7-18) Creatinine 2.16 MG/DL (0.60-1.30) 2.41 MG/DL (0.60-1.30) Random Glucose 189 MG/DL (74-106) 157 MG/DL (74-106) Total Protein 5.2 GM/DL (6.4-8.2) 4.9 GM/DL (6.4-8.2) Calcium Level 6.7 MG/DL (8.5-10.1) 6.3 MG/DL (8.5-10.1) Magnesium Level 2.3 MG/DL (1.5-2.5) 2.1 MG/DL (1.5-2.5) Sodium Level 141 MEQ/L (136-145) 141 MEQ/L (136-145) Potassium Level 4.8 MEQ/L (3.5-5.1) 4.7 MEQ/L (3.5-5.1) Chloride Level 103 MEQ/L (98-107) 101 MEQ/L (98-107) Carbon Dioxide Level 12.3 MEQ/L (21.0-32.0) 14.6 MEQ/L (21.0-32.0) Anion Gap 26 MEQ/L (5-15) 25 MEQ/L (5-15) Estimat Glomerular Filtration Rate 30 ML/MIN (>89) 26 ML/MIN (>89) Protein Corrected Calcium 7.7 MG/DL (8.5-10.1) 7.4 MG/DL (8.5-10.1) White Blood Count 8.4 TH/MM3 (4.0-11.0) Red Blood Count 2.36 MIL/MM3 (4.50-5.90) Hemoglobin 7.2 GM/DL (13.0-17.0) Hematocrit 22.8 % (39.0-51.0) Mean Corpuscular Volume 96.3 FL (80.0-100.0) Mean Corpuscular Hemoglobin 30.3 PG (27.0-34.0) Mean Corpuscular Hemoglobin Concent 31.5 % (32.0-36.0) Red Cell Distribution Width 17.5 % (11.6-17.2) Platelet Count 55 TH/MM3 (150-450) Mean Platelet Volume 9.7 FL (7.0-11.0) Neutrophils (%) (Auto) 88.5 % (16.0-70.0) Lymphocytes (%) (Auto) 5.7 % (9.0-44.0) Monocytes (%) (Auto) 4.8 % (0.0-8.0) Eosinophils (%) (Auto) 0.9 % (0.0-4.0) Basophils (%) (Auto) 0.1 % (0.0-2.0) Neutrophils # (Auto) 7.4 TH/MM3 (1.8-7.7) Lymphocytes # (Auto) 0.5 TH/MM3 (1.0-4.8) Monocytes # (Auto) 0.4 TH/MM3 (0-0.9) Eosinophils # (Auto) 0.1 TH/MM3 (0-0.4) Basophils # (Auto) 0.0 TH/MM3 (0-0.2) CBC Comment AUTO DIFF Differential Total Cells Counted 100 Neutrophils % (Manual) 57 % (16-70) Band Neutrophils % 34 % (0-6) Lymphocytes % 5 % (9-44) Monocytes % 4 % (0-8) Neutrophils # (Manual) 7.6 TH/MM3 (1.8-7.7) Nucleated Red Blood Cells 1 /100 WBC (0-0) Differential Comment FINAL DIFF MANUAL Platelet Estimate LOW (NORMAL) Platelet Morphology Comment NORMAL (NORMAL) Ovalocytes 1+ (NORMAL) Acanthocytes OCC (NORMAL) Keratocytes OCC (NORMAL) Prothrombin Time 23.2 SEC (9.8-11.6) Prothromb Time International Ratio 2.3 RATIO Activated Partial Thromboplast Time 35.4 SEC (24.3-30.1) Albumin 2.4 GM/DL (3.4-5.0) Phosphorus Level 7.5 MG/DL (2.5-4.9) Alkaline Phosphatase 198 U/L (45-117) Aspartate Amino Transf (AST/SGOT) 31355 U/L (15-37) Alanine Aminotransferase (ALT/SGPT) 3813 U/L (12-78) Total Bilirubin 3.4 MG/DL (0.2-1.0) Lactic Acid Level 15.9 mmol/L (0.4-2.0) Random Vancomycin Level 9.9 COMMENT Test 04/16/18 08:51 04/16/18 09:10 04/16/18 21:35 04/17/18 04:04 Blood Gas Puncture Site SANDRA ART LINE Blood Gas Patient Temperature 98.6 98.6 Blood Gas HCO3 15 mmol/L (22-26) 12 mmol/L (22-26) Blood Gas Base Excess -8.7 mmol/L (-2-2) -12.0 mmol/L (-2-2) Blood Gas Oxygen Saturation 97 % (90-100) 97 % (90-100) Arterial Blood pH 7.40 (7.380-7.420) 7.39 (7.380-7.420) Arterial Blood Partial Pressure CO2 25 mmHg (38-42) 20 mmHg (38-42) Arterial Blood Partial Pressure O2 199 mmHg (61-120) 205 mmHg (61-120) Arterial Blood Oxygen Content 10.2 Vol % (12.0-20.0) 15.1 Vol % (12.0-20.0) Arterial Blood Carboxyhemoglobin 1.1 % (0-4) 0.9 % (0-4) Arterial Blood Methemoglobin 1.5 % (0-2) 1.4 % (0-2) Blood Gas Hemoglobin 7.1 G/DL (12.0-16.0) 10.8 G/DL (12.0-16.0) Oxygen Delivery Device VENTILATOR VENTILATOR Blood Gas Ventilator Setting SEE COMMENTS PRVC / AC / Blood Gas Inspired Oxygen 35 % 45 % Fibrinogen 160 mg/dL (227-377) White Blood Count 13.0 TH/MM3 (4.0-11.0) Red Blood Count 3.27 MIL/MM3 (4.50-5.90) Hemoglobin 10.1 GM/DL (13.0-17.0) Hematocrit 30.4 % (39.0-51.0) Mean Corpuscular Volume 92.9 FL (80.0-100.0) Mean Corpuscular Hemoglobin 30.9 PG (27.0-34.0) Mean Corpuscular Hemoglobin Concent 33.3 % (32.0-36.0) Red Cell Distribution Width 16.4 % (11.6-17.2) Platelet Count 59 TH/MM3 (150-450) Mean Platelet Volume 11.3 FL (7.0-11.0) Neutrophils (%) (Auto) 90.3 % (16.0-70.0) Lymphocytes (%) (Auto) 3.7 % (9.0-44.0) Monocytes (%) (Auto) 2.7 % (0.0-8.0) Eosinophils (%) (Auto) 2.0 % (0.0-4.0) Basophils (%) (Auto) 1.3 % (0.0-2.0) Neutrophils # (Auto) 11.7 TH/MM3 (1.8-7.7) Lymphocytes # (Auto) 0.5 TH/MM3 (1.0-4.8) Monocytes # (Auto) 0.3 TH/MM3 (0-0.9) Eosinophils # (Auto) 0.3 TH/MM3 (0-0.4) Basophils # (Auto) 0.2 TH/MM3 (0-0.2) CBC Comment AUTO DIFF Differential Total Cells Counted 100 Neutrophils % (Manual) 44 % (16-70) Band Neutrophils % 48 % (0-6) Lymphocytes % 1 % (9-44) Neutrophils # (Manual) 12.9 TH/MM3 (1.8-7.7) Metamyelocytes 7 % (0-1) Nucleated Red Blood Cells 5 /100 WBC (0-0) Differential Comment FINAL DIFF MANUAL Toxic Vacuolation PRESENT (NONE SEEN) Dohle Bodies PRESENT (NONE SEEN) Platelet Estimate LOW (NORMAL) Platelet Morphology Comment ENLARGED (NORMAL) Prothrombin Time 31.7 SEC (9.8-11.6) Prothromb Time International Ratio 3.1 RATIO Blood Urea Nitrogen 39 MG/DL (7-18) Creatinine 3.05 MG/DL (0.60-1.30) Random Glucose 125 MG/DL (74-106) Total Protein 4.2 GM/DL (6.4-8.2) Albumin 2.0 GM/DL (3.4-5.0) Calcium Level 5.9 MG/DL (8.5-10.1) Phosphorus Level 7.4 MG/DL (2.5-4.9) Magnesium Level 1.8 MG/DL (1.5-2.5) Alkaline Phosphatase 190 U/L (45-117) Aspartate Amino Transf (AST/SGOT) 8331 U/L (15-37) Alanine Aminotransferase (ALT/SGPT) 3769 U/L (12-78) Total Bilirubin 4.0 MG/DL (0.2-1.0) Sodium Level 141 MEQ/L (136-145) Potassium Level 4.7 MEQ/L (3.5-5.1) Chloride Level 98 MEQ/L (98-107) Carbon Dioxide Level 16.3 MEQ/L (21.0-32.0) Anion Gap 27 MEQ/L (5-15) Estimat Glomerular Filtration Rate 20 ML/MIN (>89) Protein Corrected Calcium 7.3 MG/DL (8.5-10.1) Total Creatine Kinase 5736 U/L (39-308) Creatine Kinase MB 89.1 NG/ML (0.5-3.6) Creatine Kinase MB % 1.6 % (0.0-4.0) Random Vancomycin Level 26.2 COMMENT Test 04/17/18 04:05 04/17/18 10:18 04/17/18 19:04 04/18/18 04:20 Lactic Acid Level 15.7 mmol/L (0.4-2.0) 12.8 mmol/L (0.4-2.0) 8.6 mmol/L (0.4-2.0) Ammonia 105 MCMOL/L (11-32) 62 MCMOL/L (11-32) Blood Gas Puncture Site SANDRA Blood Gas Patient Temperature 98.6 Blood Gas HCO3 19 mmol/L (22-26) Blood Gas Base Excess -3.4 mmol/L (-2-2) Blood Gas Oxygen Saturation 97 % (90-100) Arterial Blood pH 7.50 (7.380-7.420) Arterial Blood Partial Pressure CO2 25 mmHg (38-42) Arterial Blood Partial Pressure O2 168 mmHg (61-120) Arterial Blood Oxygen Content 14.6 Vol % (12.0-20.0) Arterial Blood Carboxyhemoglobin 1.0 % (0-4) Arterial Blood Methemoglobin 1.3 % (0-2) Blood Gas Hemoglobin 10.4 G/DL (12.0-16.0) Oxygen Delivery Device VENTILATOR Blood Gas Ventilator Setting SEE COMMENTS Blood Gas Inspired Oxygen 35 % Total Creatine Kinase 7633 U/L (39-308) 8074 U/L (39-308) Creatine Kinase MB 96.9 NG/ML (0.5-3.6) 94.4 NG/ML (0.5-3.6) Creatine Kinase MB % 1.3 % (0.0-4.0) 1.2 % (0.0-4.0) White Blood Count 13.8 TH/MM3 (4.0-11.0) Red Blood Count 3.71 MIL/MM3 (4.50-5.90) Hemoglobin 11.1 GM/DL (13.0-17.0) Hematocrit 33.9 % (39.0-51.0) Mean Corpuscular Volume 91.4 FL (80.0-100.0) Mean Corpuscular Hemoglobin 29.9 PG (27.0-34.0) Mean Corpuscular Hemoglobin Concent 32.7 % (32.0-36.0) Red Cell Distribution Width 16.2 % (11.6-17.2) Platelet Count 59 TH/MM3 (150-450) Mean Platelet Volume 11.2 FL (7.0-11.0) CBC Comment AUTO DIFF Differential Total Cells Counted 100 Neutrophils % (Manual) 77 % (16-70) Band Neutrophils % 18 % (0-6) Lymphocytes % 4 % (9-44) Monocytes % 1 % (0-8) Neutrophils # (Manual) 13.1 TH/MM3 (1.8-7.7) Nucleated Red Blood Cells 3 /100 WBC (0-0) Differential Comment FINAL DIFF MANUAL Toxic Granulation 1+ (NORMAL) Platelet Estimate LOW (NORMAL) Platelet Morphology Comment NORMAL (NORMAL) Blood Urea Nitrogen 48 MG/DL (7-18) Creatinine 3.62 MG/DL (0.60-1.30) Random Glucose 168 MG/DL (74-106) Total Protein 4.1 GM/DL (6.4-8.2) Albumin 1.8 GM/DL (3.4-5.0) Calcium Level 5.5 MG/DL (8.5-10.1) Phosphorus Level 6.2 MG/DL (2.5-4.9) Magnesium Level 1.8 MG/DL (1.5-2.5) Alkaline Phosphatase 185 U/L (45-117) Aspartate Amino Transf (AST/SGOT) 4655 U/L (15-37) Alanine Aminotransferase (ALT/SGPT) 3442 U/L (12-78) Total Bilirubin 6.0 MG/DL (0.2-1.0) Sodium Level 140 MEQ/L (136-145) Potassium Level 4.1 MEQ/L (3.5-5.1) Chloride Level 94 MEQ/L (98-107) Carbon Dioxide Level 27.2 MEQ/L (21.0-32.0) Anion Gap 19 MEQ/L (5-15) Estimat Glomerular Filtration Rate 16 ML/MIN (>89) Protein Corrected Calcium 6.8 MG/DL (8.5-10.1) . Result Diagram: 04/18/1841904/18/18419 Microbiology Microbiology Date/Time Source Procedure Growth Status 04/15/18 21:00 Blood Line Aerobic Blood Culture - Preliminary NO GROWTH IN 3 DAYS Resulted 04/15/18 21:00 Blood Line Anaerobic Blood Culture - Preliminary NO GROWTH IN 3 DAYS Resulted 04/16/18 13:24 Sputum Endotracheal Gram Stain - Final Complete 04/16/18 13:24 Sputum Endotracheal Sputum Culture - Final LIGHT GROWTH NORMAL RESPIRATORY ALEXSANDRA Complete . Imaging Last 72 hours Impressions Chest X-Ray 04/18/18599 Signed Impressions: CONCLUSION: Diffuse increased density seen throughout the lungs likely related to diffuse c onsolidation/edema and/or bilateral effusions. Chest X-Ray 04/17/18599 Signed Impressions: CONCLUSION: Cardiomegaly. Bibasilar areas of consolidation/atelectasis and/or effusion. Head CT 04/17/18 Signed Impressions: CONCLUSION: 1. No acute abnormality seen. 2. Persistently dilated ventricles. The ventricles are dilated out of proporti on to sulcal widening which can suggest the presence of normal pressure hydroce phalus in the correct clinical situation. Brain MRI 04/17/18 Signed Impressions: CONCLUSION: 1. Cerebral atrophy and chronic ischemic small vessel vasculopathy. 2. No acute infarction. Lower Extremity Ultrasound 04/16/18 Signed Impressions: CONCLUSION: No venous thrombosis is identified within either lower extremity. Chest X-Ray 04/16/18 Signed Impressions: CONCLUSION: Developing parenchymal opacities and likely effusions right worse than left Arterial Ultrasound 04/16/18 Signed Impressions: CONCLUSION: 1. Severe bilateral lower extremity runoff disease which appears likely unreco nstructible. 2. MRA runoff examination suggested for further evaluation if clinically indic ated. Abdomen Ultrasound 04/16/18 0000 Signed Impressions: CONCLUSION: 1. Mild, diffuse ascites. 2. Increased hepatic echotexture suggesting some degree of fatty infiltration. 3. Large, 12.5 cm cyst in the upper pole cortex of the right kidney. Both kidn eys show some increase in cortical echotexture possibly representing some degre e of medical renal disease. 4. Gallbladder wall thickening. Nonspecific and could represent passive conges tion associated with the diffuse ascites. 5. Central venous catheter is identified within the lumen of the IVC. . Procedures 04/15/2018: Intubation (en route) 04/15/2018: NGT placed 04/15/2018: Central line placement . Assessment and Plan Disease Oriented Problem List: (1) Cardiac arrest (2) Major neurocognitive disorder due to Alzheimer's disease, probable, without behavioral disturbance (3) Acute renal failure (4) CAD (coronary artery disease) (5) Elevated bilirubin Symptom Scale: (1) Pain 0-10 Scale: Unable to quantify Pertinent Non-Medical Issues Psychosocial:Patient is originally from [place], [place]. He was Mcbride Acted on 02/26/2018 secondary to self neglecting behavior and disorganization. Patient was homeless at that time; he has been living at [facility] since being discharged on 03/13/2018. Spiritual: Unknown at this time. Legal: Per [place] statutes, in the absence of written advanced directives healthcare proxy decision making would fall to the patient's niece. Ethical issues impacting care: No known ethical issues impacting care at this time. . Important Contacts Kathryn Manriquez, niece: [phone] . Prognosis 77-year-old male status post cardiac arrest who was started on hypothermia protocol; now with multisystem organ dysfunction. Multisystem organ dysfunction. Overall prognosis is poor. . Code Status: Alternative Code (Intubation only) Plan * ALTERNATE CODE * Decision-making. Patient currently does not have capacity for medical decision -making. Patient is not and has no children. His parents and all of his siblings are . He has a niece (Kathryn Manriquez) who is acting in the role of healthcare proxy decision-maker. * Palliative care spoke to the patient's niece, Kathryn Manriquez, who has decided to forego further diagnostic procedures or aggressive interventions. She requests compassionate withdrawal of artificial life support with transition to comfort focused care. The process of withdrawing the patient from artificial life support was discussed at length. Exhibit B was emailed to the patient's niece for her to review and sign; awaiting returned/signed document. Tentative plan for withdrawal tomorrow 04/19/2018 * Discussed patient with RN (Alta) and Dr. Quinones * Symptom management-pain: Multifactoral. Status post CPR 2; suspected infection, poor circulation, intubation, invasive lines, immobility. Showing no non-verbal signs of discomfort. PRN morphine is available but has not been required. * Symptom management-encephalopathy: Patient with suspected anoxic encephalopathy status post PEA arrest 2. Patient does not respond to any noxious stimuli. No cough or gag. No corneal reflex. CT brain showing enlargement of ventricles with dilatation of the sulci, possible NPH. Decreased density in the periventricular white matter. No hemorrhage EEG revealed diffuse low amplitude slowing consistent with a moderate diffuse encephalopathy. No sharp activity was noted, but this could be considered consistent with some diffuse brain injury. * Palliative care will continue to follow this patient throughout his hospitalization to establish trust, assist with symptom management and clarification of medical treatment goals. . Attestation To help prompt me to consider important information that might be impacting today's encounter and assessment, information from prior notes written by myself or my colleagues may have been "brought forward" into today's note. My signature on this note, however, is an attestation that I personally performed the exam, history, and/or decision-making noted today, and, unless otherwise indicated, the interactions with patient, family, and staff as well as the review of records all occurred today. I also attest that the listed assessment and stated plan reflect my best clinical judgment today based on the combination of historical information, prior notes, and today's exam/ interactions. When time spent is documented, it refers only to time spent today by the signer, or if indicated, combined time spent today by collaborating physician/nurse practitioner. . Winifred Freeman Apr 18, 2018 14:59
[2018-04-18] MEDS ORDERED: CALCIUM GLUCONATE INJ 2 GM in SODIUM CHLORIDE 0.9% INJ 100 ML IV ONE (15:15)
--- NOTE | 2018-04-18 15:22 | HHI.CCPN ---
Subjective Remarks/Hospital Course 77-year-old man presents emergency department from nursing facility following cardiac arrest. Patient was reportedly normal an hour before EMS was called, with a medical check on again he was unresponsive. EMS arrived to find CPR in progress. Initial rhythm of PEA, he has received 2 cycles of CPR and 2 doses of epinephrine with return of spontaneous circulation in route. Then lost pulses again and PEA arrest, responded again to epinephrine. He was intubated. No other history is available. 04/15: Patient remains very critically ill. This morning due to increased pressor requirements patient was started on vasopressin in addition to norepinephrine. He is currently undergoing hypothermia protocol. Continuous oozing from cooling catheter site. Currently on norepinephrine at 12 micrograms per minute and vasopressin at 0.04. Urine output is low. Refractory metabolic acidosis requiring additional bicarb pushes this morning and continues bicarb infusion. He sedated with midazolam and fentanyl infusions. 04/16: Patient continues on vasopressors to maintain MAP greater than 65, echo revealed EF 20%. Rewarming initiated this a.m.. Severe acidosis worsening. Noted ischemic changes bilateral lower extremities no pulses palpated or dopplerable DP, PT, popliteal. Venous and arterial Doppler studies in progress. Patient noted to be in DIC yesterday ,received cryoprecipitate. Fibrinogen level pending. Hemoglobin noted to be 7.2, plan for transfusion packed red blood cells. Cardiology also has been consulted. 04/17: Sedation discontinued last evening. Patient remains encephalopathic. EEG , CT brain pending. Neurology has been consulted. Arterial Doppler bilaterally reveals severe bilateral lower extremity disease, appears non- reconstructable vascular surgery has been consult for review and evaluation. The patient continues on dobutamine at 5 mics and vasopressin to maintain a map of 65. Lactic acid continues to decline or remains unchanged secondary to liver inability to clear lactic acid as well as continued ischemia of bilateral lower extremities, secondary to severe PAD. 04/18: Per palliative care call or contact centre team leader Sam Pete plan for possible comfort care measures to be instituted tomorrow. The patient remains encephalopathic EEG showed moderate diffuse encephalopathy. The patient has been off of sedation for greater than 48 hours without any response. Objective Vital Signs Date Time Temp Pulse Resp B/P (MAP) Pulse Ox O2 Delivery O2 Flow Rate FiO2 04/18/18 11:19 90 35 04/18/18 10:00 81 04/18/18 08:00 98.2 18 128/74 (92) 134/70 (91) 04/15/18 05:48 Ventilator Intake and Output 04/18/18 04/18/18 04/18/18 07:59 15:59 23:59 Intake Total 2325 ml Output Total 500 ml Balance 1825 ml Result Diagram: 04/18/18 0420 04/18/18 0420 Other Results Microbiology Date/Time Source Procedure Growth Status 04/16/18 13:24 Sputum Endotracheal Gram Stain - Final Complete 04/16/18 13:24 Sputum Endotracheal Sputum Culture - Final LIGHT GROWTH NORMAL RESPIRATORY ALEXSANDRA Complete Imaging Last 24 hours Impressions Chest X-Ray 04/15/18 0000 Signed Impressions: CONCLUSION: ET tube in good position. NG tube with tip in the distal esophagus. This should be advanced. Linear atelectasis or consolidation medial left base. Objective Remarks GENERAL: This is a critically ill-appearing elderly gentleman, intubated and nonresponsive SKIN: Chronic stasis changes over bilateral lower extremities, no pulses DP, PT , popliteal B/L lower extremities. Scrotal edema with discoloration. Multiple sites of ecchymosis, B/L upper extremities. B/L lower extremities cool to touch , ecchymotic, mottled HEAD: Normocephalic. Orally intubated EYES: Pupils are equal, small, very sluggishly reactive. Clear are anicteric. NECK: Supple, no rigidity. No JVD CARDIOVASCULAR: Regular heart sounds, no murmurs. RESPIRATORY: Coarse breath sounds bilateral. Good air entry. No wheezes. GASTROINTESTINAL: Abdomen soft, non-tender, nondistended. Bowel sounds are present. MUSCULOSKELETAL: No cyanosis, or edema. Complete discoloration bilateral lower extremities from the knees distal to bilateral feet, no pulses noted no capillary refill and/or sluggish refill in multiple areas NEURO EXAM: GCS 3 T. intubated. Nonresponsive. Does not withdraw to painful stimuli. pupils are equal, small and very sluggishly reactive. No cough, corneal, or gag reflexes. A/P Problem List: (1) Anemia ICD Code: D64.9 - Anemia, unspecified Status: Acute (2) Ischemic dilated cardiomyopathy ICD Code: I25.5 - Ischemic cardiomyopathy; I42.0 - Dilated cardiomyopathy Status: Chronic (3) Acute renal failure ICD Code: N17.9 - Acute kidney failure, unspecified Status: Acute (4) Cardiac arrest ICD Code: I46.9 - Cardiac arrest, cause unspecified (5) CAD (coronary artery disease) ICD Code: I25.10 - Atherosclerotic heart disease of [place] coronary artery without angina pectoris Status: Chronic (6) Hypertension ICD Code: I10 - Essential (primary) hypertension Status: Chronic (7) Bandemia without diagnosis of specific infection ICD Code: D72.825 - Bandemia Status: Acute (8) Thrombocytopenia ICD Code: D69.6 - Thrombocytopenia, unspecified Status: Acute (9) PAD (peripheral artery disease) ICD Code: I73.9 - Peripheral vascular disease, unspecified Status: Chronic (10) Pulmonary hypertension ICD Code: I27.20 - Pulmonary hypertension, unspecified Status: Chronic (11) Cardiomegaly ICD Code: I51.7 - Cardiomegaly Status: Chronic (12) CHF (congestive heart failure) ICD Code: I50.9 - Heart failure, unspecified Status: Chronic Assessment and Plan Plan by systems: Neurologic: Possible anoxic encephalopathy S/P Cardiac Arrest Sedation vacation upon completion of rewarming Neurology consulted for evaluation 04/17- EEG-moderate diffuse encephalopathy 04/15- CT brain-old lacunar infarct, no MLS, possible normal pressure hydrocephalus Continue stress dose steroids-hydrocortisone Trend ammonia level Respiratory: Acute respiratory failure Maintain O2 saturation greater than 92 % FiO2 currently at 35% Continue bronchodilators every 6 hours scheduled every 2 hours as needed Patient off sedation greater than 48 hours no respiratory effort noted Ventilator bundle Cardiovascular: S/P PEA arrest Essential hypertension PAD Ischemic cardiomyopathy Cardiomegaly NSTEMI Cardiogenic shock 04/15-hypothermia protocol initiated 04/16-rewarming initiated 04/15-echo EF 20% trace MVR, trace AVR, moderate pulmonary hypertension, moderate left pleural effusion 04/16-patient continues on vasopressin 0.04, and norepinephrine 2 mcgs/min 04/16-Cardiology following- Dr. Forrest, no interventions are planned 04/16-arterial Doppler bilateralsevere bilateral lower extremity runoff disease Most likely on reconstructable. Left lower extremity severe diffuse runoff disease. Right SFA occlusion with severe diffuse runoff disease and no viable distal target vessels visualized Renal: MERCEDES Rhabdomyolysis Nephrology was consulted, however discussion with patient's niece patient would not want dialysis. Patient is not a candidate for dialysis per evaluation -- Strict I/Os FEN/GI: Metabolic acidosis Lactic acidemia Hyperammonemia Shock liver-elevated LFT's Continue sodium bicarbonate infusion Continue serial lactate levels-inability of liver to clear lactate secondary to shock liver, and continued ischemia bilateral lower extremities Replete electrolytes per ICU protocol LFTs downtrending, continue to monitor CMP Lactulose 4 times daily Heme/ID: Anemia Thrombocytopenia Bandemia Coagulopathy Blood cultures- NGTD Urine culture- pending Obtain sputum culture Continue empiric antibiotics vancomycin and Zosyn (day 3) S/P 1 cryoprecipitate, 4 units of FFP (04/15), F/U fibrinogen level Hemoglobin 7.2-transfusion 2 units packed red blood cells (04/16) INR 2.3, continue to monitor Endocrine: Glucose monitoring per ICU protocol low dose regimen -- SSI Prophylaxis: GI Prophylaxis Famotidine DVT Prophylaxis -- SCDs No pharmacological DVT prophylaxis in the setting of thrombocytopenia Lines: Right femoral hypothermic cooling catheter, radial arterial line, peripheral IVs 2. Dispo: my billing statement This patient remains critically ill with one or more organ systems which are or may become a threat to life. I have spent in excess of 30 minutes discontinuously in the care and management of this patient. This time is exclusive of procedures, and includes, but is not limited to, evaluation of the patient, review of the medical record, discussions with family, consultants, nursing staff, or respiratory therapy, and documentation in the medical record. The patient remains critically ill, with continued elevation lactic acidemia. Continues on vasopressor support. Prognosis is poor. Palliative care has been consulted, to define goals of care. Carlos Enrique Kathryn Manriquez [phone] Telephone discussion with Ms. Manriquez this afternoon, next of kin. Provided medical status update. Tentative plan for comfort care measures to be instituted tomorrow , she has requested past oral/seed and fertilizer specialist support , during the process. All questions answered. Physician Monica Quinones Problem Qualifiers (1) CHF (congestive heart failure): Monica Quinones MD Apr 18, 2018 15:22
[2018-04-18] MEDS ORDERED: DOBUTamine INJ 500 MG in DEXTROSE 5% IN WATER INJ 210 ML IV PRN ×2 (20:45)
[2018-04-19] VITALS (11 sets, daily range): BP systolic 114–135; BP diastolic 68–80; PULSE 80–85; RESP 18–19; TEMP 96.4–98; O2SAT 96–100
[2018-04-19] MEDS: RESP: ALBUTEROL 2.5 MG/IPRATROPIUM 0.5 MG NEB (SCH) NEB ×2 (03:22→08:40)
[2018-04-19] MEDS: CHLORHEXIDINE GLUCONATE 2 % 1 PACK (2 CLOTHS) TOP SCH (04:00)
[2018-04-19] MEDS: PIPERACIL-TAZO 2.25 GM PREMIX 50 ML IV SCH ×2 (04:40→08:19)
--- NOTE | 2018-04-19 05:56 | RADRPT ---
EXAM DATE: 04/19/2018 5:40 AM EDT AGE/SEX: 77 years / Male INDICATIONS: Follow up respiratory status. CLINICAL DATA: This is the patient's subsequent encounter. Patient reports that signs and symptoms h ave been present for 4 - 6 days and indicates a pain score of Nonresponsive. MEDICAL/SURGICAL HISTORY: None. None. COMPARISON: [facility] – [place], CHEST SINGLE AP, 04/18/2018. . FINDINGS: Basilar airspace disease pleural effusions similar to April 18. No pneumothorax. Endotracheal tube and nasogastric tube unchanged. Right inferior vena cava catheter tip in right atrium. CONCLUSION: Support apparatus unchanged. Bilateral mostly basilar airspace disease and pleural effusions similar to April 10, 2018. Electronically signed by: Rome Piedra MD 04/19/2018 5:55 AM EDT
[2018-04-19] MEDS: INSULIN NovoLIN REGULAR SUPPLEMENTAL SCALE SQ SCH ×2 (08:00→12:00)
[2018-04-19] MEDS: HYDROCORTISONE SOD SUCCINATE 100 MG VIAL IV PUSH SCH ×2 (08:18→12:28)
[2018-04-19] MEDS: LACTULOSE SYRUP 20 GM/30 ML CUP PO SCH ×2 (08:18→12:17)
[2018-04-19] MEDS: FAMOTIDINE 20 MG/2 ML VIAL IV PUSH SCH (08:18)
[2018-04-19] MEDS: CHLORHEXIDINE 0.12% (ORAL KIT) 15 ML CUP MT SCH (08:19)
[2018-04-19] MEDS: SODIUM CHLORIDE 0.9% FLUSH 10 ML FLUSH IV FLUSH SCH (08:19)
[2018-04-19] MEDS: DOCUSATE SODIUM 50 MG/SENNA 8.6 MG TAB PO SCH (08:19)
[2018-04-19] MEDS: ARTIFICIAL TEARS OPTH SOLN 15 ML BTL EACH EYE SCH ×2 (08:19→12:17)
[2018-04-19 08:45] LABS: AUTOMATED NEUTROPHIL # 11.5 TH/MM3 (1.8-7.7); BASOPHIL % 0.3 % (0.0-2.0); HEMATOCRIT 34.7 % (39.0-51.0); HEMOGLOBIN 11.7 GM/DL (13.0-17.0); LYMPH % 3.4 % (9.0-44.0); LYMPHOCYTE # 0.4 TH/MM3 (1.0-4.8); MEAN CELL VOLUME 90.2 FL (80.0-100.0); MEAN CORPUSCULAR HEMOGLOBIN 30.5 PG (27.0-34.0); MEAN CORPUSCULAR HGB CONC 33.8 % (32.0-36.0); MEAN PLATELET VOLUME 11.8 FL (7.0-11.0); MONO % 5.3 % (0.0-8.0); MONOCYTE # 0.7 TH/MM3 (0-0.9); PLATELET COUNT 47 TH/MM3 (150-450); RED BLOOD COUNT 3.85 MIL/MM3 (4.50-5.90); RED CELL DISTRIBUTION WIDTH 16.2 % (11.6-17.2); WHITE BLOOD COUNT 12.6 TH/MM3 (4.0-11.0)
[2018-04-19 09:29] LABS: ALBUMIN 1.7 GM/DL (3.4-5.0); BICARBONATE 29.4 MEQ/L (21.0-32.0); CALCIUM 5.7 MG/DL (8.5-10.1); CREATININE 4.27 MG/DL (0.60-1.30); MAGNESIUM 1.8 MG/DL (1.5-2.5); PHOSPHORUS 5.4 MG/DL (2.5-4.9); RANDOM VANCOMYCIN 20.7 COMMENT; TOTAL BILIRUBIN ADULT 9.1 MG/DL (0.2-1.0); TOTAL PROTEIN 4.1 GM/DL (6.4-8.2)
[2018-04-19 09:32] LABS: CALCIUM-PROTEIN CORRECTED 7.1 MG/DL (8.5-10.1)
[2018-04-19 10:07] LABS: BANDS 4 % (0-6); CORRECTED NUCLEATED RBC 1 /100 WBC (0-0); LYMPHOCYTES 1 % (9-44); METAMYELOCYTES 2 % (0-1); MONOCYTES 6 % (0-8); MYELOCYTES 1 % (0-0); NEUTROPHIL # MANUAL DIFF 11.7 TH/MM3 (1.8-7.7); NUCLEATED RED BLOOD CELL 1 (0-0); POLYS (SEG NEUTROPHILS) 86 % (16-70)
[2018-04-19] MEDS ORDERED: HYDROmorphone HCL PF 2 MG/ML VIAL IV PUSH ONE ×2 (13:45→14:00)
[2018-04-19] MEDS ORDERED: HYOSCYAMINE 0.5 MG/ML AMP IV PUSH ONE (13:45)
[2018-04-19] MEDS ORDERED: LORazepam 2 MG/ML VIAL IV PUSH ONE ×2 (13:45→14:00)
--- NOTE | 2018-04-19 14:07 | HHI.CCPN ---
Subjective Remarks/Hospital Course 77-year-old man presents emergency department from nursing facility following cardiac arrest. Patient was reportedly normal an hour before EMS was called, with a medical check on again he was unresponsive. EMS arrived to find CPR in progress. Initial rhythm of PEA, he has received 2 cycles of CPR and 2 doses of epinephrine with return of spontaneous circulation in route. Then lost pulses again and PEA arrest, responded again to epinephrine. He was intubated. No other history is available. 04/15: Patient remains very critically ill. This morning due to increased pressor requirements patient was started on vasopressin in addition to norepinephrine. He is currently undergoing hypothermia protocol. Continuous oozing from cooling catheter site. Currently on norepinephrine at 12 micrograms per minute and vasopressin at 0.04. Urine output is low. Refractory metabolic acidosis requiring additional bicarb pushes this morning and continues bicarb infusion. He sedated with midazolam and fentanyl infusions. 04/16: Patient continues on vasopressors to maintain MAP greater than 65, echo revealed EF 20%. Rewarming initiated this a.m.. Severe acidosis worsening. Noted ischemic changes bilateral lower extremities no pulses palpated or dopplerable DP, PT, popliteal. Venous and arterial Doppler studies in progress. Patient noted to be in DIC yesterday ,received cryoprecipitate. Fibrinogen level pending. Hemoglobin noted to be 7.2, plan for transfusion packed red blood cells. Cardiology also has been consulted. 04/17: Sedation discontinued last evening. Patient remains encephalopathic. EEG , CT brain pending. Neurology has been consulted. Arterial Doppler bilaterally reveals severe bilateral lower extremity disease, appears non- reconstructable vascular surgery has been consult for review and evaluation. The patient continues on dobutamine at 5 mics and vasopressin to maintain a map of 65. Lactic acid continues to decline or remains unchanged secondary to liver inability to clear lactic acid as well as continued ischemia of bilateral lower extremities, secondary to severe PAD. 04/18: Per palliative care body team member Sam Pete plan for possible comfort care measures to be instituted tomorrow. The patient remains encephalopathic EEG showed moderate diffuse encephalopathy. The patient has been off of sedation for greater than 48 hours without any response. 04/19: No change in neurological status no change in neurological status. Rhabdomyolysis, creatinine kinase enzymes and lactic acid continue to increase secondary. Comfort care measures to be initiated this afternoon. Objective Vital Signs Date Time Temp Pulse Resp B/P (MAP) Pulse Ox O2 Delivery O2 Flow Rate FiO2 04/19/18 12:00 35 04/19/18 12:00 82 04/19/18 12:00 96.4 18 114/71 (85) 100 127/71 (89) Intake and Output 04/19/18 04/19/18 04/20/18 08:00 16:00 00:00 Intake Total 329 ml Output Total 720 ml Balance -391 ml Result Diagram: 04/19/18 0810 04/19/18 0810 Imaging Last 24 hours Impressions Chest X-Ray 04/15/18 0000 Signed Impressions: CONCLUSION: ET tube in good position. NG tube with tip in the distal esophagus. This should be advanced. Linear atelectasis or consolidation medial left base. Objective Remarks GENERAL: This is a critically ill-appearing elderly gentleman, intubated and nonresponsive SKIN: Chronic stasis changes over bilateral lower extremities, no pulses DP, PT , popliteal B/L lower extremities. Scrotal edema with discoloration. Multiple sites of ecchymosis, B/L upper extremities. B/L lower extremities cool to touch , ecchymotic, mottled,. HEAD: Normocephalic. Orally intubated EYES: Pupils are equal, small, very sluggishly reactive. Clear are anicteric. NECK: Supple, no rigidity. No JVD CARDIOVASCULAR: Regular heart sounds, no murmurs. RESPIRATORY: Coarse breath sounds bilateral. Good air entry. No wheezes. GASTROINTESTINAL: Abdomen soft, non-tender, nondistended. Bowel sounds are present. MUSCULOSKELETAL: No cyanosis, or edema. Complete discoloration bilateral lower extremities from the knees distal to bilateral feet, no pulses noted no capillary refill and/or sluggish refill in multiple areas NEURO EXAM: GCS 3 T. intubated. Nonresponsive. Does not withdraw to painful stimuli. pupils are equal, small and very sluggishly reactive. No cough, corneal, or gag reflexes. A/P Problem List: (1) Anemia ICD Code: D64.9 - Anemia, unspecified Status: Acute (2) Ischemic dilated cardiomyopathy ICD Code: I25.5 - Ischemic cardiomyopathy; I42.0 - Dilated cardiomyopathy Status: Chronic (3) Acute renal failure ICD Code: N17.9 - Acute kidney failure, unspecified Status: Acute (4) Cardiac arrest ICD Code: I46.9 - Cardiac arrest, cause unspecified (5) CAD (coronary artery disease) ICD Code: I25.10 - Atherosclerotic heart disease of [place] coronary artery without angina pectoris Status: Chronic (6) Hypertension ICD Code: I10 - Essential (primary) hypertension Status: Chronic (7) Bandemia without diagnosis of specific infection ICD Code: D72.825 - Bandemia Status: Acute (8) Thrombocytopenia ICD Code: D69.6 - Thrombocytopenia, unspecified Status: Acute (9) PAD (peripheral artery disease) ICD Code: I73.9 - Peripheral vascular disease, unspecified Status: Chronic (10) Pulmonary hypertension ICD Code: I27.20 - Pulmonary hypertension, unspecified Status: Chronic (11) Cardiomegaly ICD Code: I51.7 - Cardiomegaly Status: Chronic (12) CHF (congestive heart failure) ICD Code: I50.9 - Heart failure, unspecified Status: Chronic Assessment and Plan Plan by systems: Neurologic: Possible anoxic encephalopathy S/P Cardiac Arrest Neurology consulted for evaluation 04/17- EEG-moderate diffuse encephalopathy 04/15- CT brain-old lacunar infarct, no MLS, possible normal pressure hydrocephalus Respiratory: Acute respiratory failure Maintain O2 saturation greater than 92 % FiO2 currently at 35% Continue bronchodilators every 6 hours scheduled every 2 hours as needed Ventilator bundle Cardiovascular: S/P PEA arrest Essential hypertension PAD Ischemic cardiomyopathy Cardiomegaly NSTEMI Cardiogenic shock 04/15-hypothermia protocol initiated 04/16-rewarming initiated 04/15-echo EF 20% trace MVR, trace AVR, moderate pulmonary hypertension, moderate left pleural effusion 04/16-patient continues on vasopressin 0.04, and norepinephrine 2 mcgs/min 04/16-Cardiology following- Dr. Forrest, no interventions are planned 04/16-arterial Doppler bilateralsevere bilateral lower extremity runoff disease Most likely non reconstructable. Left lower extremity severe diffuse runoff disease. Right SFA occlusion with severe diffuse runoff disease and no viable distal target vessels visualized Renal: MERCEDES Rhabdomyolysis Nephrology was consulted, however discussion with patient's niece patient would not want dialysis. Patient is not a candidate for dialysis per evaluation -- Strict I/Os FEN/GI: Metabolic acidosis Lactic acidemia Hyperammonemia Shock liver-elevated LFT's Continue sodium bicarbonate infusion Replete electrolytes per ICU protocol LFTs downtrending, continue to monitor CMP Heme/ID: Anemia Thrombocytopenia Bandemia Coagulopathy Blood cultures- NGTD Urine culture- pending Obtain sputum culture Continue empiric antibiotics vancomycin and Zosyn (day 3) S/P 1 cryoprecipitate, 4 units of FFP (04/15), F/U fibrinogen level Hemoglobin 7.2-transfusion 2 units packed red blood cells (04/16) Endocrine: Glucose monitoring per ICU protocol low dose regimen -- SSI Prophylaxis: GI Prophylaxis Famotidine DVT Prophylaxis -- SCDs No pharmacological DVT prophylaxis in the setting of thrombocytopenia Lines: Right femoral hypothermic cooling catheter, radial arterial line, peripheral IVs 2. Dispo: my billing statement This patient remains critically ill with one or more organ systems which are or may become a threat to life. I have spent in excess of 31 minutes discontinuously in the care and management of this patient. This time is exclusive of procedures, and includes, but is not limited to, evaluation of the patient, review of the medical record, discussions with family, consultants, nursing staff, or respiratory therapy, and documentation in the medical record. D/W Stock Car Driver and MICROBIOLOGY TECHNICIAN at bedside- Plans for Comfort Care measures to be instituted. Physician Monica Quinones Problem Qualifiers (1) CHF (congestive heart failure): Monica Quinones MD Apr 19, 2018 14:06
[2018-04-19] MEDS ORDERED: FUROSEMIDE 20 MG/2 ML VIAL IV PUSH PRN (14:15)
[2018-04-19] MEDS ORDERED: LORazepam 2 MG/ML VIAL IV PUSH PRN ×3 (14:15)
[2018-04-19] MEDS ORDERED: ACETAMINOPHEN 650 MG SUPP RECTAL PRN (14:15)
[2018-04-19] MEDS ORDERED: BISACODYL 10 MG SUPP RECTAL PRN (14:15)
[2018-04-19] MEDS ORDERED: HYOSCYAMINE 0.5 MG/ML AMP IV PUSH PRN (14:15)
[2018-04-19] MEDS ORDERED: HYDROmorphone HCL PF 2 MG/ML VIAL IV PUSH PRN ×2 (14:15)
--- NOTE | 2018-04-19 14:18 | HHI.HCPN ---
Reason for visit a. To assist with evaluation and management of symptoms including: pain, encephalopathy b. To assist medical decision maker(s) with: better understanding of current medical conditions; weighing benefits/burdens of medical treatment options; making medical treatment decisions. . Subjective/Interval History Mr. Fountain is a 77-year-old male care home resident who presented to [place] ED status post PEA arrest x 2 with prolonged CPR. He was intubated en route. Upon arrival to the hospital, hypothermia protocol was initiated. Follow-up visit for symptom management and clarification of medical treatment goals. Patient was seen and assessed in the intensive care unit, room 525. No family was present. Patient remains intubated on mechanical ventilation. On pressor support, dobutamine and vasopressin, to maintain map >65. Ischemic changes noted in the bilateral lower extremities that are cool to touch and mottled from the toes to the mid thigh. Cardiothoracic surgery evaluated the patient and determined the patient was not a candidate for any further vascular workup or surgical vascular therapy. Echocardiogram on 04/15/2018 showing severely reduced left ventricular systolic function with an estimated EF fraction <20%. Cardiology following. EEG showed moderate diffuse encephalopathy. The patient has been off of sedation for greater than 48 hours without any response. No cough or gag. No corneal reflex. CT brain showing enlargement of ventricles with dilatation of the sulci, possible NPH. Decreased density in the periventricular white matter. No hemorrhage Patient remains oliguric. Creatinine has increased from 1.63 on 04/15/16 to 4.27 today 04/19/18. Family does not was dialysis; nephrology has signed off. Patient's niece has decided to forego further diagnostic procedures and aggressive interventions. She has requested compassionate withdrawal of artificial life support with transition to comfort focused care. Discussed with RN (Alta) and Dr. Quinones. Signed exhibits B and C have been placed on the patient 's chart. Comfort medications have been ordered. . Family/friend interactions See interval history . Advance Directives Advance Directive Specifics Significant change in goals: Family requesting compassionate withdrawal of artificial life support and transition to comfort focused care. . Objective Vital Signs Date Time Temp Pulse Resp B/P (MAP) Pulse Ox O2 Delivery O2 Flow Rate FiO2 04/19/18 12:00 35 04/19/18 12:00 82 04/19/18 12:00 96.4 82 18 114/71 (85) 100 127/71 (89) 04/19/18 11:44 100 35 04/19/18 10:00 81 04/19/18 08:42 100 35 04/19/18 08:00 81 04/19/18 08:00 96.4 81 18 128/78 (95) 100 132/68 (89) 04/19/18 08:00 35 04/19/18 06:00 80 04/19/18 04:00 81 18 129/77 (94) 100 133/69 (90) 04/19/18 04:00 35 04/19/18 04:00 82 04/19/18 03:22 100 35 04/19/18 02:00 80 04/19/18 00:00 81 04/19/18 00:00 98.0 85 19 129/80 (96) 100 135/69 (91) 04/18/18 23:20 100 35 04/18/18 22:14 83 135/71 04/18/18 22:00 84 04/18/18 20:09 100 35 04/18/18 20:00 35 04/18/18 20:00 80 20 131/76 (94) 100 134/68 (90) 04/18/18 20:00 80 04/18/18 18:00 81 04/18/18 16:35 100 35 04/18/18 16:00 80 04/18/18 16:00 35 04/18/18 16:00 97.0 80 18 133/76 (95) 100 133/68 (89) 04/18/18 14:00 80 Intake & Output 04/19/18 04/19/18 07:00 19:00 Intake Total 613 ml Output Total 720 ml Balance -107 ml Intake Oral 0 ml IV Total 613 ml Output Urine Total 20 ml Gastric Drainage Total 700 ml # Bowel Movements 0 . Physical Exam CONSTITUTIONAL/GENERAL: This is an elderly, male patient currently intubated on mechanical ventilation. TUBES/LINES/DRAINS: CVL, PIV x 4, horton, ETT, arterial line SKIN: Jaundice. Ecchymoses on upper extremities. Multiple skin tear on BUE. Not diaphoretic. Chronic stasis changes over bilateral lower extremities HEAD: Atraumatic. Normocephalic. EYES: Pupils pinpoint, nonreactive. No injection or drainage. ENT: Nose without bleeding or purulent drainage. Tongue appears black NECK: Trachea midline. Supple, nontender. No palpable thyroid enlargement or nodularity. CARDIOVASCULAR: Regular rate and rhythm without murmurs. Bilateral lower extremities are cool to touch and mottled RESPIRATORY/CHEST: Intubated on mechanical ventilation. Coarse air exchange. GASTROINTESTINAL: Abdomen soft, non-tender, nondistended. No guarding. Bowel sounds present. GENITOURINARY: Without palpable bladder distension. Horton catheter in place- scant urine output MUSCULOSKELETAL: Extremities are edematous. LYMPHATICS: No palpable cervical or supraclavicular adenopathy. NEUROLOGICAL: Sedated. Unresponsive. Does not withdraw to noxious stimuli. PSYCHIATRIC: Unable to assess given current clinical condition. . Diagnostic Tests Laboratory Laboratory Tests Test 04/16/18 21:35 04/17/18 04:04 04/17/18 04:05 04/17/18 10:18 Blood Gas Puncture Site ART LINE SANDRA Blood Gas Patient Temperature 98.6 98.6 Blood Gas HCO3 12 mmol/L (22-26) 19 mmol/L (22-26) Blood Gas Base Excess -12.0 mmol/L (-2-2) -3.4 mmol/L (-2-2) Blood Gas Oxygen Saturation 97 % (90-100) 97 % (90-100) Arterial Blood pH 7.39 (7.380-7.420) 7.50 (7.380-7.420) Arterial Blood Partial Pressure CO2 20 mmHg (38-42) 25 mmHg (38-42) Arterial Blood Partial Pressure O2 205 mmHg (61-120) 168 mmHg (61-120) Arterial Blood Oxygen Content 15.1 Vol % (12.0-20.0) 14.6 Vol % (12.0-20.0) Arterial Blood Carboxyhemoglobin 0.9 % (0-4) 1.0 % (0-4) Arterial Blood Methemoglobin 1.4 % (0-2) 1.3 % (0-2) Blood Gas Hemoglobin 10.8 G/DL (12.0-16.0) 10.4 G/DL (12.0-16.0) Oxygen Delivery Device VENTILATOR VENTILATOR Blood Gas Ventilator Setting PRVC / AC / SEE COMMENTS Blood Gas Inspired Oxygen 45 % 35 % White Blood Count 13.0 TH/MM3 (4.0-11.0) Red Blood Count 3.27 MIL/MM3 (4.50-5.90) Hemoglobin 10.1 GM/DL (13.0-17.0) Hematocrit 30.4 % (39.0-51.0) Mean Corpuscular Volume 92.9 FL (80.0-100.0) Mean Corpuscular Hemoglobin 30.9 PG (27.0-34.0) Mean Corpuscular Hemoglobin Concent 33.3 % (32.0-36.0) Red Cell Distribution Width 16.4 % (11.6-17.2) Platelet Count 59 TH/MM3 (150-450) Mean Platelet Volume 11.3 FL (7.0-11.0) Neutrophils (%) (Auto) 90.3 % (16.0-70.0) Lymphocytes (%) (Auto) 3.7 % (9.0-44.0) Monocytes (%) (Auto) 2.7 % (0.0-8.0) Eosinophils (%) (Auto) 2.0 % (0.0-4.0) Basophils (%) (Auto) 1.3 % (0.0-2.0) Neutrophils # (Auto) 11.7 TH/MM3 (1.8-7.7) Lymphocytes # (Auto) 0.5 TH/MM3 (1.0-4.8) Monocytes # (Auto) 0.3 TH/MM3 (0-0.9) Eosinophils # (Auto) 0.3 TH/MM3 (0-0.4) Basophils # (Auto) 0.2 TH/MM3 (0-0.2) CBC Comment AUTO DIFF Differential Total Cells Counted 100 Neutrophils % (Manual) 44 % (16-70) Band Neutrophils % 48 % (0-6) Lymphocytes % 1 % (9-44) Neutrophils # (Manual) 12.9 TH/MM3 (1.8-7.7) Metamyelocytes 7 % (0-1) Nucleated Red Blood Cells 5 /100 WBC (0-0) Differential Comment FINAL DIFF MANUAL Toxic Vacuolation PRESENT (NONE SEEN) Dohle Bodies PRESENT (NONE SEEN) Platelet Estimate LOW (NORMAL) Platelet Morphology Comment ENLARGED (NORMAL) Prothrombin Time 31.7 SEC (9.8-11.6) Prothromb Time International Ratio 3.1 RATIO Blood Urea Nitrogen 39 MG/DL (7-18) Creatinine 3.05 MG/DL (0.60-1.30) Random Glucose 125 MG/DL (74-106) Total Protein 4.2 GM/DL (6.4-8.2) Albumin 2.0 GM/DL (3.4-5.0) Calcium Level 5.9 MG/DL (8.5-10.1) Phosphorus Level 7.4 MG/DL (2.5-4.9) Magnesium Level 1.8 MG/DL (1.5-2.5) Alkaline Phosphatase 190 U/L (45-117) Aspartate Amino Transf (AST/SGOT) 8331 U/L (15-37) Alanine Aminotransferase (ALT/SGPT) 3769 U/L (12-78) Total Bilirubin 4.0 MG/DL (0.2-1.0) Sodium Level 141 MEQ/L (136-145) Potassium Level 4.7 MEQ/L (3.5-5.1) Chloride Level 98 MEQ/L (98-107) Carbon Dioxide Level 16.3 MEQ/L (21.0-32.0) Anion Gap 27 MEQ/L (5-15) Estimat Glomerular Filtration Rate 20 ML/MIN (>89) Protein Corrected Calcium 7.3 MG/DL (8.5-10.1) Total Creatine Kinase 5736 U/L (39-308) Creatine Kinase MB 89.1 NG/ML (0.5-3.6) Creatine Kinase MB % 1.6 % (0.0-4.0) Random Vancomycin Level 26.2 COMMENT Lactic Acid Level 15.7 mmol/L (0.4-2.0) Ammonia 105 MCMOL/L (11-32) Test 04/17/18 19:04 04/18/18 04:20 04/19/18 08:10 Lactic Acid Level 12.8 mmol/L (0.4-2.0) 8.6 mmol/L (0.4-2.0) Total Creatine Kinase 7633 U/L (39-308) 8074 U/L (39-308) Creatine Kinase MB 96.9 NG/ML (0.5-3.6) 94.4 NG/ML (0.5-3.6) Creatine Kinase MB % 1.3 % (0.0-4.0) 1.2 % (0.0-4.0) White Blood Count 13.8 TH/MM3 (4.0-11.0) 12.6 TH/MM3 (4.0-11.0) Red Blood Count 3.71 MIL/MM3 (4.50-5.90) 3.85 MIL/MM3 (4.50-5.90) Hemoglobin 11.1 GM/DL (13.0-17.0) 11.7 GM/DL (13.0-17.0) Hematocrit 33.9 % (39.0-51.0) 34.7 % (39.0-51.0) Mean Corpuscular Volume 91.4 FL (80.0-100.0) 90.2 FL (80.0-100.0) Mean Corpuscular Hemoglobin 29.9 PG (27.0-34.0) 30.5 PG (27.0-34.0) Mean Corpuscular Hemoglobin Concent 32.7 % (32.0-36.0) 33.8 % (32.0-36.0) Red Cell Distribution Width 16.2 % (11.6-17.2) 16.2 % (11.6-17.2) Platelet Count 59 TH/MM3 (150-450) 47 TH/MM3 (150-450) Mean Platelet Volume 11.2 FL (7.0-11.0) 11.8 FL (7.0-11.0) CBC Comment AUTO DIFF AUTO DIFF Differential Total Cells Counted 100 100 Neutrophils % (Manual) 77 % (16-70) 86 % (16-70) Band Neutrophils % 18 % (0-6) 4 % (0-6) Lymphocytes % 4 % (9-44) 1 % (9-44) Monocytes % 1 % (0-8) 6 % (0-8) Neutrophils # (Manual) 13.1 TH/MM3 (1.8-7.7) 11.7 TH/MM3 (1.8-7.7) Nucleated Red Blood Cells 3 /100 WBC (0-0) 1 /100 WBC (0-0) Differential Comment FINAL DIFF MANUAL FINAL DIFF MANUAL Toxic Granulation 1+ (NORMAL) Platelet Estimate LOW (NORMAL) LOW (NORMAL) Platelet Morphology Comment NORMAL (NORMAL) ENLARGED (NORMAL) Blood Urea Nitrogen 48 MG/DL (7-18) 60 MG/DL (7-18) Creatinine 3.62 MG/DL (0.60-1.30) 4.27 MG/DL (0.60-1.30) Random Glucose 168 MG/DL (74-106) 156 MG/DL (74-106) Total Protein 4.1 GM/DL (6.4-8.2) 4.1 GM/DL (6.4-8.2) Albumin 1.8 GM/DL (3.4-5.0) 1.7 GM/DL (3.4-5.0) Calcium Level 5.5 MG/DL (8.5-10.1) 5.7 MG/DL (8.5-10.1) Phosphorus Level 6.2 MG/DL (2.5-4.9) 5.4 MG/DL (2.5-4.9) Magnesium Level 1.8 MG/DL (1.5-2.5) 1.8 MG/DL (1.5-2.5) Alkaline Phosphatase 185 U/L (45-117) 179 U/L (45-117) Aspartate Amino Transf (AST/SGOT) 4655 U/L (15-37) 1361 U/L (15-37) Alanine Aminotransferase (ALT/SGPT) 3442 U/L (12-78) 2307 U/L (12-78) Total Bilirubin 6.0 MG/DL (0.2-1.0) 9.1 MG/DL (0.2-1.0) Sodium Level 140 MEQ/L (136-145) 138 MEQ/L (136-145) Potassium Level 4.1 MEQ/L (3.5-5.1) 4.0 MEQ/L (3.5-5.1) Chloride Level 94 MEQ/L (98-107) 90 MEQ/L (98-107) Carbon Dioxide Level 27.2 MEQ/L (21.0-32.0) 29.4 MEQ/L (21.0-32.0) Anion Gap 19 MEQ/L (5-15) 19 MEQ/L (5-15) Estimat Glomerular Filtration Rate 16 ML/MIN (>89) 14 ML/MIN (>89) Protein Corrected Calcium 6.8 MG/DL (8.5-10.1) 7.1 MG/DL (8.5-10.1) Ammonia 62 MCMOL/L (11-32) 24 MCMOL/L (11-32) Neutrophils (%) (Auto) 91.0 % (16.0-70.0) Lymphocytes (%) (Auto) 3.4 % (9.0-44.0) Monocytes (%) (Auto) 5.3 % (0.0-8.0) Eosinophils (%) (Auto) 0.0 % (0.0-4.0) Basophils (%) (Auto) 0.3 % (0.0-2.0) Neutrophils # (Auto) 11.5 TH/MM3 (1.8-7.7) Lymphocytes # (Auto) 0.4 TH/MM3 (1.0-4.8) Monocytes # (Auto) 0.7 TH/MM3 (0-0.9) Eosinophils # (Auto) 0.0 TH/MM3 (0-0.4) Basophils # (Auto) 0.0 TH/MM3 (0-0.2) Metamyelocytes 2 % (0-1) Myelocytes 1 % (0-0) Red Cell Morphology Comment NORMAL (NORMAL) Random Vancomycin Level 20.7 COMMENT . Result Diagram: 04/19/18 0810 04/19/18 0810 Imaging Last 72 hours Impressions Chest X-Ray 04/19/18 06 Signed Impressions: CONCLUSION: Support apparatus unchanged. Bilateral mostly basilar airspace disease and pleu ral effusions similar to April 10, 2018. Chest X-Ray 04/18/18 06 Signed Impressions: CONCLUSION: Diffuse increased density seen throughout the lungs likely related to diffuse c onsolidation/edema and/or bilateral effusions. Chest X-Ray 04/17/18 0600 Signed Impressions: CONCLUSION: Cardiomegaly. Bibasilar areas of consolidation/atelectasis and/or effusion. Head CT 04/17/18 0000 Signed Impressions: CONCLUSION: 1. No acute abnormality seen. 2. Persistently dilated ventricles. The ventricles are dilated out of proporti on to sulcal widening which can suggest the presence of normal pressure hydroce phalus in the correct clinical situation. Brain MRI 04/17/18 0000 Signed Impressions: CONCLUSION: 1. Cerebral atrophy and chronic ischemic small vessel vasculopathy. 2. No acute infarction. . Procedures 04/15/2018: Intubation (en route) 04/15/2018: NGT placed 04/15/2018: Central line placement . Assessment and Plan Disease Oriented Problem List: (1) Cardiac arrest (2) Major neurocognitive disorder due to Alzheimer's disease, probable, without behavioral disturbance (3) Acute renal failure (4) CAD (coronary artery disease) (5) Elevated bilirubin Symptom Scale: (1) Pain 0-10 Scale: Unable to quantify Pertinent Non-Medical Issues Psychosocial:Patient is originally from [place], [place]. He was [facility] Acted on 02/26/2018 secondary to self neglecting behavior and disorganization. Patient was homeless at that time; he has been living at [facility] since being discharged on 03/13/2018. Spiritual: Unknown at this time. Legal: Per [place] statutes, in the absence of written advanced directives healthcare proxy decision making would fall to the patient's niece. Ethical issues impacting care: No known ethical issues impacting care at this time. . Important Contacts Kathryn Manriquez, niece: [phone] . Prognosis 77-year-old male status post cardiac arrest who was started on hypothermia protocol; now with multisystem organ dysfunction. Multisystem organ dysfunction. Overall prognosis is poor. . Code Status: No Code Plan * NO CODE * Decision-making. Patient currently does not have capacity for medical decision -making. Patient is not and has no children. His parents and all of his siblings are . He has a niece (Kathryn Manriquez) who is acting in the role of healthcare proxy decision-maker. * Patient's niece has decided to forego further diagnostic procedures and aggressive interventions. She has requested compassionate withdrawal of artificial life support with transition to comfort focused care. Discussed with RN (Alta) and Dr. Quinones. Signed exhibits B and C have been placed on the patient 's chart. Comfort medications have been ordered. * Discussed patient with RN (Alta) and Dr. Quinones * Discussed advanced care planning with the patient's niece (Kathryn Manriquez), per her request, via telephone. Specifically addressed the process of compassionately withdrawing artificial life support. Anticipatory guidance provided. Total time spent equals 20 minutes. * Symptom management-pain: Multifactoral. Status post CPR 2; suspected infection, poor circulation, intubation, invasive lines, immobility. Showing no non-verbal signs of discomfort. PRN morphine is available but has not been required. * Symptom management-encephalopathy: Patient with suspected anoxic encephalopathy status post PEA arrest 2. Patient does not respond to any noxious stimuli. No cough or gag. No corneal reflex. CT brain showing enlargement of ventricles with dilatation of the sulci, possible NPH. Decreased density in the periventricular white matter. No hemorrhage EEG revealed diffuse low amplitude slowing consistent with a moderate diffuse encephalopathy. No sharp activity was noted, but this could be considered consistent with some diffuse brain injury. * Palliative care will continue to follow this patient throughout his hospitalization to establish trust, assist with symptom management and clarification of medical treatment goals. . Time Spent Total Floor Time (mins): 55 (Time to include review of notes, patient exam and collaboration with medical team. Discussed advanced care planning with the patient's niece (Kathryn Manriquez), per her request, via telephone. Specifically addressed the process of compassionately withdrawing artificial life support. Anticipatory guidance provided. Total time spent equals 20 minutes.) Face to Face Time (mins): 15 >50% Counseling/Coord of Care: Yes Attestation To help prompt me to consider important information that might be impacting today's encounter and assessment, information from prior notes written by myself or my colleagues may have been "brought forward" into today's note. My signature on this note, however, is an attestation that I personally performed the exam, history, and/or decision-making noted today, and, unless otherwise indicated, the interactions with patient, family, and staff as well as the review of records all occurred today. I also attest that the listed assessment and stated plan reflect my best clinical judgment today based on the combination of historical information, prior notes, and today's exam/ interactions. When time spent is documented, it refers only to time spent today by the signer, or if indicated, combined time spent today by collaborating physician/nurse practitioner. . Winifred Freeman Apr 19, 2018 14:18
[2018-04-19] MEDS ORDERED: HYDROmorphone HCL PF 2 MG/ML VIAL IV PUSH SCH (16:00)
[2018-04-19] MEDS ORDERED: LORazepam 2 MG/ML VIAL IV PUSH SCH (16:00)
--- NOTE | 2018-04-19 16:00 | HHI.DS ---
Summary Note Date of : Apr 19, 2018 Time Of : 15:43 Admission Date Apr 15, 2018 at 02:34 Admitting Diagnosis Cardiac arrest Diagnosis at Time of : Brief History 77-year-old man presents emergency department from nursing facility following cardiac arrest. Patient was reportedly normal an hour before EMS was called, with a medical check on again he was unresponsive. EMS arrived to find CPR in progress. Initial rhythm of PEA, he has received 2 cycles of CPR and 2 doses of epinephrine with return of spontaneous circulation in route. Then lost pulses again and PEA arrest, responded again to epinephrine. He was intubated. No other history is available. CBC/BMP: 04/19/18 0810 04/19/18 0810 Significant Findings Laboratory Tests Test 04/16/18 21:35 04/17/18 04:04 04/17/18 04:05 04/17/18 10:18 Blood Gas HCO3 12 mmol/L (22-26) 19 mmol/L (22-26) Blood Gas Base Excess -12.0 mmol/L (-2-2) -3.4 mmol/L (-2-2) Arterial Blood Partial Pressure CO2 20 mmHg (38-42) 25 mmHg (38-42) Arterial Blood Partial Pressure O2 205 mmHg (61-120) 168 mmHg (61-120) Blood Gas Hemoglobin 10.8 G/DL (12.0-16.0) 10.4 G/DL (12.0-16.0) White Blood Count 13.0 TH/MM3 (4.0-11.0) Red Blood Count 3.27 MIL/MM3 (4.50-5.90) Hemoglobin 10.1 GM/DL (13.0-17.0) Hematocrit 30.4 % (39.0-51.0) Platelet Count 59 TH/MM3 (150-450) Mean Platelet Volume 11.3 FL (7.0-11.0) Neutrophils (%) (Auto) 90.3 % (16.0-70.0) Lymphocytes (%) (Auto) 3.7 % (9.0-44.0) Neutrophils # (Auto) 11.7 TH/MM3 (1.8-7.7) Lymphocytes # (Auto) 0.5 TH/MM3 (1.0-4.8) Band Neutrophils % 48 % (0-6) Lymphocytes % 1 % (9-44) Neutrophils # (Manual) 12.9 TH/MM3 (1.8-7.7) Metamyelocytes 7 % (0-1) Nucleated Red Blood Cells 5 /100 WBC (0-0) Toxic Vacuolation PRESENT (NONE SEEN) Dohle Bodies PRESENT (NONE SEEN) Platelet Estimate LOW (NORMAL) Platelet Morphology Comment ENLARGED (NORMAL) Prothrombin Time 31.7 SEC (9.8-11.6) Blood Urea Nitrogen 39 MG/DL (7-18) Creatinine 3.05 MG/DL (0.60-1.30) Random Glucose 125 MG/DL (74-106) Total Protein 4.2 GM/DL (6.4-8.2) Albumin 2.0 GM/DL (3.4-5.0) Calcium Level 5.9 MG/DL (8.5-10.1) Phosphorus Level 7.4 MG/DL (2.5-4.9) Alkaline Phosphatase 190 U/L (45-117) Aspartate Amino Transf (AST/SGOT) 8331 U/L (15-37) Alanine Aminotransferase (ALT/SGPT) 3769 U/L (12-78) Total Bilirubin 4.0 MG/DL (0.2-1.0) Carbon Dioxide Level 16.3 MEQ/L (21.0-32.0) Anion Gap 27 MEQ/L (5-15) Estimat Glomerular Filtration Rate 20 ML/MIN (>89) Protein Corrected Calcium 7.3 MG/DL (8.5-10.1) Total Creatine Kinase 5736 U/L (39-308) Creatine Kinase MB 89.1 NG/ML (0.5-3.6) Lactic Acid Level 15.7 mmol/L (0.4-2.0) Ammonia 105 MCMOL/L (11-32) Arterial Blood pH 7.50 (7.380-7.420) Test 04/17/18 19:04 04/18/18 04:20 04/19/18 08:10 Lactic Acid Level 12.8 mmol/L (0.4-2.0) 8.6 mmol/L (0.4-2.0) Total Creatine Kinase 7633 U/L (39-308) 8074 U/L (39-308) Creatine Kinase MB 96.9 NG/ML (0.5-3.6) 94.4 NG/ML (0.5-3.6) White Blood Count 13.8 TH/MM3 (4.0-11.0) 12.6 TH/MM3 (4.0-11.0) Red Blood Count 3.71 MIL/MM3 (4.50-5.90) 3.85 MIL/MM3 (4.50-5.90) Hemoglobin 11.1 GM/DL (13.0-17.0) 11.7 GM/DL (13.0-17.0) Hematocrit 33.9 % (39.0-51.0) 34.7 % (39.0-51.0) Platelet Count 59 TH/MM3 (150-450) 47 TH/MM3 (150-450) Mean Platelet Volume 11.2 FL (7.0-11.0) 11.8 FL (7.0-11.0) Neutrophils % (Manual) 77 % (16-70) 86 % (16-70) Band Neutrophils % 18 % (0-6) Lymphocytes % 4 % (9-44) 1 % (9-44) Neutrophils # (Manual) 13.1 TH/MM3 (1.8-7.7) 11.7 TH/MM3 (1.8-7.7) Nucleated Red Blood Cells 3 /100 WBC (0-0) 1 /100 WBC (0-0) Toxic Granulation 1+ (NORMAL) Platelet Estimate LOW (NORMAL) LOW (NORMAL) Blood Urea Nitrogen 48 MG/DL (7-18) 60 MG/DL (7-18) Creatinine 3.62 MG/DL (0.60-1.30) 4.27 MG/DL (0.60-1.30) Random Glucose 168 MG/DL (74-106) 156 MG/DL (74-106) Total Protein 4.1 GM/DL (6.4-8.2) 4.1 GM/DL (6.4-8.2) Albumin 1.8 GM/DL (3.4-5.0) 1.7 GM/DL (3.4-5.0) Calcium Level 5.5 MG/DL (8.5-10.1) 5.7 MG/DL (8.5-10.1) Phosphorus Level 6.2 MG/DL (2.5-4.9) 5.4 MG/DL (2.5-4.9) Alkaline Phosphatase 185 U/L (45-117) 179 U/L (45-117) Aspartate Amino Transf (AST/SGOT) 4655 U/L (15-37) 1361 U/L (15-37) Alanine Aminotransferase (ALT/SGPT) 3442 U/L (12-78) 2307 U/L (12-78) Total Bilirubin 6.0 MG/DL (0.2-1.0) 9.1 MG/DL (0.2-1.0) Chloride Level 94 MEQ/L (98-107) 90 MEQ/L (98-107) Anion Gap 19 MEQ/L (5-15) 19 MEQ/L (5-15) Estimat Glomerular Filtration Rate 16 ML/MIN (>89) 14 ML/MIN (>89) Protein Corrected Calcium 6.8 MG/DL (8.5-10.1) 7.1 MG/DL (8.5-10.1) Ammonia 62 MCMOL/L (11-32) Neutrophils (%) (Auto) 91.0 % (16.0-70.0) Lymphocytes (%) (Auto) 3.4 % (9.0-44.0) Neutrophils # (Auto) 11.5 TH/MM3 (1.8-7.7) Lymphocytes # (Auto) 0.4 TH/MM3 (1.0-4.8) Metamyelocytes 2 % (0-1) Myelocytes 1 % (0-0) Platelet Morphology Comment ENLARGED (NORMAL) Imaging Last 24 hours Impressions Chest X-Ray 04/15/18 0000 Signed Impressions: CONCLUSION: ET tube in good position. NG tube with tip in the distal esophagus. This should be advanced. Linear atelectasis or consolidation medial left base. Hospital Course Remarks/Hospital Course 77-year-old man presents emergency department from nursing facility following cardiac arrest. Patient was reportedly normal an hour before EMS was called, with a medical check on again he was unresponsive. EMS arrived to find CPR in progress. Initial rhythm of PEA, he has received 2 cycles of CPR and 2 doses of epinephrine with return of spontaneous circulation in route. Then lost pulses again and PEA arrest, responded again to epinephrine. He was intubated. No other history is available. 04/15: Patient remains very critically ill. This morning due to increased pressor requirements patient was started on vasopressin in addition to norepinephrine. He is currently undergoing hypothermia protocol. Continuous oozing from cooling catheter site. Currently on norepinephrine at 12 micrograms per minute and vasopressin at 0.04. Urine output is low. Refractory metabolic acidosis requiring additional bicarb pushes this morning and continues bicarb infusion. He sedated with midazolam and fentanyl infusions. 04/16: Patient continues on vasopressors to maintain MAP greater than 65, echo revealed EF 20%. Rewarming initiated this a.m.. Severe acidosis worsening. Noted ischemic changes bilateral lower extremities no pulses palpated or dopplerable DP, PT, popliteal. Venous and arterial Doppler studies in progress. Patient noted to be in DIC yesterday ,received cryoprecipitate. Fibrinogen level pending. Hemoglobin noted to be 7.2, plan for transfusion packed red blood cells. Cardiology also has been consulted. 04/17: Sedation discontinued last evening. Patient remains encephalopathic. EEG , CT brain pending. Neurology has been consulted. Arterial Doppler bilaterally reveals severe bilateral lower extremity disease, appears non- reconstructable vascular surgery has been consult for review and evaluation. The patient continues on dobutamine at 5 mics and vasopressin to maintain a map of 65. Lactic acid continues to decline or remains unchanged secondary to liver inability to clear lactic acid as well as continued ischemia of bilateral lower extremities, secondary to severe PAD. 04/18: Per palliative care user experience team lead Ms. Freeman plan for possible comfort care measures to be instituted tomorrow. The patient remains encephalopathic EEG showed moderate diffuse encephalopathy. The patient has been off of sedation for greater than 48 hours without any response. 04/19: No change in neurological status no change in neurological status. Rhabdomyolysis, creatinine kinase enzymes and lactic acid continue to increase secondary. Comfort care measures to be initiated this afternoon. Comfort care in initiated, patient seen by janitorial services supervisor. The patient at [id number] Monica Quinones MD Apr 19, 2018 16:00
== END 2018-04-19 15:43 | disposition expired ==
LOC: NEPE 01:21 → NEDA 02:34 → HIMN 05:55
PROVIDERS: ADMIT Internal Medicine Critical Care Medicine; ATTEND Internal Medicine Critical Care Medicine
PROC: 5A1955Z Respiratory Ventilation, Greater than 96 Consecutive Hours (ICD-10-PCS; principal; 2018-04-15)
PROC: 6A4Z0ZZ Hypothermia, Single (ICD-10-PCS; 2018-04-15)
PROC: 30233K1 Transfusion of Nonautologous Frozen Plasma into Peripheral Vein, Percutaneous Approach (ICD-10-PCS; 2018-04-15)
PROC: 30233M1 Transfusion of Nonautologous Plasma Cryoprecipitate into Peripheral Vein, Percutaneous Approach (ICD-10-PCS; 2018-04-15)
PROC: 06HY33Z Insertion of Infusion Device into Lower Vein, Percutaneous Approach (ICD-10-PCS; 2018-04-15)
PROC: 30233N1 Transfusion of Nonautologous Red Blood Cells into Peripheral Vein, Percutaneous Approach (ICD-10-PCS; 2018-04-16)
DX: I46.9 Cardiac arrest, cause unspecified (principal); D65 Disseminated intravascular coagulation [defibrination syndrome]; I21.4 Non-ST elevation (NSTEMI) myocardial infarction; J96.00 Acute respiratory failure, unspecified whether with hypoxia or hypercapnia; K72.00 Acute and subacute hepatic failure without coma; E87.2 Acidosis; M62.82 Rhabdomyolysis; N17.9 Acute kidney failure, unspecified; G93.1 Anoxic brain damage, not elsewhere classified; Z99.11 Dependence on respirator [ventilator] status; F03.90 Unspecified dementia, unspecified severity, without behavioral disturbance, psychotic disturbance, mood disturbance, and anxiety; I11.0 Hypertensive heart disease with heart failure; I50.9 Heart failure, unspecified; I25.10 Atherosclerotic heart disease of native coronary artery without angina pectoris; I73.9 Peripheral vascular disease, unspecified; R40.2433 Glasgow coma scale score 3-8, at hospital admission; Z51.5 Encounter for palliative care; Z66 Do not resuscitate; D64.9 Anemia, unspecified; I25.2 Old myocardial infarction; I25.5 Ischemic cardiomyopathy; E87.5 Hyperkalemia; R57.0 Cardiogenic shock; I27.20 Pulmonary hypertension, unspecified
CPT/HCPCS: 36430; 36556; 36600; 70450; 70551; 71045; 76700; 76937; 80048; 80053; 80202; 80307; 81001; 82140; 82550; 82552; 82805; 82948; 83605; 83735; 84100; 84155; 84484; 85007; 85027; 85384; 85610; 85730; 86850; 86900; 86901; 86920; 86927; 86965; 87040; 87070; 87086; 87205; 87641; 93005; 93306; 93925; 93970; 94002; 94003; 94640; 94664; 95819; J0610; J0692; J1170; J1250; J1720; J1980; J2060; J2250; J2543; J3010; J3370; J7030; J7050; J7060; J7070; P9016; P9017